=== PATIENT | male | born 1955 | race African-American/Black ===

== ENCOUNTER → 2017-01-28 12:53 | Emergency (ER) | payer OTHER ==
[2017-01-28 13:18] VITALS: BP 0/0
== END | disposition left against medical advice (07) ==
LOC: ED 12:53
DX: R06.02 Shortness of breath (principal); Z53.21 Procedure and treatment not carried out due to patient leaving prior to being seen by health care provider

== ENCOUNTER → 2017-02-09 14:52 | Emergency (ER) | payer SELFPAY ==
[2017-02-09 15:32] VITALS: BP 124/89
--- NOTE | 2017-02-09 20:41 | ED ---
Elisha Thakkar SooYoung, scribed for Evert Prince MD on 02/09/17 at 1530 . Substance Abuse/Use - HPI Summary HPI Summary: A 61 y/o M GREGORY presents to ED with ETOH intoxication. Pt was found laying on the sidewalk, and unable to get up. Last seen in ED on 01/28/17. Police and EMS were called. At bedside, pt says he "drank one beer," says he doesn't feel well , doesn't feel "conscious." Pt states he's unable to walk. PMHx: HTN, take Atenolol. - History Of Current Complaint Chief Complaint: EDSubstanceAbuse Stated Complaint: 2208 Time Seen by Provider: 02/09/17 15:06 Hx Obtained From: Patient Ingestion History: Type/Name Of Drug - ETOH Overdose Characteristics: Oral - Allergies/Home Medications Allergies/Adverse Reactions: Allergies Allergy/AdvReac Type Severity Reaction Status Date / Time No Known Allergies Allergy Verified 09/04/14 00:23 PMH/Surg Hx/FS Hx/Imm Hx Previously Healthy: No - LEVEL 5 CAVEAT - ETOH INTOXICATION Endocrine/Hematology History: Denies: Hx Diabetes Cardiovascular History: Reports: Hx Hypertension - on meds Denies: Hx Pacemaker/ICD Sensory History: Denies: Hx Hearing Aid Psychiatric History: Reports: Hx Depression Denies: Hx Panic Disorder - Surgical History Surgery Procedure, Year, and Place: rt hand cyst removal as a child; laceration repair rt forearm Infectious Disease History: Denies: Traveled Outside the [place] in Last 30 Days - Family History Known Family History: Positive: Hypertension, Diabetes - Social History Occupation: Unemployed Lives: Alone Alcohol Use: Daily Alcohol Amount: "beer" almost daily Hx Substance Use: Yes Substance Use Comment - Amount & Last Used: rare Hx Tobacco Use: Yes Smoking Status (MU): Heavy Every Day Tobacco Smoker Type: Cigarettes Review of Systems Constitutional: Other - pos: ETOH intoxication Negative: Fever All Other Systems Reviewed And Are Negative: Yes Physical Exam - Summary Physical Exam Summary: The patient is well-nourished in no acute distress and in no acute pain. The skin is warm and dry and skin color reflects adequate perfusion. HEENT: The head is normocephalic and atraumatic. The pupils are equal and reactive. The conjunctivae are clear and without drainage. Nares are patent and without drainage. Mouth reveals moist mucous membranes. The external ears are intact. Neck is supple with full range of motion and non-tender. There are no carotid bruits. There is no neck vein distension. Respiratory: Chest is non-tender. Lungs are clear to auscultation and breath sounds are symmetrical and equal. Cardiovascular: Heart is regular rate and rhythm. There is no murmur or rub auscultated. Abdomen: The abdomen is soft and non-tender. Musculoskeletal: There is no back pain noted. Extremities are non-tender with full range of motion. Neurological: Patient is alert and oriented to person, place and time. The patient has symmetrical motor strength in all four extremities. Cranial nerves are grossly intact. Psychiatric: Appears intoxicated. Triage Information Reviewed: Yes Vital Signs On Initial Exam: Initial Vitals Temp Pulse Resp BP Pulse Ox 98 F 95 18 124/89 91 02/09/17 15:14 02/09/17 15:14 02/09/17 15:14 02/09/17 15:14 02/09/17 15:14 Vital Signs Reviewed: Yes Diagnostics - Vital Signs Vital Signs Temp Pulse Resp BP Pulse Ox 02/09/17 15:14 98 F 95 18 124/89 91 - Laboratory Lab Statement: Any lab studies that have been ordered have been reviewed, and results considered in the medical decision making process. Re-Evaluation - Re-Evaluation 1 Re-Evaluation Time: 20:14 Change: Unchanged Comment: Pt is alert after sleeping, requesting D/C. Course/Dx - Diagnoses Differential Diagnosis/HQI/PQRI: Positive: Alcohol Abuse Provider Diagnoses: Acute alcohol intoxication Discharge - Discharge Plan Condition: Stable Disposition: HOME Patient Education Materials: Alcohol Intoxication (ED) Referrals: Andrey Crespo MD [Primary Care Provider] - 3 Days Additional Instructions: Follow up with your primary care provider in 3 days. Please return to the ED if you experience new or worsening symptoms. The documentation as recorded by the Elisha oro SooYoung accurately reflects the service I personally performed and the decisions made by me, Evert Prince MD.
== END | disposition home or self-care (01) ==
LOC: ED 14:52
DX: F10.129 Alcohol abuse with intoxication, unspecified (principal); F17.210 Nicotine dependence, cigarettes, uncomplicated
CPT/HCPCS: 99282

== ENCOUNTER 2017-02-21 18:08 | Emergency (ER) | payer SELFPAY ==
[2017-02-21 18:25] VITALS: BP 114/77
--- NOTE | 2017-02-21 19:44 | RAD ---
Indication: Left lower rib pain. 3 views of the left ribs suggestion of a fracture of the left ninth and possibly 10th rib. The cortex appears to be somewhat discontinuous. IMPRESSION: Fracture of the left ninth and 10th ribs that is nondisplaced.
[2017-02-21] MEDS ORDERED: Ibuprofen TAB* 600 MG PO ONE (21:16)
--- NOTE | 2017-02-21 21:23 | ED ---
Jose Thakkar Thomas, scribed for Rigoberto Gaines MD on 02/21/17 at 1830 . GI/ HPI - HPI Summary HPI Summary: The pt is a 59 y/o M presenting to the ED c/o hunger. He states that he wants something to eatwarm. He denies eating in the last thre days. He additionally notes L-sided rib pain s/p a fall two days ago. He reports that it is painful when he takes deep breaths. He denies SOB. He takes Tylenol BID for an unspecified reason. He also takes blood pressure medication as well as medication for his depression. PMHx: HTN, depression. PSHx: laceration repair right forearm. SHx: smpoking, daily alcohol use, no illicit drug use. FHx: DM, HTN. - History of Current Complaint Chief Complaint: EDWeakness Stated Complaint: WEAKNESS Hx Obtained From: Patient Onset/Duration: Still Present Timing: Constant Associated Signs and Symptoms: Positive: Other: - POS: hunger (last ate three days ago), L-sided rib pain s/p a fall two days ago Aggravating Factor(s): Nothing Alleviating Factor(s): Nothing - Additional Pertinent History Primary Care Physician: [id number] - Allergy/Home Medications Allergies/Adverse Reactions: Allergies Allergy/AdvReac Type Severity Reaction Status Date / Time No Known Allergies Allergy Verified 09/04/14 00:23 PMH/Surg Hx/FS Hx/Imm Hx Previously Healthy: No Endocrine/Hematology History: Denies: Hx Diabetes Cardiovascular History: Reports: Hx Hypertension - on meds Denies: Hx Pacemaker/ICD Sensory History: Denies: Hx Hearing Aid Psychiatric History: Reports: Hx Depression Denies: Hx Panic Disorder - Surgical History Surgery Procedure, Year, and Place: rt hand cyst removal as a child; laceration repair rt forearm Infectious Disease History: No Infectious Disease History: Denies: Traveled Outside the [place] in Last 30 Days - Family History Known Family History: Positive: Hypertension, Diabetes - Social History Alcohol Use: Daily Alcohol Amount: "beer" almost daily Hx Substance Use: Yes Substance Use Type: Reports: None Substance Use Comment - Amount & Last Used: rare Hx Tobacco Use: Yes Smoking Status (MU): Heavy Every Day Tobacco Smoker Type: Cigarettes Review of Systems Negative: Fever Positive: Other - POS: L-sided rib pain, worsened with deep breaths Positive: Other - POS: hunger (last ate three days ago) All Other Systems Reviewed And Are Negative: Yes Physical Exam Triage Information Reviewed: Yes Vital Signs On Initial Exam: Initial Vitals Temp Pulse Resp BP Pulse Ox 98.8 F 96 16 114/77 96 02/21/17 18:18 02/21/17 18:18 02/21/17 18:18 02/21/17 18:18 02/21/17 18:18 Vital Signs Reviewed: Yes Appearance: Positive: Well-Appearing, No Pain Distress, Well-Nourished Skin: Positive: Warm, Skin Color Reflects Adequate Perfusion, Dry Head/Face: Positive: Normal Head/Face Inspection Eyes: Positive: EOMI, CACHORRO ENT: Positive: Normal ENT inspection Neck: Positive: Supple, Nontender Respiratory/Lung Sounds: Positive: Clear to Auscultation, Breath Sounds Present Cardiovascular: Positive: RRR Abdomen Description: Positive: Nontender, Soft Musculoskeletal: Positive: Normal, Strength/ROM Intact Neurological: Positive: Normal, Sensory/Motor Intact, Alert, Oriented to Person Place, Time Psychiatric: Positive: Affect/Mood Appropriate - [place] Coma Scale Coma Scale Total: 15 Diagnostics - Vital Signs Vital Signs Temp Pulse Resp BP Pulse Ox 02/21/17 18:18 98.8 F 96 16 114/77 96 - Laboratory Lab Statement: Any lab studies that have been ordered have been reviewed, and results considered in the medical decision making process. - Radiology CXR with Ribs Xray Interpretation: Positive (See Comments) - Fracture of the left ninth and 10th ribs that is nondisplaced Radiology Interpretation Completed By: Radiologist ARIELLA Course/Dx - Course Assessment/Plan: The pt is a 59 y/o M presenting to the ED c/o hunger. He states that he wants something to eatwarm. He denies eating in the last thre days. He additionally notes L-sided rib pain s/p a fall two days ago. He reports that it is painful when he takes deep breaths. He denies SOB. He takes Tylenol BID for an unspecified reason. He also takes blood pressure medication as well as medication for his depression. PMHx: HTN, depression. PSHx: laceration repair right forearm. SHx: smpoking, daily alcohol use, no illicit drug use. FHx: DM, HTN. In the ED course the patient was given hot food. XR ribs reveals Fracture of the left ninth and 10th ribs that is nondisplaced. ED physician has reviewed this radiology report and agrees. DISCUSSED X-RAY REPORT WITH PATIENT AND DISCUSSED USE OF INCENTIVE SPIROMETER WITH PATIENT. HE WILL F/U WITH PMD. - Diagnoses Provider Diagnoses: Left rib fracture Discharge - Discharge Plan Condition: Stable Disposition: HOME Prescriptions: Ibuprofen TAB* [Motrin TAB* 600 MG] 600 mg PO Q6H PRN #20 tab PRN Reason: Pain Patient Education Materials: Rib Fracture (ED) Referrals: Andrey Crespo MD [Primary Care Provider] - Additional Instructions: FOLLOW UP WITH YOUR DOCTOR. RETURN TO THE EMERGENCY DEPARTMENT FOR ANY WORSENING OF YOUR CONDITION OR QUESTIONS OR CONCERNS. The documentation as recorded by the Jose oro Thomas accurately reflects the service I personally performed and the decisions made by me, Rigoberto Gaines MD.
== END 2017-02-21 22:09 | disposition home or self-care (01) ==
LOC: ED 18:08
DX: S22.32XA Fracture of one rib, left side, initial encounter for closed fracture (principal); I10 Essential (primary) hypertension; F17.210 Nicotine dependence, cigarettes, uncomplicated; W19.XXXA Unspecified fall, initial encounter; Y92.9 Unspecified place or not applicable
CPT/HCPCS: 99282; A9270-GY

== ENCOUNTER 2017-03-05 16:16 | Emergency (ER) | payer SELFPAY ==
[2017-03-05] MEDS ORDERED: Thiamine IV* 100 MG, Folic Acid IV* 1 MG, Multiple Vitamin IV ADULT* 10 ML in NS 0.9% 1... IV ONE (17:01)
[2017-03-05 17:12] LABS: Hematocrit 44 % (42-52); Hemoglobin 15.1 g/dl (14.0-18.0); Mean Corpuscular HGB Conc 34 g/dl (31-36); Mean Corpuscular Hemoglobin 35 pg (27-31); Mean Corpuscular Volume 103 fL (80-94); Mean Platelet Volume 7 um3 (7.4-10.4); Red Blood Count 4.28 10^6/ul (4.0-5.4); Red Cell Distribution Width 14 % (10.5-15); White Blood Count 6.2 10^3/ul (3.5-10.8)
[2017-03-05 17:26] LABS: ALT 45 U/L (7-52); Albumin 5.1 g/dL (3.2-5.2); Alkaline Phosphatase 66 U/L (34-104); BUN/Creatinine Ratio 16.3 (8-20); Blood Urea Nitrogen 15 mg/dL (6-24); CO2 Carbon Dioxide 25 mmol/L (22-32); Calcium 9.7 mg/dL (8.6-10.3); Chloride 98 mmol/L (101-111); Creatine Kinase 260 U/L (10-223); EGFR African American 108.3 (>60); EGFR Non-African American 84.2 (>60); Globulin 3.6 g/dL (2-4); Glucose 81 mg/dL (70-100); Sodium 134 mmol/L (133-145); Total Protein 8.7 g/dL (6.4-8.9)
[2017-03-05] MEDS ORDERED: LORazepam INJ* 2 MG/ML 1 ML VIAL IV PUSH ONE ×2 (17:27→22:37)
[2017-03-05 17:45] LABS: Anion Gap 11 mmol/L (2-11)
--- NOTE | 2017-03-05 17:45 | RAD ---
INDICATION: Questionable head injury in the presence of EtOH COMPARISON: CT brain dated March 31, 2016 TECHNIQUE: Contiguous axial sections of the brain were obtained from the skull base to the vertex without contrast. FINDINGS: The ventricles, cisterns and sulci exhibit symmetrical involutional changes not greatly changed since the previous head CT and advanced for the patient's age. There is mild periventricular and subcortical white matter hypoattenuation which can be seen with chronic microvascular disease. Otherwise the perez-white matter differentiation is adequately maintained and there is no sulcal effacement. No significant focal abnormality or mass effect is present. There is no evidence for intracranial hemorrhage. No significant focal osseous abnormality is present. The visualized portion of the paranasal sinuses and mastoid air cells appear clear. IMPRESSION: Stable chronic findings as described above without CT evidence of acute intracranial injury.
[2017-03-05 17:58] LABS: Acetaminophen < 15 mcg/mL; Salicylate < 2.50 mg/dL (<30)
[2017-03-05 18:06] LABS: Alcohol 467 mg/dL (<10)
[2017-03-05 18:09] LABS: TSH (Thyroid Stimulating Horm) 0.31 mcIU/mL (0.34-5.60)
--- NOTE | 2017-03-05 18:22 | RAD ---
INDICATION: Right shoulder pain after a fall. +EtOH. COMPARISON: Chest x-ray dated March 31, 2016 TECHNIQUE: Single AP portable view of the chest and 3 views of the right shoulder were obtained. FINDINGS: Image quality is compromised due to the relative inferiority of a portable chest x-ray. The heart and mediastinum exhibit normal size and contour. The lungs are grossly clear. There is no evidence of a large pleural effusion. Overlying the superior lateral margin of the right humeral head there is a stable 3 mm long oval shaped focus of calcium which could represent calcific tendinitis of the supraspinatus tendon. The bones are otherwise well corticated and appropriately aligned. IMPRESSION: 1. No radiographic evidence for acute cardiopulmonary abnormality on this portable chest x-ray. 2. No radiographic evidence of acute traumatic injury to the right shoulder.
[2017-03-05 21:57] LABS: Benzodiazepine Urine Screen None Detected (None Detect)
[2017-03-05 22:03] LABS: Urine Bacteria Absent (Absent); Urine Bilirubin Negative (Negative); Urine Glucose Negative (Negative); Urine Nitrite Negative (Negative)
--- NOTE | 2017-03-06 06:42 | ED ---
Leatha Thakkar Rebecca, scribed for Evert Prince MD on 03/06/17 at 0334 . Progress - Progress Note Progress Note: Pt was signed out from Dr. Latham at shift change, pending disposition. - Results/Orders Results/Orders: CT Neck, as read by radiologist: Negative for cervical fracture or acute cervical malalignment. Anterolisthesis of C2 on C3 as well as the reversal of the cervical lordosis are chronic and were present on March 31, 2016. 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 Blebs lung apices. ED physician reviewed radiology report and agrees . Re-Evaluation - Re-Evaluation First Eval Re-Evaluation Time: 06:35 Change: Improved Comment: Discussed CT results and D/C plan. Course/Dx - Course Course Of Treatment: Pt was signed out from Dr. Latham at shift change, pending disposition. Discussed care of pt with Dr. Latham who requested a Neck CT. Neck CT reveals no acute findings. Pt is stable and will be D/C to home with Dx of concussion, R shoulder contusion and acute alcohol intoxication. He understands and agrees. Elevated BP noted and advised to f/u. - Diagnoses Provider Diagnoses: Concussion, Contusion of right shoulder, Alcohol intoxication - Provider Notifications Discussed Care Of Patient With: Sanjuana Latham Time Discussed With Above Provider: 03:32 Instructed by Provider To: Other - Dr. Latham called and felt that the pt needed a C-Spine CT, so it has been ordered The documentation as recorded by the darioibLeatha love Rebecca accurately reflects the service I personally performed and the decisions made by me, Evert Prince MD.
[2017-03-06 06:59] VITALS: BP 143/96
--- NOTE | 2017-03-06 10:49 | RAD ---
INDICATION: Head trauma. Alcohol use. Question fracture. COMPARISON: March 31, 2016 CT. TECHNIQUE: Multidetector CT images foramen magnum to lung apices without contrast. Multiplanar reformation. REPORT: Pulmonary bulla noted at the RIGHT lung apex. 3 mm degenerative C2-C3 anterolisthesis without significant change. Negative for facet subluxation at any level. No cervical vertebral body or posterior element fracture evident. Negative for paravertebral hematoma. Diffuse degenerative spondylosis and facet joint osteoarthritis. At C2-C3 anterolisthesis, uncinate process spurring, and disc height loss and facet joint osteoarthritis results in moderate RIGHT and severe LEFT foraminal stenosis. At C3-C4 there is mild dorsal disc osteophyte complex results in mild acquired central canal stenosis. Uncinate process spurring and facet joint osteoarthritis results in severe RIGHT foraminal stenosis. At C4-C5 uncinate process spurring and facet joint osteoarthritis results in moderate RIGHT foraminal stenosis. At C5-C6 uncinate process spurring results in mild RIGHT acquired foraminal stenosis. At C6-C7 uncinate process spurring and facet joint osteoarthritis results in mild RIGHT and moderate LEFT foraminal stenosis. IMPRESSION: No CT evidence for traumatic cervical spine injury. No significant change in diffuse degenerative spondylosis and posterior element osteoarthritis with associated mild C3-C4 acquired central canal stenosis and multilevel foraminal stenosis.
== END 2017-03-06 06:59 | disposition home or self-care (01) ==
LOC: ED 16:16
DX: S06.0X9A Concussion with loss of consciousness of unspecified duration, initial encounter (principal); S40.011A Contusion of right shoulder, initial encounter; F10.129 Alcohol abuse with intoxication, unspecified; W19.XXXA Unspecified fall, initial encounter; Y92.9 Unspecified place or not applicable
CPT/HCPCS: 36415; 70450; 71010; 72125; 80053; 80307; 80320; 80329; 81003; 81015; 82140; 82550; 83605; 83735; 84443; 85025; 85610; 93005; 96360; 96374; 96376; 99284; G0480; J2060; J3411

== ENCOUNTER 2017-03-15 22:28 | Emergency (ER) | payer OTHER ==
--- NOTE | 2017-03-16 06:48 | ED ---
Stepan Thakkar Nikita, scribed for Rigoberto Gaines MD on 03/16/17 at 0104 . Substance Abuse/Use - HPI Summary HPI Summary: This patient is a 61 year old M BIB police to ED with a chief complaint of ETOH abuse since 1000. Pt was found in parking lot intoxicated. Police fed him, and he is currently sleeping. The patient rates the pain 8/10 in severity. Symptoms aggravated by nothing. Symptoms alleviated by nothing. Patient reports bilateral LE pain. - History Of Current Complaint Chief Complaint: EDSubstanceAbuse Stated Complaint: GENERAL ILLNESS Time Seen by Provider: 03/16/17 00:05 Hx Obtained From: Patient Onset/Duration of Drug/ETOH Abuse: Hours Timing Of Abuse: Daily Severity Initially: Moderate Severity Currently: Moderate Aggravating Factor(s): Nothing Alleviating Factor(s): Nothing Associated Signs And Symptoms: Other: - bilateral LE pain - Allergies/Home Medications Allergies/Adverse Reactions: Allergies Allergy/AdvReac Type Severity Reaction Status Date / Time No Known Allergies Allergy Verified 03/15/17 22:45 PMH/Surg Hx/FS Hx/Imm Hx Endocrine/Hematology History: Denies: Hx Diabetes Cardiovascular History: Reports: Hx Hypertension - on meds Denies: Hx Pacemaker/ICD Sensory History: Denies: Hx Hearing Aid Psychiatric History: Reports: Hx Depression Denies: Hx Panic Disorder - Surgical History Surgery Procedure, Year, and Place: rt hand cyst removal as a child; laceration repair rt forearm Infectious Disease History: No Infectious Disease History: Denies: Traveled Outside the [place] in Last 30 Days - Family History Known Family History: Positive: Hypertension, Diabetes - Social History Alcohol Use: Daily Alcohol Amount: "beer" almost daily Hx Substance Use: Yes Substance Use Type: Reports: None Substance Use Comment - Amount & Last Used: rare Hx Tobacco Use: Yes Smoking Status (MU): Heavy Every Day Tobacco Smoker Type: Cigarettes Review of Systems Positive: Other - bilateral LE pain Neurological: Other - ETOH intoxication All Other Systems Reviewed And Are Negative: Yes Physical Exam Triage Information Reviewed: Yes Vital Signs On Initial Exam: Initial Vitals Temp Pulse Resp BP Pulse Ox 97.2 F 109 18 135/103 93 03/15/17 22:41 03/15/17 22:41 03/15/17 22:41 03/15/17 22:41 03/15/17 22:41 Vital Signs Reviewed: Yes Appearance: Positive: Well-Appearing, No Pain Distress Skin: Positive: Warm, Skin Color Reflects Adequate Perfusion, Dry Head/Face: Positive: Normal Head/Face Inspection Eyes: Positive: EOMI, CACHORRO ENT: Positive: Normal ENT inspection Neck: Positive: Supple, Nontender Respiratory/Lung Sounds: Positive: Clear to Auscultation, Breath Sounds Present Cardiovascular: Positive: RRR Abdomen Description: Positive: Nontender, Soft Bowel Sounds: Positive: Present Musculoskeletal: Positive: Normal, Strength/ROM Intact Neurological: Positive: Normal, Sensory/Motor Intact, Alert, Oriented to Person Place, Time Psychiatric: Positive: Affect/Mood Appropriate - [place] Coma Scale Coma Scale Total: 15 Diagnostics - Vital Signs Vital Signs Temp Pulse Resp BP Pulse Ox 03/15/17 22:41 97.2 F 109 18 135/103 93 - Laboratory Lab Statement: Any lab studies that have been ordered have been reviewed, and results considered in the medical decision making process. Course/Dx - Course Assessment/Plan: This patient is a 61 year old M BIB police to ED with a chief complaint of ETOH abuse since 1000. Pt was found in parking lot intoxicated. Police fed him, and he is currently sleeping. The patient rates the pain 8/10 in severity. Symptoms aggravated by nothing. Symptoms alleviated by nothing. Patient reports bilateral LE pain. In the ED course, pt slept. Medications reviewed. BP noted and advised to follow up with PCP. Pt will be discharged. Pt is agreeable with this plan. - Diagnoses Provider Diagnoses: Alcohol intoxication Discharge - Discharge Plan Condition: Stable Disposition: HOME Patient Education Materials: Alcohol Intoxication (ED) Referrals: Andrey Crespo MD [Primary Care Provider] - [facility]COH[facility] DR[facility] [Outside] [facility] [Outside] Additional Instructions: FOLLOW UP WITH YOUR DOCTOR. RETURN TO THE EMERGENCY DEPARTMENT FOR ANY WORSENING OF YOUR CONDITION OR QUESTIONS OR CONCERNS. The documentation as recorded by the Stepan oro Nikita accurately reflects the service I personally performed and the decisions made by me, Rigoberto Gaines MD.
[2017-03-16 09:38] VITALS: BP 139/74
== END 2017-03-16 09:05 | disposition home or self-care (01) ==
LOC: ED 22:28
DX: F10.129 Alcohol abuse with intoxication, unspecified (principal); Z86.79 Personal history of other diseases of the circulatory system; F17.210 Nicotine dependence, cigarettes, uncomplicated
CPT/HCPCS: 99282

== ENCOUNTER 2017-03-16 14:56 | Emergency (ER) | payer OTHER ==
--- NOTE | 2017-03-16 15:59 | ED ---
Throat Pain/Nasal Congestion - HPI Summary HPI Summary: Pt here w/ URI sx and generalized weakness, fatigue. Rhinorrhea, ST, cough past week. Reports h/o rib fx diagnosed a few weeks ago and concerned he may have pneumonia. He has tried nothing to alleviate sx. He smokes nad drinks ETOH (was d/c'd this morning - pt admits he didn't make it home to take his routine meds as he "couldn't make it".). He was intoxicated last night and reporting hunger. He is reporting hunger again now. Denies fever, chills, N/V/D, ab pain, dysuria, wounds, head injury. Reports he hurt his Rt shoulder weeks ago - explained he's had XR's here already - he did not remember these being done. Has HTN - did not take meds this morning when he left here - takes metoprolol 100mg in AM, 50mg PM and lisinopril. - History of Current Complaint Chief Complaint: EDExtremityLower Time Seen by Provider: 03/16/17 15:19 Hx Obtained From: Patient - Allergies/Home Medications Allergies/Adverse Reactions: Allergies Allergy/AdvReac Type Severity Reaction Status Date / Time No Known Allergies Allergy Verified 03/15/17 22:45 PMH/Surg Hx/FS Hx/Imm Hx Previously Healthy: No - intoxicated earlier today, may still be Endocrine/Hematology History: Denies: Hx Diabetes Cardiovascular History: Reports: Hx Hypertension - on meds - metoprolol 100mg AM , 50mg PM, lisinopril Denies: Hx Pacemaker/ICD Respiratory History: Denies: Hx Asthma, Hx Chronic Obstructive Pulmonary Disease (COPD), Hx Pneumonia Sensory History: Denies: Hx Hearing Aid Psychiatric History: Reports: Hx Depression, Hx Substance Abuse - ETOH Denies: Hx Panic Disorder - Surgical History Surgery Procedure, Year, and Place: rt hand cyst removal as a child; laceration repair rt forearm Infectious Disease History: No Infectious Disease History: Denies: Traveled Outside the [place] in Last 30 Days - Family History Known Family History: Positive: Hypertension, Diabetes - Social History Alcohol Use: Daily Alcohol Amount: "beer" almost daily Hx Substance Use: Yes Substance Use Type: Reports: None Substance Use Comment - Amount & Last Used: rare Hx Tobacco Use: Yes Smoking Status (MU): Current Every Day Smoker Type: Cigarettes Review of Systems Positive: Fatigue. Negative: Fever, Chills Eyes: Negative Negative: Photophobia, Blurred Vision, Diplopia, Drainage, Erythema Positive: Sore Throat, Nasal Discharge Cardiovascular: Negative Negative: Palpitations, Chest Pain Positive: Cough Gastrointestinal: Negative Negative: Abdominal Pain, Vomiting, Diarrhea, Nausea Genitourinary: Negative Musculoskeletal: Negative Skin: Negative Positive: Weakness - feels weak in general Positive: Anxious All Other Systems Reviewed And Are Negative: Yes Physical Exam Triage Information Reviewed: Yes Vital Signs On Initial Exam: Initial Vitals BP 144/101 03/16/17 15:19 Vital Signs Reviewed: Yes Appearance: Positive: No Pain Distress Skin: Positive: Warm, Dry Head/Face: Positive: Normal Head/Face Inspection Eyes: Positive: EOMI ENT: Positive: Hearing grossly normal Respiratory/Lung Sounds: Positive: Clear to Auscultation, Breath Sounds Present. Negative: Rales, Rhonchi, Wheezes Cardiovascular: Positive: Pulses are Symmetrical in both Upper and Lower Extremities, Tachycardia - mild - hasn't taken metoprolol today, S1, S2. Negative: Murmur, Rub, Leg Edema Left, Leg Edema Right Abdomen Description: Positive: Nontender, Soft. Negative: CVA Tenderness (R), CVA Tenderness (L) Bowel Sounds: Positive: Present Musculoskeletal: Positive: Normal, Strength/ROM Intact Neurological: Positive: Normal, Sensory/Motor Intact, Alert, Oriented to Person Place, Time, CN Intact II-III Psychiatric: Positive: Other - pt repeats himself but is aware he's doing so; subtle smell of ETOH; pleasant, cooperative but insistent at times - [place] Coma Scale Coma Scale Total: 15 Diagnostics - Vital Signs Vital Signs Temp Pulse Resp BP Pulse Ox 03/16/17 15:26 98.2 F 101 14 144/101 99 03/16/17 15:21 107 95 03/16/17 15:19 144/101 - Laboratory Result Diagrams: 03/16/17 16:20 03/16/17 16:20 Lab Statement: Any lab studies that have been ordered have been reviewed, and results considered in the medical decision making process. Re-Evaluation - Re-Evaluation First Eval Change: Improved - pt less persistent; pleasant, calm, cooperative after sleeping and receiving IVF and vitamins + sandwichs - okay to be d/c'd home via cab EENT Course/Dx - Course Course Of Treatment: Pt here w/ "not feeling well". Reports URI sx. CXR w/o pneumonia and influenza swabs neg. His labs indicate ETOH intoxication and elevated lactic level as a result as WBC, CRP WNL and no fever. He had mild tachycardiac w/ HTN upon arrival - admits he missed his metorpolol dose this morning - provided and vitals improved. He did not exhibit withdrawal sx throughout his course of stay. Walked to bathroom before d/c w/o assistance w/ good balance - appears coordinated, speech is clear, thoughts are clear. Agrees w/ d/c home via cab and discussed care for self to help him through URI sx. Discussed danger s/sx of when to return to ED. Pt agrees w/ plan. - Diagnoses Provider Diagnoses: URI, acute, Alcohol intoxication Discharge - Discharge Plan Condition: Stable Disposition: HOME Patient Education Materials: Upper Respiratory Infection (ED), Alcohol Intoxication (ED) Referrals: Andrey Crespo MD [Primary Care Provider] - Additional Instructions: Nasal wash (netti pot) & throat gargle 2 x day with 8 ounces of warm water + 1/ 4 teaspoon of salt Drink 60+ ounces of water daily Sleep 8+ hours per night Avoid Dairy and sugar Hot herbal/decaf tea with lemon & honey Chicken broth (preferably organic, free range chicken) Humidifier in house, but especially near bed at night Try a facial steam Vicks vapor rub Cough lozenges Consider taking Vitamin D3 5,000iu and Vitamin C 1,000mg every day during illness
[2017-03-16] MEDS ORDERED: Metoprolol Tartrate TAB* 50 mg PO ONE (16:05)
[2017-03-16 16:35] LABS: Hematocrit 36 % (42-52); Hemoglobin 12.2 g/dl (14.0-18.0); Mean Corpuscular HGB Conc 34 g/dl (31-36); Mean Corpuscular Hemoglobin 35 pg (27-31); Mean Corpuscular Volume 102 fL (80-94); Mean Platelet Volume 6 um3 (7.4-10.4); Red Blood Count 3.52 10^6/ul (4.0-5.4); Red Cell Distribution Width 14 % (10.5-15); White Blood Count 5.2 10^3/ul (3.5-10.8)
[2017-03-16 16:51] LABS: Albumin 4.7 g/dL (3.2-5.2); BUN/Creatinine Ratio 11.8 (8-20); C Reactive Protein 1.21 mg/L (< 5.00); Calcium 9.6 mg/dL (8.6-10.3); EGFR African American 118.7 (>60); EGFR Non-African American 92.3 (>60); Globulin 3.3 g/dL (2-4); Magnesium 1.7 mg/dL (1.9-2.7); Potassium 3.8 mmol/L (3.5-5.0); Total Bilirubin 0.6 mg/dL (0.2-1.0)
[2017-03-16 17:10] LABS: TSH (Thyroid Stimulating Horm) 0.51 mcIU/mL (0.34-5.60)
--- NOTE | 2017-03-16 17:15 | RAD ---
INDICATION: Cough COMPARISON: Chest x-ray dated March 05, 2017 TECHNIQUE: PA and lateral views of the chest were obtained. FINDINGS: The heart and mediastinum are normal in size and contour. The lungs are grossly clear. There is no evidence of large pleural effusion. Visualized bones are normal for the patient's age. There is no radiographic evidence of free air beneath the diaphragm IMPRESSION: No radiographic evidence of acute cardiopulmonary disease.
[2017-03-16] MEDS ORDERED: Magnesium Oxide TAB* 400 MG PO ONE (17:28)
[2017-03-16] MEDS ORDERED: Folic Acid TAB* 1 MG PO ONE (17:29)
[2017-03-16] MEDS ORDERED: Thiamine TAB* 100 MG TAB PO ONE (17:29)
[2017-03-16] MEDS: NS 0.9% 1000 ML* 2,000 ML IV ONE (18:23)
[2017-03-16 20:28] VITALS: BP 127/92
[2017-03-17] MEDS ORDERED: Cyanocobalamin TAB* 500 MCG PO ONE (17:30)
== END 2017-03-16 20:28 | disposition home or self-care (01) ==
LOC: ED 14:56
DX: J06.9 Acute upper respiratory infection, unspecified (principal); F10.129 Alcohol abuse with intoxication, unspecified; J34.89 Other specified disorders of nose and nasal sinuses; R53.1 Weakness; R53.83 Other fatigue; F17.210 Nicotine dependence, cigarettes, uncomplicated
CPT/HCPCS: 36415; 71020; 80053; 80320; 83605; 83735; 84443; 85025; 86140; 87502; 87651; 99282; A9270-GY; G0480

== ENCOUNTER 2017-03-31 20:29 | Emergency (ER) | payer OTHER ==
--- NOTE | 2017-03-31 21:44 | ED ---
Jose Thakkar Thomas, scribed for Andrey Peña MD on 03/31/17 at 2109 . Substance Abuse/Use - HPI Summary HPI Summary: The pt is a 61 y/o M BIBA after he was intoxicated on a [employer] bus and could not recall his home address due to recent alcohol use. He has a Hx of daily ETOH abuse per EMR. The patient admits to drinking alcohol today. He takes ibuprofen and atenolol. He denies any pain or head trauma. He denies any attempts to hurt himself. PMHx: HTN, depression, ETOH abuse. PSHx: R hand cyst removal, laceration repair right forearm. SHx: current smoker, daily alcohol use , no illicit drug use. FHx: DM, HTN. - History Of Current Complaint Chief Complaint: EDSubstanceAbuse Stated Complaint: ETOH Time Seen by Provider: 03/31/17 20:59 Hx Obtained From: Patient, Medical Records - EMR Ingestion History: Type/Name Of Drug - ETOH Overdose Characteristics: Oral Timing Of Abuse: Daily Character: Other - Intoxicated Aggravating Factor(s): Nothing Alleviating Factor(s): Nothing Associated Signs And Symptoms: Negative, Other: - He denies pain, trauma, or attempts to hurt himself. - Allergies/Home Medications Allergies/Adverse Reactions: Allergies Allergy/AdvReac Type Severity Reaction Status Date / Time No Known Allergies Allergy Verified 03/15/17 22:45 PMH/Surg Hx/FS Hx/Imm Hx Previously Healthy: No Endocrine/Hematology History: Denies: Hx Diabetes Cardiovascular History: Reports: Hx Hypertension - on meds - metoprolol 100mg AM , 50mg PM, lisinopril Denies: Hx Pacemaker/ICD Respiratory History: Denies: Hx Asthma, Hx Chronic Obstructive Pulmonary Disease (COPD), Hx Pneumonia Psychiatric History: Reports: Hx Depression, Hx Substance Abuse - ETOH Denies: Hx Panic Disorder - Surgical History Surgery Procedure, Year, and Place: rt hand cyst removal as a child; laceration repair rt forearm Infectious Disease History: No Infectious Disease History: Denies: Traveled Outside the [place] in Last 30 Days - Family History Known Family History: Positive: Hypertension, Diabetes - Social History Alcohol Use: Daily Alcohol Amount: "beer" almost daily Hx Substance Use: Yes Substance Use Type: Reports: None Substance Use Comment - Amount & Last Used: rare Hx Tobacco Use: Yes Smoking Status (MU): Current Every Day Smoker Type: Cigarettes Review of Systems Negative: Fever Negative: Other - NEGATIVE: any pain Neurological: Other - Intoxicated; NEGATIVE: head trauma. All Other Systems Reviewed And Are Negative: Yes Physical Exam Triage Information Reviewed: Yes Vital Signs On Initial Exam: Initial Vitals Temp Pulse Resp BP Pulse Ox 97.1 F 90 16 101/84 95 03/31/17 20:40 03/31/17 20:40 03/31/17 20:40 03/31/17 20:40 03/31/17 20:40 Appearance: Positive: Well-Appearing, No Pain Distress Skin: Positive: Warm, Skin Color Reflects Adequate Perfusion Head/Face: Positive: Normal Head/Face Inspection, Other - he is wearing a baseball cap. The cap was removed, head inspected and palptated and no injuries found. Eyes: Positive: EOMI, CACHORRO ENT: Positive: Normal ENT inspection Neck: Positive: Nontender Respiratory/Lung Sounds: Positive: Clear to Auscultation, Breath Sounds Present Cardiovascular: Positive: RRR. Negative: Murmur Abdomen Description: Positive: Nontender Musculoskeletal: Positive: Strength/ROM Intact Neurological: Positive: Sensory/Motor Intact, Alert, Oriented to Person Place, Time, CN Intact II-III, Other - The patient speaks with slight slurred delayed speach as if he is intoxicated. He follows command, and is cooperative. Diagnostics - Vital Signs Vital Signs Temp Pulse Resp BP Pulse Ox 03/31/17 20:46 93 92 03/31/17 20:40 97.1 F 90 16 101/84 95 - Laboratory Lab Statement: Any lab studies that have been ordered have been reviewed, and results considered in the medical decision making process. Course/Dx - Course Course Of Treatment: 61 yr old male who admits to drinking today, and appears intoxicated without any evidence of head trauma on exam. Will await ETOH and labs. - Diagnoses Provider Diagnoses: ETOH abuse Discharge - Discharge Plan Condition: Fair Disposition: OTHER Discharge Disposition Comment: sign out to Dr Latham at 2200 with labs, dispo, reeval pending. Referrals: Andrey Crespo MD [Primary Care Provider] - The documentation as recorded by the Jose oro Thomas accurately reflects the service I personally performed and the decisions made by Mariana barrientos Walter, MD.
[2017-03-31 21:53] LABS: Hematocrit 37 % (42-52); Hemoglobin 12.5 g/dl (14.0-18.0); Mean Corpuscular HGB Conc 34 g/dl (31-36); Mean Corpuscular Hemoglobin 36 pg (27-31); Mean Corpuscular Volume 105 fL (80-94); Mean Platelet Volume 7 um3 (7.4-10.4); Red Blood Count 3.47 10^6/ul (4.0-5.4); Red Cell Distribution Width 15 % (10.5-15)
[2017-03-31 21:57] LABS: Comments Flag Yes
[2017-03-31 22:09] LABS: ALT 13 U/L (7-52); AST 26 U/L (13-39); Albumin 4.3 g/dL (3.2-5.2); Alkaline Phosphatase 48 U/L (34-104); Anion Gap 8 mmol/L (2-11); BUN/Creatinine Ratio 13.9 (8-20); Blood Urea Nitrogen 20 mg/dL (6-24); CO2 Carbon Dioxide 27 mmol/L (22-32); Calcium 9.3 mg/dL (8.6-10.3); Chloride 103 mmol/L (101-111); EGFR African American 64.6 (>60); EGFR Non-African American 50.2 (>60); Globulin 2.9 g/dL (2-4); Glucose 92 mg/dL (70-100); Potassium 3.7 mmol/L (3.5-5.0); Sodium 138 mmol/L (133-145); Total Protein 7.2 g/dL (6.4-8.9)
[2017-03-31 22:39] LABS: Acetaminophen < 15 mcg/mL; Salicylate < 2.50 mg/dL (<30)
[2017-03-31 22:41] LABS: Urine Bilirubin Negative (Negative); Urine Glucose Negative (Negative); Urine Nitrite Negative (Negative)
[2017-03-31 22:48] LABS: Alcohol 450 mg/dL (<10)
[2017-03-31 22:48] LABS: Benzodiazepine Urine Screen None Detected (None Detect)
[2017-04-01 11:38] VITALS: BP 128/110
== END 2017-04-01 11:42 | disposition home or self-care (01) ==
LOC: ED 20:29
DX: F10.10 Alcohol abuse, uncomplicated (principal); I10 Essential (primary) hypertension; F32.9 Major depressive disorder, single episode, unspecified; F17.200 Nicotine dependence, unspecified, uncomplicated; Y90.8 Blood alcohol level of 240 mg/100 ml or more
CPT/HCPCS: 36415; 80053; 80307; 80320; 80329; 81003; 84443; 85025; 99285; G0480

== ENCOUNTER 2017-04-01 15:57 | Emergency (ER) | payer OTHER ==
[2017-04-01 19:36] LABS: Hematocrit 39 % (42-52); Hemoglobin 13.3 g/dl (14.0-18.0); Mean Corpuscular HGB Conc 34 g/dl (31-36); Mean Corpuscular Hemoglobin 35 pg (27-31); Mean Corpuscular Volume 103 fL (80-94); Mean Platelet Volume 6 um3 (7.4-10.4); Red Blood Count 3.77 10^6/ul (4.0-5.4); Red Cell Distribution Width 14 % (10.5-15); White Blood Count 5.2 10^3/ul (3.5-10.8)
[2017-04-01 20:14] LABS: Albumin 4.3 g/dL (3.2-5.2); BUN/Creatinine Ratio 15.3 (8-20); Calcium 9.2 mg/dL (8.6-10.3); EGFR African American 100.7 (>60); EGFR Non-African American 78.3 (>60); Globulin 2.9 g/dL (2-4); Potassium 3.8 mmol/L (3.5-5.0); Total Bilirubin 0.5 mg/dL (0.2-1.0); Total Protein 7.2 g/dL (6.4-8.9)
[2017-04-01 23:01] VITALS: BP 103/74
--- NOTE | 2017-04-07 10:27 | ED ---
Anita Thakkar Alfonso, scribed for Viky Weber MD on 04/01/17 at 1808 . Syncope/Near Syncope - HPI Summary HPI Summary: This patient is a 61 year old M BIBA to [facility] with a chief complaint of lightheadedness earlier today. He states to EMS "I just can't walk and I need my blood pressure medicine. I just need something to eat and then I'll go home. " Patient reports body the pain 7/10 in severity. Symptoms aggravated by nothing. Symptoms alleviated by spontaneous resolution. Patient reports dizziness, and nausea. Patient denies ETOH use today, injury, vomiting, diarrhea , urinary symptoms, rashes, and loss of appetite. He lives alone. He presented to [facility] yesterday with a diagnosis of ETOH abuse and was discharged several hours ago with a bus pass home.. Tobacco abuse disorder. Patients medication reviewed this visit. - History Of Current Complaint Chief Complaint: EDSyncope Time Seen by Provider: 04/01/17 17:39 Hx Obtained From: Patient, EMS Onset/Duration: Sudden Onset, Lasting Hours, Resolved Timing: Constant Aggravating Factor(s): Nothing Alleviating Factor(s): Spontaneous Resolution Associated Signs And Symptoms: Other - dizziness, and nausea. Patient denies ETOH use today, injury, vomiting, diarrhea, urinary symptoms, rashes, and loss of appetite Frequency: Episodes x___ - 1 - Allergies/Home Medications Allergies/Adverse Reactions: Allergies Allergy/AdvReac Type Severity Reaction Status Date / Time No Known Allergies Allergy Verified 03/15/17 22:45 PMH/Surg Hx/FS Hx/Imm Hx Previously Healthy: No Endocrine/Hematology History: Denies: Hx Diabetes Cardiovascular History: Reports: Hx Hypertension - on meds - metoprolol 100mg AM , 50mg PM, lisinopril Denies: Hx Pacemaker/ICD Respiratory History: Denies: Hx Asthma, Hx Chronic Obstructive Pulmonary Disease (COPD), Hx Pneumonia Psychiatric History: Reports: Hx Depression, Hx Substance Abuse - ETOH Denies: Hx Panic Disorder - Surgical History Surgery Procedure, Year, and Place: rt hand cyst removal as a child; laceration repair rt forearm Infectious Disease History: Unable to Obtain/Confirm Infectious Disease History: Denies: Traveled Outside the [place] in Last 30 Days - Family History Known Family History: Positive: Hypertension, Diabetes - Social History Occupation: Unemployed Lives: Alone Alcohol Use: Daily Alcohol Amount: "beer" almost daily Hx Substance Use: Yes Substance Use Type: Reports: None Substance Use Comment - Amount & Last Used: rare Hx Tobacco Use: Yes Smoking Status (MU): Current Every Day Smoker Type: Cigarettes Review of Systems Constitutional: Negative Eyes: Negative ENT: Negative Positive: Nausea Neurological: Other - Dizziness All Other Systems Reviewed And Are Negative: Yes Physical Exam Triage Information Reviewed: Yes Vital Signs On Initial Exam: Initial Vitals Temp Pulse Resp BP Pulse Ox 97.5 F 87 18 126/92 98 04/01/17 16:05 04/01/17 16:05 04/01/17 16:05 04/01/17 16:05 04/01/17 16:05 Vital Signs Reviewed: Yes Appearance: Positive: Well-Appearing, No Pain Distress, Well-Nourished Skin: Positive: Warm, Skin Color Reflects Adequate Perfusion Head/Face: Positive: Normal Head/Face Inspection Eyes: Positive: Normal, EOMI, CACHORRO ENT: Positive: Normal ENT inspection, Hearing grossly normal, Pharynx normal, TMs normal Neck: Positive: Supple, Nontender, No Lymphadenopathy Respiratory/Lung Sounds: Positive: Clear to Auscultation, Breath Sounds Present , Decreased Breath Sounds Cardiovascular: Positive: Normal, RRR. Negative: Murmur Abdomen Description: Positive: Nontender, No Organomegaly, Soft Bowel Sounds: Positive: Present Musculoskeletal: Positive: Normal Neurological: Positive: Normal, Sensory/Motor Intact, Alert, Oriented to Person Place, Time, Other - ambulatory without difficulty Psychiatric: Positive: Normal, Affect/Mood Appropriate - Tao Coma Scale Coma Scale Total: 15 Diagnostics - Vital Signs Vital Signs Temp Pulse Resp BP Pulse Ox 04/01/17 17:30 85/60 04/01/17 17:00 76 107/74 99 04/01/17 16:30 86 114/85 99 04/01/17 16:28 109/78 04/01/17 16:14 87 100 04/01/17 16:09 89 98 04/01/17 16:08 126/92 04/01/17 16:05 97.5 F 87 18 126/92 98 - Laboratory Lab Results: Lab Results 04/01/17 04/01/17 Range/Units 19:26 19:26 WBC 5.2 (3.5-10.8) 10^3/ul RBC 3.77 L (4.0-5.4) 10^6/ul Hgb 13.3 L (14.0-18.0) g/dl Hct 39 L (42-52) % MCV 103 H (80-94) fL MCH 35 H (27-31) pg MCHC 34 (31-36) g/dl RDW 14 (10.5-15) % Plt Count 274 (150-450) 10^3/ul MPV 6 L (7.4-10.4) um3 Neut % (Auto) 41.6 (38-83) % Lymph % (Auto) 44.6 (25-47) % [place] % (Auto) 9.7 H (1-9) % Eos % (Auto) 2.1 (0-6) % Baso % (Auto) 2.0 (0-2) % Absolute Neuts (auto) 2.2 (1.5-7.7) 10^3/ul Absolute Lymphs (auto) 2.3 (1.0-4.8) 10^3/ul Absolute Monos (auto) 0.5 (0-0.8) 10^3/ul Absolute Eos (auto) 0.1 (0-0.6) 10^3/ul Absolute Basos (auto) 0.1 (0-0.2) 10^3/ul Absolute Nucleated RBC 0.01 10^3/ul Nucleated RBC % 0.2 Sodium 137 (133-145) mmol/L Potassium 3.8 (3.5-5.0) mmol/L Chloride 101 (101-111) mmol/L Carbon Dioxide 27 (22-32) mmol/L Anion Gap 9 (2-11) mmol/L BUN 15 (6-24) mg/dL Creatinine 0.98 (0.67-1.17) mg/dL Est GFR ( Amer) 100.7 (>60) Est GFR (Non-Af Amer) 78.3 (>60) BUN/Creatinine Ratio 15.3 (8-20) Glucose 100 (70-100) mg/dL Calcium 9.2 (8.6-10.3) mg/dL Total Bilirubin 0.50 (0.2-1.0) mg/dL AST 28 (13-39) U/L ALT 14 (7-52) U/L Alkaline Phosphatase 56 (34-104) U/L Troponin I 0.00 (<0.04) ng/mL Total Protein 7.2 (6.4-8.9) g/dL Albumin 4.3 (3.2-5.2) g/dL Globulin 2.9 (2-4) g/dL Albumin/Globulin Ratio 1.5 (1-3) Result Diagrams: 04/01/17 19:26 04/01/17 19:26 Lab Statement: Any lab studies that have been ordered have been reviewed, and results considered in the medical decision making process. - EKG 1856 Cardiac Rate: NL - BPM 81 EKG Rhythm: Sinus Rhythm EKG Interpretation: No acute ST and T wave changes EKG Comparison: No Significant Change - 03/05/17 Re-Evaluation - Re-Evaluation First Eval Change: Improved - Pt reports feeling better + po + ambulatory labs unremarkable requesting d.c home Course/Dx Assessment/Plan: Pt presents reporting lightheadeness, nausea and body wide pain and hunger. will chekc labs, ekg. po reassess - Diagnoses Provider Diagnoses: Lightheadedness, Nausea Discharge - Discharge Plan Condition: Stable Disposition: HOME Patient Education Materials: Lightheadedness (ED) Referrals: Andrey Crespo MD [Primary Care Provider] - Additional Instructions: - stay well hydrated. Drink plenty of non-alcoholic, non-caffinated beverages - eat and drink regular meals - take your medications as previously prescribed - contact your doctor to schedule a follow-up appointment. The documentation as recorded by the Anita oro Alfonso accurately reflects the service I personally performed and the decisions made by me, Viky Weber MD.
== END 2017-04-01 23:00 | disposition home or self-care (01) ==
LOC: ED 15:57
DX: R42 Dizziness and giddiness (principal); R11.0 Nausea; F17.210 Nicotine dependence, cigarettes, uncomplicated
CPT/HCPCS: 36415; 80053; 84484; 85025; 93005; 99283

== ENCOUNTER 2017-04-07 15:31 | Emergency (ER) | payer OTHER ==
--- NOTE | 2017-04-07 16:46 | ED ---
Substance Abuse/Use - HPI Summary HPI Summary: Patient presents to the ED with ETOH intox. He states he "doesn't feel well" but upon questioning he does not want any labs or otherwise. He is well known to the [facility] and continues to come in for ETOH use. VS stable. He states his bupenorphrine may be having an effect on him and he is unable to sleep. When prompted about his ETOH use causing the insmonia, he states he only has 1 beer per day. However he has a ETOH odor and is unable to focus on physical exam. Denies any other symptoms. Denies fevers, sweats or chills. Denies SI/HI. - History Of Current Complaint Chief Complaint: EDSubstanceAbuse Stated Complaint: ETOH Time Seen by Provider: 04/07/17 15:43 Hx Obtained From: Patient Ingestion History: Type/Name Of Drug - etoh Overdose Characteristics: Oral Timing Of Abuse: Daily Severity Initially: Moderate Severity Currently: Moderate Character: Lethargic, Stuporous Aggravating Factor(s): Nothing Alleviating Factor(s): Nothing Associated Signs And Symptoms: Sleep Disturbance - Risk Factor(s) Completed Suicide Risk Factors: Male - Allergies/Home Medications Allergies/Adverse Reactions: Allergies Allergy/AdvReac Type Severity Reaction Status Date / Time No Known Allergies Allergy Verified 03/15/17 22:45 Home Medications: Home Medications Atenolol TAB* [Tenormin TAB* 50 MG] 100 mg PO QAM 04/07/17 [History Confirmed ] traZODone TAB* [Desyrel TAB*] 50 mg PO BEDTIME PRN 04/07/17 [History Confirmed 04/07/17] PMH/Surg Hx/FS Hx/Imm Hx Previously Healthy: Yes Endocrine/Hematology History: Denies: Hx Diabetes Cardiovascular History: Reports: Hx Hypertension - on meds - metoprolol 100mg AM , 50mg PM, lisinopril Denies: Hx Pacemaker/ICD Respiratory History: Denies: Hx Asthma, Hx Chronic Obstructive Pulmonary Disease (COPD), Hx Pneumonia Psychiatric History: Reports: Hx Depression, Hx Substance Abuse - ETOH Denies: Hx Panic Disorder - Surgical History Surgery Procedure, Year, and Place: rt hand cyst removal as a child; laceration repair rt forearm - Immunization History Hx Pertussis Vaccination: No Immunizations Up to Date: Unable to Obtain/Confirm Infectious Disease History: No Infectious Disease History: Denies: Traveled Outside the [place] in Last 30 Days - Family History Known Family History: Positive: Hypertension, Diabetes - Social History Occupation: Unemployed Lives: Alone Alcohol Use: Daily Alcohol Amount: "beer and vodka" almost daily Hx Substance Use: Yes Substance Use Type: Reports: None Substance Use Comment - Amount & Last Used: rare Hx Tobacco Use: Yes Smoking Status (MU): Heavy Every Day Tobacco Smoker Type: Cigarettes Review of Systems Positive: Fatigue. Negative: Fever, Chills, Skin Diaphoresis Positive: Erythema. Negative: Photophobia, Blurred Vision Negative: Epistaxis, Dental Pain Negative: Palpitations, Chest Pain Negative: Shortness Of Breath Gastrointestinal: Negative Negative: Abdominal Pain, Vomiting, Diarrhea Positive: no symptoms reported, see HPI Musculoskeletal: Negative Positive: Weakness Psychological: Normal All Other Systems Reviewed And Are Negative: Yes Physical Exam Triage Information Reviewed: Yes Vital Signs On Initial Exam: Initial Vitals Temp Pulse Resp BP Pulse Ox 98.8 F 81 18 104/70 97 04/07/17 15:50 04/07/17 15:50 04/07/17 15:50 04/07/17 15:50 04/07/17 15:50 Vital Signs Reviewed: Yes Appearance: Positive: Ill-Appearing, Thin, Cachectic Skin: Positive: Warm, Skin Color Reflects Adequate Perfusion Head/Face: Positive: Normal Head/Face Inspection Eyes: Positive: EOMI, CACHORRO, Conjunctiva Inflammed Neck: Positive: Supple, No Lymphadenopathy Respiratory/Lung Sounds: Positive: Clear to Auscultation, Breath Sounds Present Cardiovascular: Positive: Normal, RRR, Pulses are Symmetrical in both Upper and Lower Extremities Musculoskeletal: Positive: Normal, Strength/ROM Intact Neurological: Positive: Sensory/Motor Intact, Speech Normal Psychiatric: Positive: Normal AVPU Assessment: Alert - Tao Coma Scale Coma Scale Total: 15 Diagnostics - Vital Signs Vital Signs Temp Pulse Resp BP Pulse Ox 04/07/17 15:50 98.8 F 81 18 104/70 97 - Laboratory Result Diagrams: 04/07/17 20:10 04/07/17 20:10 Lab Statement: Any lab studies that have been ordered have been reviewed, and results considered in the medical decision making process. Course/Dx - Course Course Of Treatment: Patient evaluated for ETOH abuse. Labs not drawn. Patient is given a sandwhich and wants to go home. Slept for 3 hours. Feels improved. [employer] cab called and is OK for discharge. VS stable and gait normal. He is given 3L fluid bolus with improvement to 100/65. He has eaten 3 sandwhiches and has had PO fluids. He is ambulating well. He is given ferous sulfate in the ED and encouraged to begin taking iron supplements at home d/t low H/H. He is feeling better and is OK with discharge. - Diagnoses Differential Diagnosis/HQI/PQRI: Positive: Alcohol Abuse, Alcohol Withdrawal Provider Diagnoses: ETOH abuse Discharge - Discharge Plan Condition: Stable Disposition: HOME Patient Education Materials: Hypotension (ED) Referrals: Andrey Crespo MD [Primary Care Provider] - Additional Instructions: Follow up with PCP
[2017-04-07] MEDS ORDERED: NS 0.9% 1000 ML* 1,000 ML IV ONE ×2 (18:46→21:49)
[2017-04-07] MEDS ORDERED: NS 0.9% 1000 ML* 2,000 ML IV ONE (18:53)
[2017-04-07 20:35] LABS: Hematocrit 33 % (42-52); Hemoglobin 11.4 g/dl (14.0-18.0); Mean Corpuscular HGB Conc 34 g/dl (31-36); Mean Corpuscular Hemoglobin 35 pg (27-31); Mean Corpuscular Volume 104 fL (80-94); Mean Platelet Volume 7 um3 (7.4-10.4); Red Blood Count 3.22 10^6/ul (4.0-5.4); Red Cell Distribution Width 14 % (10.5-15); White Blood Count 5.3 10^3/ul (3.5-10.8)
[2017-04-07 20:47] LABS: Albumin 3.8 g/dL (3.2-5.2); BUN/Creatinine Ratio 12.6 (8-20); Calcium 8.1 mg/dL (8.6-10.3); EGFR African American 95.1 (>60); EGFR Non-African American 73.9 (>60); Globulin 2.5 g/dL (2-4); Potassium 3.3 mmol/L (3.5-5.0); Total Bilirubin 0.3 mg/dL (0.2-1.0); Total Protein 6.3 g/dL (6.4-8.9)
[2017-04-07 20:51] LABS: Benzodiazepine Urine Screen None Detected (None Detect)
[2017-04-07] MEDS ORDERED: Ferrous Sulfate TAB* 325 MG PO ONE (21:48)
[2017-04-07 23:12] VITALS: BP 119/90
== END 2017-04-07 23:23 | disposition home or self-care (01) ==
LOC: ED 15:31
DX: F10.129 Alcohol abuse with intoxication, unspecified (principal); I10 Essential (primary) hypertension; F32.9 Major depressive disorder, single episode, unspecified; F17.210 Nicotine dependence, cigarettes, uncomplicated
CPT/HCPCS: 36415; 80053; 80307; 83605; 84484; 85025; 96360; 96361; 99285; A9270-GY

== ENCOUNTER 2017-04-10 18:08 | Emergency (ER) | payer OTHER ==
--- NOTE | 2017-04-10 21:45 | ED ---
Malia Thakkar Abhishek, scribed for Te Will MD on 04/10/17 at 2026 . Complex/Multi-Sys Presentation - HPI Summary HPI Summary: This patient is a 61 year old MF presenting to [facility] with a chief complaint of weakness since 1812. Pt was brought in by EMS and stated he needs food and a drink as well as if he walked his legs would not carry him home. The patient rates the pain 0/10 in severity. Symptoms aggravated by nothing. Symptoms alleviated by nothing. Patient reports his legs dont work and is disorientated. PMHx reports depression, Hx of substance abuse (EtOH) denies HTN , Asthma, Panic disorder. FHx HTN and Diabetes. - History Of Current Complaint Chief Complaint: EDGeneral Time Seen by Provider: 04/10/17 18:44 Hx Obtained From: Patient Onset/Duration: Still Present Timing: Constant Severity Currently: None Aggravating Factor(s): nothing Alleviating Factor(s): nothing Associated Signs And Symptoms: Positive: Weakness - pt states his "legs dont work, Other - disorientation - Allergies/Home Medications Allergies/Adverse Reactions: Allergies Allergy/AdvReac Type Severity Reaction Status Date / Time No Known Allergies Allergy Verified 03/15/17 22:45 PMH/Surg Hx/FS Hx/Imm Hx Endocrine/Hematology History: Denies: Hx Diabetes Cardiovascular History: Reports: Hx Hypertension - on meds - metoprolol 100mg AM , 50mg PM, lisinopril Denies: Hx Pacemaker/ICD Respiratory History: Denies: Hx Asthma, Hx Chronic Obstructive Pulmonary Disease (COPD), Hx Pneumonia Psychiatric History: Reports: Hx Depression, Hx Substance Abuse - ETOH Denies: Hx Panic Disorder - Surgical History Surgery Procedure, Year, and Place: rt hand cyst removal as a child; laceration repair rt forearm - Immunization History Immunizations Up to Date: Yes Infectious Disease History: Yes Infectious Disease History: Denies: Traveled Outside the [place] in Last 30 Days - Family History Known Family History: Positive: Hypertension, Diabetes - Social History Alcohol Use: Daily Alcohol Amount: "beer and vodka" almost daily Hx Substance Use: Yes Substance Use Type: Reports: None Substance Use Comment - Amount & Last Used: rare Hx Tobacco Use: Yes Smoking Status (MU): Heavy Every Day Tobacco Smoker Type: Cigarettes Review of Systems Constitutional: Negative Eyes: Negative ENT: Negative Cardiovascular: Negative Respiratory: Negative Gastrointestinal: Negative Genitourinary: Negative Musculoskeletal: Negative Skin: Negative Neurological: Other - disorientation Positive: Weakness - pt states his "legs dont work Psychological: Normal All Other Systems Reviewed And Are Negative: Yes Physical Exam - Summary Physical Exam Summary: Appearance: Well-appearing, no pain distress IF BMI > 30 = obese Skin: Warm, dry, color reflects adequate perfusion Head/face: Nml head/face Eyes: Nml eyes ENT: Nml ENT Neck: Supple, non-tender Respiratory: CTA, breath sound present Cardiovascular: RRR Abdomen: Abd soft, non-tender, Bowel: Bowel sounds + Musculoskeletal: Nml musculoskeletal Neurological: Nml neuro (unless it is a neuro Pt, then click the first 4) Psychiatric: Nml psychiatric, affect/mood appropriate Triage Information Reviewed: Yes Vital Signs On Initial Exam: Initial Vitals Temp Pulse Resp BP Pulse Ox 98.5 F 86 18 106/78 100 04/10/17 18:12 04/10/17 18:12 04/10/17 18:12 04/10/17 18:12 04/10/17 18:12 Vital Signs Reviewed: Yes - [place] Coma Scale Coma Scale Total: 15 Diagnostics - Vital Signs Vital Signs Temp Pulse Resp BP Pulse Ox 04/10/17 18:12 98.5 F 86 18 106/78 100 - Laboratory Lab Statement: Any lab studies that have been ordered have been reviewed, and results considered in the medical decision making process. Complex Multi-Symp Course/Dx Course Of Treatment: Mr. Randall was a little intixicated and tried to get the ambulance to take him home, He had some food and we watched him awhile. He was clinically sober and went home. - Diagnoses Provider Diagnoses: Alcohol intoxication Discharge - Discharge Plan Condition: Stable Disposition: HOME Patient Education Materials: Alcohol Intoxication (ED) Referrals: Andrey Crespo MD [Primary Care Provider] - The documentation as recorded by the Malia oro Abhishek accurately reflects the service I personally performed and the decisions made by me, Te Will MD.
[2017-04-10 21:55] VITALS: BP 93/63
== END 2017-04-10 21:54 | disposition home or self-care (01) ==
LOC: ED 18:08
DX: F10.129 Alcohol abuse with intoxication, unspecified (principal); I10 Essential (primary) hypertension; F32.9 Major depressive disorder, single episode, unspecified; F17.210 Nicotine dependence, cigarettes, uncomplicated
CPT/HCPCS: 99282

== ENCOUNTER → 2017-05-07 17:57 | Emergency (ER) | payer OTHER ==
[2017-05-07 20:46] VITALS: BP 96/67
--- NOTE | 2017-05-17 10:42 | ED ---
Mahnaz Thakkar Emily, scribed for Keron Keating MD on 05/07/17 at 1957 . Complex/Multi-Sys Presentation - HPI Summary HPI Summary: This patient is a 61 year old M BIBA to [facility] with a chief complaint of inability to walk that began earlier today. The patient rates the pain 0/10 in severity. Symptoms aggravated by nothing. Symptoms alleviated by nothing. Patient reports inability to talk and ear problems. Patient denies vomiting, diarrhea, and chest pain. Pt was uncooperative for history, difficult to obtain straight story. Medications reviewed this visit. - History Of Current Complaint Chief Complaint: EDGeneral Time Seen by Provider: 05/07/17 19:06 Hx Obtained From: Patient Onset/Duration: Sudden Onset, Lasting Hours, Still Present Timing: Constant Severity Currently: Mild Severity Initially: Mild Associated Signs And Symptoms: Positive: Other - Positive inability to talk and ear problems. Negative vomiting, diarrhea, and chest pain - Allergies/Home Medications Allergies/Adverse Reactions: Allergies Allergy/AdvReac Type Severity Reaction Status Date / Time No Known Allergies Allergy Verified 03/15/17 22:45 PMH/Surg Hx/FS Hx/Imm Hx Previously Healthy: No Endocrine/Hematology History: Denies: Hx Diabetes Cardiovascular History: Reports: Hx Hypertension - on meds - metoprolol 100mg AM , 50mg PM, lisinopril Denies: Hx Pacemaker/ICD Respiratory History: Denies: Hx Asthma, Hx Chronic Obstructive Pulmonary Disease (COPD), Hx Pneumonia Psychiatric History: Reports: Hx Depression, Hx Substance Abuse - ETOH Denies: Hx Panic Disorder - Surgical History Surgery Procedure, Year, and Place: rt hand cyst removal as a child; laceration repair rt forearm Infectious Disease History: No Infectious Disease History: Denies: Traveled Outside the [place] in Last 30 Days - Family History Known Family History: Positive: Hypertension, Diabetes - Social History Occupation: Unemployed Lives: Alone Alcohol Use: Daily Alcohol Amount: "beer and vodka" almost daily Hx Substance Use: Yes Substance Use Type: Reports: None Substance Use Comment - Amount & Last Used: rare Hx Tobacco Use: Yes Smoking Status (MU): Heavy Every Day Tobacco Smoker Type: Cigarettes Review of Systems ENT: Other - Positive ear problems Negative: Chest Pain Negative: Vomiting, Diarrhea Positive: Other - Positive inability to walk Neurological: Other - Positive inability to talk All Other Systems Reviewed And Are Negative: Yes Physical Exam - Summary Physical Exam Summary: Appearance: Pt appears inebriated. Pt is sluring speech. Pt is behaving in his usual manner Skin: Warm, Dry, No rash Eyes: Normal, PERRL, EOMI, sclera anicteric ENT: Normal Neck: Supple, nontender Respiratory: Clear to auscultation Cardiovascular: S1, S2, no murmur, no rub, no gallop Abdomen: Soft, nontender, no organomegaly Bowel sounds: Present Musculoskeletal: Normal, Strength/ROM Intact, no edema, pulses symmetrical Neurological: Normal, A&Ox3, cranial nerves 2-12 wnl, follows commands, sensation intact to pin and light touch. Pt able to ambulate with a steady gate. Psychiatric: affect normal, behavior appropriate, dressed appropriately, judgment intact Triage Information Reviewed: Yes Vital Signs On Initial Exam: Initial Vitals Temp Pulse Resp BP Pulse Ox 98.4 F 84 16 96/77 97 05/07/17 18:01 05/07/17 18:01 05/07/17 18:01 05/07/17 18:01 05/07/17 18:01 Vital Signs Reviewed: Yes Diagnostics - Vital Signs Vital Signs Temp Pulse Resp BP Pulse Ox 05/07/17 19:00 94 88/66 93 05/07/17 18:46 94/75 05/07/17 18:39 89/71 05/07/17 18:30 74/46 05/07/17 18:13 86 100 05/07/17 18:01 98.4 F 84 16 96/77 97 - Laboratory Lab Statement: Any lab studies that have been ordered have been reviewed, and results considered in the medical decision making process. Complex Multi-Symp Course/Dx Assessment/Plan: This patient is a 61 year old M BIBA to [facility] with a chief complaint of inability to walk that began earlier today. The patient rates the pain 0/10 in severity. Symptoms aggravated by nothing. Symptoms alleviated by nothing. Patient reports inability to talk and ear problems. Patient denies vomiting, diarrhea, and chest pain. Medications reviewed this visit. PMHx includes HTN, and ETOH abuse. Physical Exam Findings. Uncoorperative history, difficult to get straight story, appears inebriated, slurred speech. Pt is able to ambulate normally. Medical Decision Making. Impression: inebriation, improved sufficient to walk and return home. Behavior is in his usual manner. Discharge to home. Patient will be discharged with follow up from PCP. The patient is agreeable with this plan. - Diagnoses Provider Diagnoses: Alcohol intoxication Discharge - Discharge Plan Condition: Fair Disposition: HOME Discharge Disposition Comment: home Patient Education Materials: Alcohol Dependence (ED) Referrals: Andrey Crespo MD [Primary Care Provider] - Additional Instructions: abstinence The documentation as recorded by the Mahnaz oro Emily accurately reflects the service I personally performed and the decisions made by me, Keron Keating MD.
== END | disposition home or self-care (01) ==
LOC: ED 17:57
DX: F10.129 Alcohol abuse with intoxication, unspecified (principal); I10 Essential (primary) hypertension; F17.210 Nicotine dependence, cigarettes, uncomplicated; F32.9 Major depressive disorder, single episode, unspecified
CPT/HCPCS: 99282

== ENCOUNTER 2017-09-16 14:52 | Emergency (ER) | payer OTHER ==
--- NOTE | 2017-09-16 16:07 | ED ---
Kayode Thakkar Julia, scribed for Viky Weber MD on 09/16/17 at 1603 . Substance Abuse/Use - HPI Summary HPI Summary: This patient is a 62 year old M GREGORY, 2208, to [facility] because he was found passed out in a park from etoh intoxication. Patient was asleep upon entering room. When asked if he drank any alcohol today he states I took a sip. Patient requests food and repeats I love you. Pt without any complaints of pain. Pt denies acosta, vision changes. Denies cp, sob, abd pain. No n/v/d. Pt denies other sx Pt denies medications - History Of Current Complaint Chief Complaint: EDGeneral Stated Complaint: 2208 Time Seen by Provider: 09/16/17 15:02 Hx Obtained From: Patient Overdose Characteristics: Oral Aggravating Factor(s): Nothing Alleviating Factor(s): Nothing Associated Signs And Symptoms: Negative - Allergies/Home Medications Allergies/Adverse Reactions: Allergies Allergy/AdvReac Type Severity Reaction Status Date / Time No Known Allergies Allergy Verified 03/15/17 22:45 Home Medications: Home Medications Lisinopril TAB* [Prinivil TAB*] 5 mg PO DAILY 09/16/17 [History Confirmed ] Thiamine TAB* [Vitamin B-1 TAB*] 100 mg PO DAILY 09/16/17 [History Confirmed ] Triamterene/HCTZ 37.5-25 MG* [Dyazide CAP*] 1 cap PO DAILY 09/16/17 [History Confirmed 09/16/17] Zolpidem TAB* [Ambien TAB*] 10 mg PO BEDTIME PRN 09/16/17 [History Confirmed ] PMH/Surg Hx/FS Hx/Imm Hx Previously Healthy: Yes Endocrine/Hematology History: Denies: Hx Diabetes Cardiovascular History: Reports: Hx Hypertension - on meds - metoprolol 100mg AM , 50mg PM, lisinopril Denies: Hx Pacemaker/ICD Respiratory History: Denies: Hx Asthma, Hx Chronic Obstructive Pulmonary Disease (COPD), Hx Pneumonia Psychiatric History: Reports: Hx Depression, Hx Substance Abuse - ETOH Denies: Hx Panic Disorder - Surgical History Surgery Procedure, Year, and Place: rt hand cyst removal as a child; laceration repair rt forearm Infectious Disease History: No Infectious Disease History: Denies: Traveled Outside the [place] in Last 30 Days - Family History Known Family History: Positive: Hypertension, Diabetes - Social History Occupation: Unemployed Lives: Alone Alcohol Use: Daily Alcohol Amount: "beer and vodka" almost daily Hx Substance Use: Yes Substance Use Type: Reports: None Substance Use Comment - Amount & Last Used: rare Hx Tobacco Use: Yes Smoking Status (MU): Heavy Every Day Tobacco Smoker Type: Cigarettes Review of Systems Constitutional: Negative Positive: Other - etoh intoxication All Other Systems Reviewed And Are Negative: Yes Physical Exam Triage Information Reviewed: Yes Vital Signs On Initial Exam: Initial Vitals Temp Pulse Resp BP Pulse Ox 98.5 F 78 20 96/71 96 09/16/17 14:58 09/16/17 14:58 09/16/17 14:58 09/16/17 14:58 09/16/17 14:58 Vital Signs Reviewed: Yes Appearance: Positive: Well-Appearing - sleeping, easily aroused to voice, No Pain Distress, Well-Nourished Skin: Positive: Warm, Skin Color Reflects Adequate Perfusion, Dry Head/Face: Positive: Normal Head/Face Inspection Eyes: Positive: Normal, EOMI, CACHORRO, Conjunctiva Inflammed ENT: Positive: Normal ENT inspection, Hearing grossly normal, Pharynx normal Neck: Positive: Supple, Nontender, No Lymphadenopathy Respiratory/Lung Sounds: Positive: Clear to Auscultation, Breath Sounds Present , Decreased Breath Sounds Cardiovascular: Positive: Normal, RRR, Pulses are Symmetrical in both Upper and Lower Extremities. Negative: Murmur Abdomen Description: Positive: Nontender, No Organomegaly, Soft Bowel Sounds: Positive: Present Musculoskeletal: Positive: Other - + tone, movement of upper ext Pt noted to inner layer scrubber tender room without difficulty or discomfort Neurological: Positive: Normal, Sensory/Motor Intact, Alert, Oriented to Person Place, Time Psychiatric: Positive: Normal AVPU Assessment: Alert - [place] Coma Scale Best Eye Response: 4 - Spontaneous Best Motor Response: 6 - Obeys Commands Best Verbal Response: 4 - Confused Coma Scale Total: 14 Diagnostics - Vital Signs Vital Signs Temp Pulse Resp BP Pulse Ox 09/16/17 15:30 93/72 09/16/17 15:27 98 100 09/16/17 15:02 99/88 09/16/17 15:01 79 96 09/16/17 15:00 09/16/17 14:58 98.5 F 78 20 96 - Laboratory Lab Statement: Any lab studies that have been ordered have been reviewed, and results considered in the medical decision making process. Re-Evaluation - Re-Evaluation Second Eval Re-Evaluation Time: 18:45 Comment: Pt alert and oriented to name and place. Pt + po, ambulatory without difficulty. will /c home by cab Course/Dx - Course Assessment/Plan: Pt presents by EMS after found sleeping outside. + ETOH intox. Pt without any complaints. pt with mild hypotension - pt with water. Pt taking po. will continue to monitor - Diagnoses Provider Diagnoses: Intoxication Discharge - Sign-Out/Discharge Documenting (check all that apply): Sign-Out Patient Signing out patient TO: Robin Judge - pending etoh metabolism - Discharge Plan Condition: Stable Disposition: HOME Patient Education Materials: Alcohol Intoxication (ED), Alcohol Use Disorder ( ED) Referrals: Andrey Crespo MD [Primary Care Provider] - - Billing Disposition and Condition Condition: STABLE Disposition: HOME The documentation as recorded by the Kayode oro Julia accurately reflects the service I personally performed and the decisions made by Gus barrientos Laura, MD.
[2017-09-16 19:42] VITALS: BP 94/69
== END 2017-09-16 19:42 | disposition home or self-care (01) ==
LOC: ED 14:52
DX: F10.129 Alcohol abuse with intoxication, unspecified (principal); F17.210 Nicotine dependence, cigarettes, uncomplicated
CPT/HCPCS: 99283

== ENCOUNTER 2018-05-05 21:23 | Emergency (ER) | payer OTHER ==
--- NOTE | 2018-05-06 01:54 | ED ---
Substance Abuse/Use - HPI Summary HPI Summary: Patient is a 62-year-old male brought in by ambulance with alcohol intoxication. He is a 9, he was found passed out. He has been seen in the ED several times for same. Patient is alert and cooperative. When asked if he drank any alcohol today, he states "I had some." He is unable to quantify this. He denies any chest pain, shortness of breath, abdominal pain. Denies any nausea, vomiting, diarrhea, constipation. Denies any other symptoms at this time. He is requesting food on arrival. - History Of Current Complaint Chief Complaint: EDSubstanceAbuse Stated Complaint: 2208 Time Seen by Provider: 05/05/18 21:30 Hx Obtained From: Patient Ingestion History: Type/Name Of Drug Overdose Characteristics: Oral Timing Of Abuse: Daily Severity Initially: Moderate Severity Currently: Moderate Aggravating Factor(s): Nothing Alleviating Factor(s): Nothing Associated Signs And Symptoms: Negative - Risk Factor(s) Completed Suicide Risk Factors: Negative - Allergies/Home Medications Allergies/Adverse Reactions: Allergies Allergy/AdvReac Type Severity Reaction Status Date / Time No Known Allergies Allergy Verified 03/15/17 22:45 PMH/Surg Hx/FS Hx/Imm Hx Previously Healthy: Yes Endocrine/Hematology History: Denies: Hx Diabetes Cardiovascular History: Reports: Hx Hypertension - on meds - metoprolol 100mg AM , 50mg PM, lisinopril Denies: Hx Pacemaker/ICD Respiratory History: Denies: Hx Asthma, Hx Chronic Obstructive Pulmonary Disease (COPD), Hx Pneumonia Psychiatric History: Reports: Hx Depression, Hx Substance Abuse - ETOH Denies: Hx Panic Disorder - Surgical History Surgery Procedure, Year, and Place: rt hand cyst removal as a child; laceration repair rt forearm - Immunization History Hx Pertussis Vaccination: No Immunizations Up to Date: Yes Infectious Disease History: No Infectious Disease History: Denies: Traveled Outside the [place] in Last 30 Days - Family History Known Family History: Positive: Hypertension, Diabetes - Social History Occupation: Unemployed Lives: With Family Alcohol Use: Daily Alcohol Amount: "beer and vodka" almost daily Hx Substance Use: Yes Substance Use Type: Reports: None Substance Use Comment - Amount & Last Used: rare Hx Tobacco Use: Yes Smoking Status (MU): Heavy Every Day Tobacco Smoker Type: Cigarettes Review of Systems Constitutional: Negative Negative: Fever, Chills, Fatigue, Skin Diaphoresis Negative: Palpitations, Chest Pain Negative: Shortness Of Breath, Cough Genitourinary: Negative Positive: no symptoms reported, see HPI Negative: Arthralgia, Myalgia Skin: Negative Neurological: Negative All Other Systems Reviewed And Are Negative: Yes Physical Exam Triage Information Reviewed: Yes Vital Signs On Initial Exam: Initial Vitals Temp Pulse Resp BP Pulse Ox 98.0 F 90 15 128/94 96 05/05/18 21:40 05/05/18 21:40 05/05/18 21:40 05/05/18 21:40 05/05/18 21:40 Vital Signs Reviewed: Yes Completion Of Physical Exam Limited Due To: Altered Mental Status Appearance: Positive: Well-Nourished Skin: Positive: Skin Color Reflects Adequate Perfusion Head/Face: Positive: Normal Head/Face Inspection Eyes: Positive: CACHORRO, Conjunctiva Clear Neck: Positive: Supple, No Lymphadenopathy Respiratory/Lung Sounds: Positive: Clear to Auscultation, Breath Sounds Present Cardiovascular: Positive: Normal, Pulses are Symmetrical in both Upper and Lower Extremities Neurological: Positive: Sensory/Motor Intact, Alert, Oriented to Person Place, Time, Speech Normal Diagnostics - Vital Signs Vital Signs Temp Pulse Resp BP Pulse Ox 05/05/18 23:42 98.3 F 90 15 109/86 96 05/05/18 21:40 98.0 F 90 15 128/94 96 - Laboratory Lab Statement: Any lab studies that have been ordered have been reviewed, and results considered in the medical decision making process. Course/Dx - Course Course Of Treatment: During the course of treatment, the patient is evaluated for alcohol intoxication. There is alcohol smell coming from the patient. He states he drinks some today. He denies any drug use. He is requesting further arrival. He denies any pain, falls or LOC. - Diagnoses Differential Diagnosis/HQI/PQRI: Positive: Alcohol Abuse Provider Diagnoses: Alcohol intoxication Discharge - Sign-Out/Discharge Documenting (check all that apply): Sign-Out Patient Signing out patient TO: Constance Nevarez - Signed out to Dr. Nevarez pending sobriety - Discharge Plan Condition: Stable Referrals: Andrey Crespo MD [Primary Care Provider] - - Billing Disposition and Condition Condition: STABLE
[2018-05-06 06:28] VITALS: BP 115/86
--- NOTE | 2018-05-06 06:30 | ED ---
Progress - Progress Note Progress Note: Patient was signed out from TREE Chacon upon shift change pending disposition. Re-Evaluation - Re-Evaluation First Eval Re-Evaluation Time: 06:28 Change: Improved Comment: Patient ambulated about the ED with no difficulties Course/Dx - Course Course Of Treatment: During the course of treatment, the patient is evaluated for alcohol intoxication. There is alcohol smell coming from the patient. He states he drinks some today. He denies any drug use. He is requesting further arrival. He denies any pain, falls or LOC. Patient will be discharged home with follow up from PCP. Patient is agreeable with this plan. - Diagnoses Provider Diagnoses: Alcohol intoxication Discharge - Sign-Out/Discharge Documenting (check all that apply): Patient Departure - Discharge home, Receiving Sign-Out Receiving patient FROM: Rebekah Chacon - Upon shift change pending disposition - Discharge Plan Condition: Stable Disposition: HOME Patient Education Materials: Alcohol Intoxication (ED) Referrals: Andrey Crespo MD [Primary Care Provider] - 3 Days Additional Instructions: RETURN TO THE EMERGENCY DEPARTMENT FOR NEW OR WORSENING SYMPTOMS - Attestation Statements Document Initiated by Scribe: Yes Documenting Scribe: Brianda Joya Provider For Whom Scribe is Documenting (Include Credential): Dr. Constance Nevarez MD Scribe Attestation: I, Brianda Joya, scribed for Dr. Constance Nevarez MD on 05/06/18 at 0630.
== END 2018-05-06 06:45 | disposition home or self-care (01) ==
LOC: ED 21:23
DX: F10.129 Alcohol abuse with intoxication, unspecified (principal); F17.210 Nicotine dependence, cigarettes, uncomplicated; I10 Essential (primary) hypertension
CPT/HCPCS: 99282

== ENCOUNTER → 2018-07-16 18:20 | Emergency (ER) | payer OTHER ==
[~2018-07-16 18:20] MED LIST: Aspirin 81 mg CHEW TAB* 81 MG TAB.CHEW PO ONE; NS 0.9% 1000 ML* 1,000 ML IV ONE
--- NOTE | 2018-07-16 18:56 | ED ---
HPI Chest Pain - HPI Summary HPI Summary: A 62 y/o male brought in by ambulance presents to the ED c/o intermittent sharp chest pain. In the ED room, the patient has a pulse of 87 BPM, O2 saturation of 97%, respiratory rate of 16, and blood pressure of 129/98. Currently, the patient is in no pain distress. As per triage, "chest pain, no radiation". According to the patient, she has been experiencing chest for for the past hour. He stated that the chest pain is intermittent and each episodes lasts no longer than a couple seconds, but it intermittent comes back for a few seconds with sharp pains diffusely across his chest. Patient does not have CP with exertion. Patient has no PMHx of heart disease, PR, heart issues, DM, but does have HBP. SHx of no ETOH, no smoking, no drugs. No FHx of cardiac problems. - History of Current Complaint Chief Complaint: EDChestPainROMI Time Seen by Provider: 07/16/18 18:41 Hx Obtained From: Patient Onset/Duration: Started Hours Ago, Resolved Timing: Intermittent Current Severity: None Pain Intensity: 0 Pain Scale Used: 0-10 Numeric Chest Pain Location: Diffuse Chest Pain Radiates: No Character: Sharp/Stabbing Aggravating Factor(s): Nothing Alleviating Factor(s): Nothing Associated Signs and Symptoms: Positive: Negative - Additional Pertinent History Primary Care Physician: FREEMAN - Allergy/Home Medications Allergies/Adverse Reactions: Allergies Allergy/AdvReac Type Severity Reaction Status Date / Time No Known Allergies Allergy Verified 07/16/18 18:33 PMH/Surg Hx/FS Hx/Imm Hx Endocrine/Hematology History: Denies: Hx Diabetes Cardiovascular History: Reports: Hx Hypertension - on meds - metoprolol 100mg AM , 50mg PM, lisinopril Denies: Hx Pacemaker/ICD Respiratory History: Denies: Hx Asthma, Hx Chronic Obstructive Pulmonary Disease (COPD), Hx Pneumonia Psychiatric History: Reports: Hx Depression, Hx Substance Abuse - ETOH Denies: Hx Panic Disorder - Surgical History Surgery Procedure, Year, and Place: rt hand cyst removal as a child; laceration repair rt forearm Infectious Disease History: No Infectious Disease History: Denies: Traveled Outside the [place] in Last 30 Days - Family History Known Family History: Positive: Hypertension, Diabetes - Social History Alcohol Use: Daily Alcohol Amount: "beer and vodka" almost daily Hx Substance Use: Yes Substance Use Type: Reports: None Substance Use Comment - Amount & Last Used: rare Hx Tobacco Use: Yes Smoking Status (MU): Heavy Every Day Tobacco Smoker Type: Cigarettes Review of Systems Negative: Fever Positive: Chest Pain All Other Systems Reviewed And Are Negative: Yes Physical Exam - Summary Physical Exam Summary: Appearance: Well appearing, no pain distress Skin: warm, dry, reflects adequate perfusion Head/face: normal Eyes: EOMI, CACHORRO ENT: normal Neck: supple, non-tender Respiratory: CTA, breath sounds present Cardiovascular: RRR, pulses symmetrical Abdomen: non-tender, soft Musculoskeletal: normal, strength/ROM intact Neuro: normal, sensory motor intact, A&Ox3 Triage Information Reviewed: Yes Vital Signs On Initial Exam: Initial Vitals Temp Pulse Resp BP Pulse Ox 98.5 F 84 16 129/98 98 07/16/18 18:28 07/16/18 18:28 07/16/18 18:28 07/16/18 18:28 07/16/18 18:28 Vital Signs Reviewed: Yes Diagnostics - Vital Signs Vital Signs Temp Pulse Resp BP Pulse Ox 07/16/18 18:28 98.5 F 84 16 129/98 98 - Laboratory Result Diagrams: 07/16/18 18:23 07/16/18 18:23 Lab Statement: Any lab studies that have been ordered have been reviewed, and results considered in the medical decision making process. - Radiology CXR Radiology Interpretation Completed By: ED Physician Summary of Radiographic Findings: NEGATIVE. PENDING OFFICIAL REPORT. - EKG 1839 Cardiac Rate: NL - 80 BPM EKG Rhythm: Sinus Rhythm - 80 BPM Summary of EKG Findings: NO ACUTE CHANGES. Chest Pain Course/Dx - Course Course Of Treatment: A 62 y/o male brought in by ambulance presents to the ED c/ o intermittent sharp chest pain. According to the patient, she has been experiencing chest for for the past hour. He stated that the chest pain is intermittent and each episodes lasts no longer than a couple seconds, but it intermittent comes back for a few seconds with sharp pains diffusely across his chest. Physical examination was unremarkable. A CXR revealed to be negative. An EKG revealed NSR of 80 BPM, no acute changes. Hematology, coagulation, and Chemistry screens were done. No significant laboratory abnormalities were found except hyperglycemia of a value of 149 mg/dL. In the ED course, the patient received Aspirin and IV fluids. Patient will be discharged with a diagnosis of atypical chest pain, hyponatremia, and dehydration. Patient is to follow up with primary care provider for a stress test in 2-3 days. Patient is to return to ED for any new or worsening symptoms. Patient is agreeable with this plan. - Chest Pain Differential Diagnosis/HQI/PQRI: Angina, Chest Wall, Lower Respiratory Infection - Diagnoses Provider Diagnoses: Atypical chest pain, Hyponatremia, Dehydration Discharge - Sign-Out/Discharge Documenting (check all that apply): Patient Departure - DISCHARGE - Discharge Plan Condition: Stable Disposition: HOME Patient Education Materials: Chest Pain (ED), Dehydration (ED), Hyponatremia ( ED) Referrals: Andrey Crespo MD [Primary Care Provider] - 3 Days Additional Instructions: FOLLOW UP WITH PRIMARY CARE PROVIDER IN 2-3 DAYS FOR STRESS TEST. RETURN TO ED FOR ANY NEW OR WORSENING SYMPTOMS. - Billing Disposition and Condition Condition: STABLE Disposition: Home - Attestation Statements Document Initiated by Bhavya: Yes Documenting Scribe: Charles Márquez Provider For Whom Bhavya is Documenting (Include Credential): Rah Bill MD Scribe Attestation: Charles Thakkar scribed for Rah Bill MD on 07/16/18 at 2146. Scribe Documentation Reviewed: Yes Provider Attestation: The documentation as recorded by the Charles oro accurately reflects the service I personally performed and the decisions made by Rah barrientos MD Status of Scribe Document: Viewed
[2018-07-16 19:22] LABS: ABS Basophils 0 10^3/ul (0-0.2); ABS Eosinophils 0.1 10^3/ul (0-0.6); ABS Lymphocytes 1.4 10^3/ul (1.0-4.8); ABS Monocytes 0.7 10^3/ul (0-0.8); ABS Neutrophils 2.7 10^3/ul (1.5-7.7); ABS Nucleated RBC 0 10^3/ul; Eosinophil % 2.6 %; Hematocrit 37 % (42-52); Hemoglobin 12.9 g/dl (14.0-18.0); Lymphocyte % 28.2 %; Mean Corpuscular HGB Conc 35 g/dl (31-36); Mean Corpuscular Hemoglobin 34 pg (27-31); Mean Corpuscular Volume 100 fL (80-94); Nucleated Red Blood Cells % 0; Platelet Count 207 10^3/ul (150-450); Red Blood Count 3.75 10^6/ul (4.00-5.40); Red Cell Distribution Width 13 % (10.5-15); White Blood Count 5.1 10^3/ul (3.5-10.8)
[2018-07-16 19:35] LABS: Activated Partial Thrombo Time 24.8 seconds (26.0-36.3); INR 0.85 (0.77-1.02)
[2018-07-16 19:40] LABS: Albumin 4.7 g/dL (3.2-5.2); Albumin/Globulin Ratio 1.6 (1-3); BUN/Creatinine Ratio 30.3 (8-20); Calcium 9.3 mg/dL (8.6-10.3); EGFR Non-African American 60.6 (>60); Globulin 2.9 g/dL (2-4); Potassium 4.2 mmol/L (3.5-5.0); Total Protein 7.6 g/dL (6.4-8.9)
[2018-07-16 21:44] VITALS: BP 133/95
== END | disposition home or self-care (01) ==
LOC: ED 18:20
DX: R07.89 Other chest pain (principal); E87.1 Hypo-osmolality and hyponatremia; E86.0 Dehydration; F17.210 Nicotine dependence, cigarettes, uncomplicated
CPT/HCPCS: 36415; 71045; 80053; 84484; 85025; 85610; 85730; 93005; 99284

== ENCOUNTER 2019-03-18 21:40 | Emergency (ER) | payer OTHER ==
--- OUTSIDE RECORDS SUMMARY | 2019-03-18 22:24 | XMS REPORT | Continuity of Care Document ---
:1955 External Reference #:[id number] Author Name Tressa Liang M.D. (transmitted by agent of provider Ghassan Barron) Address [address] [place] [address] Care Team Providers Name Role Phone Andrey Crespo III, MD - Internal Care Team Information [place] [phone] Medicine Rosalie Rodrigues MD - Gastroenterology Care Team Information [place] Marco Antonio Arizmendi MD - Gastroenterology Care Team Information [place] Problems Active Problems Provider Date Essential hypertension Andrey Crespo M.D. Onset: 01/25/2018 Tobacco user Andrey Crespo M.D. Onset: 01/25/2018 Chronic depression Andrey Crespo M.D. Onset: 01/25/2018 Social History Type Date Description Comments Sex Unknown ETOH Use Currently consumes beer on weekends alcohol only per pt. Denies daily intake Tobacco Use Start: Unknown Patient is a current 1/2 ppd max; began smoker, smokes every age 27. around 1/4 day ppd as of 12/25/18 Recreational Drug Use Denies Drug Use Smoking Status Reviewed: 02/12/19 Patient is a current 1/2 ppd max; began smoker, smokes every age 27. around 1/4 day ppd as of 12/25/18 Exercise Type/Frequency Exercises sporadically Allergies, Adverse Reactions, Alerts Description No Known Drug Allergies Medications Active Medications SIG Qnty Indications Ordering Date Provider Atenolol 1 by mouth every 90tabs Andrey Ivey 01/13/2018 100mg Tablets eun Cerspo M.D. Atenolol 1 by mouth every 90tabs Andrey Ivey 01/13/2018 50mg Tablets evening Lionel Crespo Blood Pressure Kit (+) hypertension- I10 Andrey Ivey 09/05/2013 Digital for home bp Lionel Crespo Kit monitoring Bupropion HCL ER (XL) 1 by mouth every 90tabs Unknown day 300mg Tablets ER 24HR Vitamin B-1 take 1 tablet by 90tabs Andrey Ivey 100mg Tablets mouth every day Lionel Crespo Lisinopril take 1 tablet every 90tabs Andrey E. 5mg Tablets day Lionel Crespo Triamterene/Hydrochlor take one capsule 90caps Andrey E. othiazide every day Lionel Crespo 37.5-25mg Capsules Zolpidem at bedtime as Unknown needed Cholecalciferol 1000 unit Unknown Lovenox 1 injection Unknown 40mg/0.4ML subcutaneous every Solution 24 hours Multi Mineral/Vitamins Unknown Tablet Percocet 1 - 2 tabs by mouth Unknown 5-325mg Tablets every 4 - 6 hours as needed for pain. Senna Unknown Vitamin B12 Unknown Medications Administered in Office Medication SIG Qnty Indications Ordering Provider Date Records Fee Karla Cartwright M.D. 12/15/2018 Injection Immunizations CPT Code Status Date Vaccine Lot # [id number] Given 04/06/2016 Influ Virus Vaccine, Quadrivalent, Split Virus, [place] [id number] [id number] Given 05/15/2014 Flu Vaccine Split Virus Preservative Free For [id number] Indiv 3Yr Older 07758 Given 09/05/2013 Pneumonia Vaccine [id number] Given 09/05/2013 Tdap - Tetanus/Diptheria/Acellular Pertussis [id number] Vital Signs Date Vital Result Comment 02/12/2019 10:51am Height 72 inches 6'0" Weight 160.00 lb BP Systolic 140 mmHg BP Diastolic 80 mmHg Body Temperature 97.4 F Pain Level 5 BMI (Body Mass Index) 21.7 kg/m2 12/25/2018 12:59pm Height 71 inches 5'11" Weight 150.00 lb Heart Rate 78 /min BP Systolic Sitting 109 mmHg BP Diastolic Sitting 75 mmHg O2 % BldC Oximetry 99 % BMI (Body Mass Index) 20.9 kg/m2 Results Test Date Facility Test Result H/L Range Note CBC Auto Diff 01/27/2019 [facility] White Blood 11.3 10^3/uL High 3.5-10.8 [place] [address] [phone] Red Blood Count 4.19 10^6/uL Normal 4.18-5.48 Hemoglobin 13.9 g/dL Low 14.0-18.0 Hematocrit 40 % Low 42-52 Mean Corpuscular Volume 97 fL High 80-94 Mean Corpuscular Hemoglobin 33 pg High 27-31 Mean Corpuscular HGB Conc 34 g/dL Normal 31-36 Red Cell Distribution Width 13 % Normal 10-15 Platelet Count 219 10^3/uL Normal 150-450 Mean Platelet Volume 7.5 fL Normal 7.4-10.4 Abs Neutrophils 8.3 10^3/uL High 1.5-7.7 Abs Lymphocytes 2.0 10^3/uL Normal 1.0-4.8 Abs Monocytes 0.9 10^3/uL High 0-0.8 Abs Eosinophils 0.0 10^3/uL Normal 0-0.6 Abs Basophils 0.0 10^3/uL Normal 0-0.2 Abs Nucleated RBC 0.0 10^3/uL Granulocyte % 73.4 % Lymphocyte % 17.8 % Monocyte % 8.4 % Eosinophil % 0.2 % Basophil % 0.2 % Nucleated Red Blood Cells % 0.1 Type & Screen 01/27/2019 [facility] Patient [place] [address] [phone] Antibody Screen NEGATIVE Inr/Protime 01/27/2019 [facility] Inr 1.02 Normal 0.82-1.09 1 [place] [address] [phone] Comp Metabolic 01/27/2019 [facility] Sodium 132 mmol/L Low 135 -145 [place] [address] [phone] Potassium 3.7 mmol/L Normal 3.5-5.0 Chloride 96 mmol/L Low 101-111 Co2 Carbon Dioxide 22 mmol/L Normal 22-32 Anion Gap 14 mmol/L High 2-11 Glucose 98 mg/dL Normal 70-100 Blood Urea Nitrogen 15 mg/dL Normal 6-24 Creatinine 1.08 mg/dL Normal 0.67-1.17 BUN/Creatinine Ratio 13.9 Normal 8-20 Calcium 9.7 mg/dL Normal 8.6-10.3 Total Protein 8.0 g/dL Normal 6.4-8.9 Albumin 4.8 g/dL Normal 3.2-5.2 Globulin 3.2 g/dL Normal 2-4 Albumin/Globulin Ratio 1.5 Normal 1-3 Total Bilirubin 0.80 mg/dL Normal 0.2-1.0 Alkaline Phosphatase 74 U/L Normal 34-104 Alt 11 U/L Normal 7-52 Ast 16 U/L Normal 13-39 Egfr Non- 69.5 >60 Egfr 84.1 >60 2 Laboratory test 01/27/2019 [facility] Creatine 161 U/L Normal 10-[address] Kinase(CK) [place] [address] [phone] Comp Metabolic 12/25/2018 [facility] Sodium 137 Normal 135- [address] mmol/[place] [address] [phone] Potassium 3.8 mmol/L Normal 3.5-5.0 Chloride 99 mmol/L Low 101-111 Co2 Carbon Dioxide 28 mmol/L Normal 22-32 Anion Gap 10 mmol/L Normal 2-11 Glucose 79 mg/dL Normal 70-100 Blood Urea Nitrogen 27 mg/dL High 6-24 Creatinine 1.30 mg/dL High 0.67-1.17 BUN/Creatinine Ratio 20.8 High 8-20 Calcium 10.2 mg/dL Normal 8.6-10.3 Total Protein 7.5 g/dL Normal 6.4-8.9 Albumin 4.6 g/dL Normal 3.2-5.2 Globulin 2.9 g/dL Normal 2-4 Albumin/Globulin Ratio 1.6 Normal 1-3 Total Bilirubin 1.30 mg/dL High 0.2-1.0 Alkaline Phosphatase 72 U/L Normal 34-104 Alt 11 U/L Normal 7-52 Ast 17 U/L Normal 13-39 Egfr Non- 56.1 >60 Egfr 67.9 >60 3 Laboratory test 12/25/2018 [facility] PSA Screening 7.945 High 0-4.000 [address] ng/[place] [address] [phone] CBC Auto Diff 12/25/2018 [facility] White Blood 9.3 Normal 3.5 -10.[address] Count 10^3/[place] [address] [phone] Red Blood Count 4.51 10^6/uL Normal 4.18-5.48 Hemoglobin 15.3 g/dL Normal 14.0-18.0 Hematocrit 44 % Normal 42-52 Mean Corpuscular Volume 98 fL High 80-94 Mean Corpuscular Hemoglobin 34 pg High 27-31 Mean Corpuscular HGB Conc 35 g/dL Normal 31-36 Red Cell Distribution Width 13 % Normal 10-15 Platelet Count 218 10^3/uL Normal 150-450 Mean Platelet Volume 8.9 fL Normal 7.4-10.4 Abs Neutrophils 6.1 10^3/uL Normal 1.5-7.7 Abs Lymphocytes 1.8 10^3/uL Normal 1.0-4.8 Abs Monocytes 1.2 10^3/uL High 0-0.8 Abs Eosinophils 0.1 10^3/uL Normal 0-0.6 Abs Basophils 0.0 10^3/uL Normal 0-0.2 Abs Nucleated RBC 0.0 10^3/uL Granulocyte % 65.7 % Lymphocyte % 19.4 % Monocyte % 13.2 % Eosinophil % 1.3 % Basophil % 0.4 % Nucleated Red Blood Cells % 0.1 Laboratory 12/25/2018 [facility] TSH (Thyroid 0.70 Normal 0.34 -5.60 test finding [address] Stim Horm) mcIU/mL [place], [place] [id number] [phone] 1 Standard intensity warfarin therapeutic range: 2.0-3.0 High intensity warfarin therapeutic range: 2.5-3.5 2 Because ethnic data is not always readily available, this report includes an eGFR for both -Americans and non- Americans. The National Kidney Disease Education Program (NKDEP) does not endorse the use of the MDRD equation for patients that are not between the ages of 18 and 70, are , have extremes of body size, muscle mass, or nutritional status, or are non- or non-. According to the National Kidney Foundation, irrespective of diagnosis, the stage of the disease is based on the level of kidney function: Stage Description GFR(mL/min/1.73 m(2)) 1 Kidney damage with normal or decreased GFR 90 2 Kidney damage with mild decrease in GFR 60-89 3 Moderate decrease in GFR 30-59 4 Severe decrease in GFR 15-29 5 Kidney failure <15 (or dialysis) 3 Because ethnic data is not always readily available, this report includes an eGFR for both -Americans and non- Americans. The National Kidney Disease Education Program (NKDEP) does not endorse the use of the MDRD equation for patients that are not between the ages of 18 and 70, are , have extremes of body size, muscle mass, or nutritional status, or are non- or non-. According to the National Kidney Foundation, irrespective of diagnosis, the stage of the disease is based on the level of kidney function: Stage Description GFR(mL/min/1.73 m(2)) 1 Kidney damage with normal or decreased GFR 90 2 Kidney damage with mild decrease in GFR 60-89 3 Moderate decrease in GFR 30-59 4 Severe decrease in GFR 15-29 5 Kidney failure <15 (or dialysis) 4 Serum levels of PSA measured using the [employer] D[employer] immunoassay should not be interpreted as absolute evidence of the presence or absence of disease. The PSA value should be used in conjunction with other pertinent clinical diagnostic procedures. The values obtained with different assay methods or kits cannot be used interchangeably. Procedures Date Code Description Status 01/28/2019 97878 ORIF Plate/Screw ([place] Interochanteric/Angy Or Sub Femoral Completed FX W.Gianni 01/28/2019 53062 ORIF Plate/Screw (TX Interochanteric/Angy Or Sub Femoral Completed FX W.Gianni [employer] Description No Information Available Encounters Type Date Location Provider Dx Diagnosis Office Visit 02/06/2019 [facility] S72.141A Displaced 10:35a Assfranklin britt D.O. intertrochanteric Hospitalists fracture of right femur, init D64.9 Anemia, unspecified I10 Essential (primary) hypertension E87.1 Hypo-osmolality and hyponatremia Z72.0 Tobacco use Z47.1 Aftercare following joint replacement surgery Z96.651 Presence of right artificial knee joint Office 02/05/2019 [facility] S72.141A Displaced Visit 10:34a franklin Rees M.D. intertrochanteric Hospitalists fracture of right femur, init I10 Essential (primary) hypertension E87.1 Hypo-osmolality and hyponatremia Z72.0 Tobacco use D64.9 Anemia, unspecified Z47.1 Aftercare following joint replacement surgery Z96.651 Presence of right artificial knee joint Office 02/04/2019 [facility] S72.141A Displaced Visit 10:34a franklin Rees M.D. intertrochanteric Hospitalists fracture of right femur, init I10 Essential (primary) hypertension E87.1 Hypo-osmolality and hyponatremia Z72.0 Tobacco use D64.9 Anemia, unspecified Z47.1 Aftercare following joint replacement surgery Z96.651 Presence of right artificial knee joint Office 02/03/2019 [facility] S72.141A Displaced Visit 10:34a franklin Rees M.D. intertrochanteric Hospitalists fracture of right femur, init I10 Essential (primary) hypertension E87.1 Hypo-osmolality and hyponatremia Z72.0 Tobacco use Z96.651 Presence of right artificial knee joint Office 02/02/2019 [facility] S72.141A Displaced Visit 10:33a franklin Rees M.D. intertrochanteric Hospitalists fracture of right femur, init I10 Essential (primary) hypertension E87.1 Hypo-osmolality and hyponatremia Z72.0 Tobacco use Z96.651 Presence of right artificial knee joint Office 02/01/2019 [facility] S72.141A Displaced Visit 10:33a [facility] of right femur, init I10 Essential (primary) hypertension E87.1 Hypo-osmolality and hyponatremia Z72.0 Tobacco use D51.9 Vitamin B12 deficiency anemia, unspecified Z96.651 Presence of right artificial knee joint Office 01/31/2019 [facility] S72.141A Displaced Visit 10:33a franklin Rees MD intertrochanteric Hospitalists fracture of right femur, init I10 Essential (primary) hypertension E87.1 Hypo-osmolality and hyponatremia Z72.0 Tobacco use Z96.651 Presence of right artificial knee joint Office 01/30/2019 [facility] S72.141A Displaced Visit 10:32a franklin Rees MD intertrochanteric Hospitalists fracture of right femur, init I10 Essential (primary) hypertension E87.1 Hypo-osmolality and hyponatremia Z72.0 Tobacco use Z96.651 Presence of right artificial knee joint Office 01/29/2019 [facility] S72.141A Displaced Visit 10:32a franklin Rees MD intertrochanteric Hospitalists fracture of right femur, init I10 Essential (primary) hypertension E87.1 Hypo-osmolality and hyponatremia Z72.0 Tobacco use Z96.651 Presence of right artificial knee joint Office Visit 01/28/2019 10:32a [facility] S72.91xA Unsp fracture franklin Rees M.D. of right Hospitalists femur, init for clos fx I10 Essential (primary) hypertension E87.1 Hypo-osmolality and hyponatremia Z72.0 Tobacco use Office Visit 01/27/2019 [facility] Lashawn Tatiana, S72.91xA Unsp fracture 10:24a franklin Rees M.D. 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 I10 Essential ( primary) Medicine - Darlyn Crespo M.D. hypertension R97.20 Elevated prostate specific antigen [PSA] F34.1 Dysthymic disorder Z12.11 Encounter for screening for malignant neoplasm of colon Assessments Date Code Description Provider 02/12/2019 S72.141D Displaced intertrochanteric fracture of Tressa Liang M.D. right femur, subsequent encounter for closed fracture with routine healing 02/11/2019 S72.141A Displaced intertrochanteric fracture of Sharita Delaney D.O. right femur, initial encounter for closed fracture 02/11/2019 D64.9 Anemia, unspecified Sharita Rhett, D.O. 02/11/2019 I10 Essential (primary) hypertension Sharita Rhett, D.O. 02/11/2019 E87.1 Hypo-osmolality and hyponatremia Sharita Rhett, D.O. 02/11/2019 Z72.0 Tobacco use Sharita Rhett, D.O. 02/06/2019 S72.141A Displaced intertrochanteric fracture of Sharita Hammondr, D.O. right femur, initial encounter for closed fracture 02/06/2019 D64.9 Anemia, unspecified Sharita Rhett, D.O. 02/06/2019 I10 Essential (primary) hypertension Sharita Rhett, D.O. 02/06/2019 E87.1 Hypo-osmolality and hyponatremia Sharita Rhett, D.O. 02/06/2019 Z72.0 Tobacco use Sharita Rhett, D.O. 02/06/2019 Z47.1 Aftercare following joint replacement Sharita Delaney D.O. surgery 02/06/2019 Z96.651 Presence of right artificial knee joint Sharita Delaney, D.O. 02/05/2019 S72.141A Displaced intertrochanteric fracture of Vance Harrington M.D. right femur, initial encounter for closed fracture 02/05/2019 I10 Essential (primary) hypertension Vance Harrington M.D. 02/05/2019 E87.1 Hypo-osmolality and hyponatremia Vance Harrington M.D. 02/05/2019 Z72.0 Tobacco use Vance Harrington M.D. 02/05/2019 D64.9 Anemia, unspecified Vance Harrington M.D. 02/05/2019 Z47.1 Aftercare following joint replacement Vance Harrington M.D. surgery 02/05/2019 Z96.651 Presence of right artificial knee joint Vance Harrington M.D. 02/04/2019 S72.141A Displaced intertrochanteric fracture of Vance Harrington M.D. right femur, initial encounter for closed fracture 02/04/2019 I10 Essential (primary) hypertension Vance Harrington M.D. 02/04/2019 Z98.890 Other specified postprocedural states Cedric Myers PA-C 02/04/2019 E87.1 Hypo-osmolality and hyponatremia Vance Harrington M.D. 02/04/2019 Z72.0 Tobacco use Vance Harrington M.D. 02/04/2019 D64.9 Anemia, unspecified Vance Harrington M.D. 02/04/2019 Z47.1 Aftercare following joint replacement Vance Harrington M.D. surgery 02/04/2019 Z96.651 Presence of right artificial knee joint Vance Harrington M.D. 02/03/2019 S72.141A Displaced intertrochanteric fracture of Vance Harrington M.D. right femur, initial encounter for closed fracture 02/03/2019 I10 Essential (primary) hypertension Vance Harrington M.D. 02/03/2019 E87.1 Hypo-osmolality and hyponatremia Vance Harrington M.D. 02/03/2019 Z72.0 Tobacco use Vance Harrington M.D. 02/03/2019 Z96.651 Presence of right artificial knee joint Vance Harrington M.D. 02/02/2019 S72.141A Displaced intertrochanteric fracture of Vance Harrington M.D. right femur, initial encounter for closed fracture 02/02/2019 Z98.890 Other specified postprocedural states PUMA Orozco 02/02/2019 I10 Essential (primary) hypertension Vance Harrintgon M.D. 02/02/2019 E87.1 Hypo-osmolality and hyponatremia Vance Harrington M.D. 02/02/2019 Z72.0 Tobacco use Vance Harrington M.D. 02/02/2019 Z96.651 Presence of right artificial knee joint Vance Harrington M.D. 02/01/2019 S72.141A Displaced intertrochanteric fracture of Sia Elliott MD right femur, initial encounter for closed fracture 02/01/2019 Z98.890 Other specified postprocedural states Sylvie Sparks PA-C 02/01/2019 I10 Essential (primary) hypertension Sia Elliott MD 02/01/2019 E87.1 Hypo-osmolality and hyponatremia Sia Elliott MD 02/01/2019 Z72.0 Tobacco use Sia Elliott MD 02/01/2019 D51.9 Vitamin B12 deficiency anemia, Sia Elliott MD unspecified 02/01/2019 Z96.651 Presence of right artificial knee joint Sia Elliott MD 01/31/2019 S72.141A Displaced intertrochanteric fracture of Sia Elliott MD right femur, initial encounter for closed fracture 01/31/2019 Z98.890 Other specified postprocedural states TREE Moscoso 01/31/2019 I10 Essential (primary) hypertension Sia Elliott MD 01/31/2019 E87.1 Hypo-osmolality and hyponatremia Sia Elliott MD 01/31/2019 Z72.0 Tobacco use Sia Elliott MD 01/31/2019 Z96.651 Presence of right artificial knee joint Sia Elliott MD 01/30/2019 S72.141A Displaced intertrochanteric fracture of Sia Elliott MD right femur, initial encounter for closed fracture 01/30/2019 Z98.890 Other specified postprocedural states TREE Moscoso 01/30/2019 I10 Essential (primary) hypertension Sia Elliott MD 01/30/2019 E87.1 Hypo-osmolality and hyponatremia Sia Elliott MD 01/30/2019 Z72.0 Tobacco use Sia Elliott MD 01/30/2019 Z96.651 Presence of right artificial knee joint Sia Elliott MD 01/29/2019 S72.141A Displaced intertrochanteric fracture of Sia Elliott MD right femur, initial encounter for closed fracture 01/29/2019 I10 Essential (primary) hypertension Sia Elliott MD 01/29/2019 Z98.890 Other specified postprocedural states TREE Moscoso 01/29/2019 E87.1 Hypo-osmolality and hyponatremia Sia Elliott MD 01/29/2019 Z72.0 Tobacco use Sia Elliott MD 01/29/2019 Z96.651 Presence of right artificial knee joint Sia Elliott MD 01/28/2019 S72.141A Displaced intertrochanteric fracture of TREE Vela right femur, initial encounter for closed fracture 01/28/2019 S72.141A Displaced intertrochanteric fracture of Tressa Liang M.D. right femur, initial encounter for closed fracture 01/28/2019 S72.91xA Unspecified fracture of right femur, Vance Harrington M.D. initial encounter for closed fracture 01/28/2019 I10 Essential (primary) hypertension Vance Harrington M.D. 01/28/2019 E87.1 Hypo-osmolality and hyponatremia Vance Harrington M.D. 01/28/2019 Z72.0 Tobacco use Vance Harrington M.D. 01/27/2019 S72.141A Displaced intertrochanteric fracture of Tressa Liang M.D. right femur, initial encounter for closed fracture 01/27/2019 S72.91xA Unspecified fracture of right femur, Lashawn Simpson M.D. initial encounter for closed fracture 01/27/2019 I10 Essential (primary) hypertension Lashawn Simpson M.D. 01/27/2019 F10.99 Alcohol use, unspecified with unspecified Lashawn Simpson M.D. alcohol-induced disorder 12/25/2018 I10 Essential (primary) hypertension Andrey Crespo M.D. 12/25/2018 R97.20 Elevated prostate specific antigen [PSA] Andrey Crespo M.D. 12/25/2018 F34.1 Dysthymic disorder Andrey Crespo M.D. 12/25/2018 Z12.11 Encounter for screening for malignant Andrey Crespo M.D. neoplasm of colon 12/15/2018 I63.9 Cerebral infarction, unspecified Karla Cartwright M.D. Plan of Treatment Future Appointment(s):03/12/2019 10:15 am - [facility] 1:20 pm - Andrey Crespo M.D. at [facility] Internal Medicine-Ierjqnhvb81/19/2019 - Tressa Liang M.D.S72.141D Displaced intertrochanteric fracture of right femur, subsequent encounter for closed fracture with routine healingNew Xrays:Hip Right 2 Views And Pelvis [id number], Ordered: 02/12/19Follow up:Follow up: 4 weeks Functional Status Description No Information Available Mental Status Description No Information Available Referrals Refer to Reason for Referral Status Appt Date Leonid Cheatham MD increasing PSA Created [address] [place] [address] [place] [address] [phone] Marco Antonio Arizmendi MD due for his initial colon exam Sent [address] [place] [address] [phone]
[2019-03-18] MEDS ORDERED: NS 0.9% 1000 ML** 2,000 ML IV ONE (22:35)
--- NOTE | 2019-03-18 22:37 | ED ---
Dizziness - HPI Summary HPI Summary: The patient is a 63 y/o M arriving by ambulance to [facility] with a chief complaint of dizziness tonight. He reports that he had been at rest and felt okay, but went to change the channel on the TV, and he had a sudden onset dizziness described as a near syncope. His symptoms are aggravated by movement and exertion and alleviated by rest. Currently, his symptoms are rated 6/10 in severity. He additionally c/o nausea and pain in the right hip, which is secondary to having surgery in January 2019, for which is receiving rehab treatment. PMHx: HTN, depression. Current every day smoker, daily EtOH, rare substance use. Medications reviewed. Allergies noted. - History Of Current Complaint Chief Complaint: EDDizziness Stated Complaint: DIZZY PER EMS Time Seen by Provider: 03/18/19 22:27 Hx Obtained From: Patient Onset/Duration: Still Present, Suddenly Timing: Hours Severity Initially: Moderate Severity Currently: Mild Character: Dizzy Aggravating Factor(s): Exertion Alleviating Factor(s): Rest Associated Signs And Symptoms: Positive: Nausea, Other: - right hip pain - Allergies/Home Medications Allergies/Adverse Reactions: Allergies Allergy/AdvReac Type Severity Reaction Status Date / Time No Known Allergies Allergy Verified 03/18/19 21:49 PMH/Surg Hx/FS Hx/Imm Hx Endocrine/Hematology History: Denies: Hx Diabetes Cardiovascular History: Reports: Hx Hypertension Denies: Hx Pacemaker/ICD Respiratory History: Denies: Hx Asthma, Hx Chronic Obstructive Pulmonary Disease (COPD), Hx Pneumonia Sensory History: Reports: Hx Contacts or Glasses Denies: Hx Hearing Aid Opthamlomology History: Reports: Hx Contacts or Glasses Psychiatric History: Reports: Hx Depression, Hx Substance Abuse - ETOH Denies: Hx Panic Disorder - Surgical History Surgery Procedure, Year, and Place: rt hand cyst removal as a child; laceration repair rt forearm Hx Anesthesia Reactions: No Infectious Disease History: No Infectious Disease History: Denies: Traveled Outside the [place] in Last 30 Days - Family History Known Family History: Positive: Hypertension, Diabetes - Social History Alcohol Use: Daily Alcohol Amount: "beer and vodka" almost daily Hx Substance Use: Yes Substance Use Type: Reports: Other - "rare" Substance Use Comment - Amount & Last Used: rare Hx Tobacco Use: Yes Smoking Status (MU): Heavy Every Day Tobacco Smoker Type: Cigarettes Review of Systems Positive: Other - right hip pain Neurological: Other - dizziness All Other Systems Reviewed And Are Negative: Yes Physical Exam - Summary Physical Exam Summary: Appearance: Well-appearing, Well-nourished, lying in bed comfortably Skin: Warm, dry, no obvious rash Eyes: sclera anicteric, no conjunctival pallor ENT: mucous membranes moist, pharynx appears normal Neck: Supple, nontender Respiratory: Clear to auscultation, no signs of respiratory distress Cardiovascular: Normal S1, S2. No murmurs. Normal distal pulses in tibial and radial bilaterally. Abdomen: Soft, nontender, normal active bowel sounds present Musculoskeletal: Normal, Strength/ROM Intact Neurological: A&Ox3, awake and alert, mentation is normal, speech is fluent and appropriate, GCS: 15 Psychiatric: affect is normal, does not appear anxious or depressed Triage Information Reviewed: Yes Vital Signs On Initial Exam: Initial Vitals Temp Pulse Resp BP Pulse Ox 99 F 106 20 122/95 96 03/18/19 21:43 03/18/19 21:43 03/18/19 21:43 03/18/19 21:43 03/18/19 21:43 Vital Signs Reviewed: Yes - Tao Coma Scale Best Eye Response: 4 - Spontaneous Best Motor Response: 6 - Obeys Commands Best Verbal Response: 5 - Oriented Coma Scale Total: 15 Diagnostics - Vital Signs Vital Signs Temp Pulse Resp BP Pulse Ox 03/18/19 21:43 99 F 106 20 122/95 96 - Laboratory Result Diagrams: 03/18/19 22:48 03/18/19 22:48 Lab Statement: Any lab studies that have been ordered have been reviewed, and results considered in the medical decision making process. - CT Brain CT CT Interpretation Completed By: Radiologist Summary of CT Findings: Impression: No acute intracranial process. No intracranial hemorrhage. ED physician has reviewed this imaging report. - EKG 2248 Cardiac Rate: NL - 99 bpm EKG Rhythm: Sinus Rhythm Summary of EKG Findings: NSR at 99 BPM, P waves, QRS complex, and T waves are within normal limits, T waves and intervals are normal, no ischemic changes. This is a normal EKG. ED physician has reviewed and interpreted this EKG. Dizzy Course/Dx - Course Course Of Treatment: Pt is a 63 y/o M with cc of sudden onset dizziness and near syncopal event with exertion tonight. Additionally c/o right hip pain following a surgery in early January 2019. Upon physical exam, the pt exhibits no acute abnormalities. Blood work reveals WBCs of 11.1, hgb of 12.9, hct of 38 , MPV of 7.0, chloride of 100, anion gap of 12, lactic acid of 2.2, magnesium of 1.7, and alkaline phosphatase of 113. In the ED course, the pt was administered fluids. Toxicology reveals serum alcohol of 265 at 2248. EKG at 2248 reveals NSR at 99 BPM without any ischemic changes. Brain CT is negative for acute intracranial process or hemorrhage. Pt aware of all results. He understands and agrees with plan for discharge. Dx of dizziness and alcohol intoxication. - Diagnoses Provider Diagnoses: Dizziness, Alcohol intoxication Discharge ED - Sign-Out/Discharge Documenting (check all that apply): Patient Departure - Patient will be discharged home. Patient Received Moderate/Deep Sedation with Procedure: No - Discharge Plan Condition: Good Disposition: HOME Patient Education Materials: Alcohol Intoxication (ED), Dizziness (ED) Referrals: Andrey Crespo MD [Primary Care Provider] - If Needed Additional Instructions: Your tests tonight were normal except for your blood alcohol level, which was quite high. I suspect that is why you got dizzy. - Billing Disposition and Condition Condition: GOOD Disposition: Home - Attestation Statements Document Initiated by Bhavya: Yes Documenting Scribe: Deloris Lamar Provider For Whom Bhavya is Documenting (Include Credential): Dr. Te Parish MD Scribe Attestation: I, Deloris Lamar scribed for Dr. Te Parish MD on 03/19/19 at 1833. Scribe Documentation Reviewed: Yes Provider Attestation: The documentation as recorded by the Deloris oro accurately reflects the service I personally performed and the decisions made by me, Dr. Te Parish MD Status of Scrmerritt Document: Viewed
[2019-03-18 22:56] LABS: ABS Basophils 0.1 10^3/ul (0-0.2); ABS Eosinophils 0.2 10^3/ul (0-0.6); ABS Lymphocytes 2.9 10^3/ul (1.0-4.8); ABS Monocytes 0.8 10^3/ul (0-0.8); Eosinophil % 2.1 %; Hematocrit 38 % (42-52); Hemoglobin 12.9 g/dL (14.0-18.0); Lymphocyte % 26.7 %; Mean Corpuscular HGB Conc 34 g/dL (31-36); Mean Corpuscular Hemoglobin 31 pg (27-31); Mean Corpuscular Volume 91 fL (80-94); Nucleated Red Blood Cells % 0.1; Platelet Count 225 10^3/uL (150-450); Red Cell Distribution Width 14 % (10-15)
[2019-03-18 23:12] LABS: Albumin 4.1 g/dL (3.2-5.2); Albumin/Globulin Ratio 1.4 (1-3); Calcium 8.8 mg/dL (8.6-10.3); EGFR African American 103.8 (>60); EGFR Non-African American 85.8 (>60); Magnesium 1.7 mg/dL (1.9-2.7); Potassium 3.5 mmol/L (3.5-5.0); Total Bilirubin 0.5 mg/dL (0.2-1.0); Total Protein 7.1 g/dL (6.4-8.9)
[2019-03-19 00:04] LABS: TSH (Thyroid Stimulating Horm) 0.6 mcIU/mL (0.34-5.60)
[2019-03-19 08:14] VITALS: BP 132/95
== END 2019-03-19 08:13 | disposition home or self-care (01) ==
LOC: ED 21:40
DX: F10.129 Alcohol abuse with intoxication, unspecified (principal); R11.0 Nausea; R42 Dizziness and giddiness; I10 Essential (primary) hypertension; F32.9 Major depressive disorder, single episode, unspecified; F17.210 Nicotine dependence, cigarettes, uncomplicated; Z79.899 Other long term (current) drug therapy
CPT/HCPCS: 36415; 70450; 80053; 80320; 83605; 83735; 84443; 84484; 85025; 93005; 96360; 96361; 99282; G0480

== ENCOUNTER 2019-08-03 16:23 | Inpatient (IN) | payer OTHER ==
--- NOTE | 2019-08-03 16:35 | ED ---
Neurological HPI - HPI Summary HPI Summary: Rodrigo Dan overhead called from scene at 1613, ETA 7 minutes. Patient arrives to the ED at 1623. This pt is a 63 y/o male presenting to [facility] via EMS for paralyzed left arm. EMS reports last well known was at 2330 last night, 08/02/19. Per EMS patient's friend visited the patient yesterday at 2330 and saw him well. EMS states patient's friend visited the pt again today at 1530 and pt was in the same chair as last night. Per EMS, at 1530 according to friend pt was not making any sense and was incontinent. Upon EMS arrival to scene they found patient to have khan on his left arm from it rubbing on side of chair pt was sitting on. Per EMS pt does not have strength in his legs and cannot stand, however patient can move his legs. Patient denies headache. PMHx significant for HTN, depression, alcohol abuse, right hip fracture. HPI IS LIMITED DUE TO LEVEL 5 CAVEAT - pt with confusion - History of Current Complaint Stated Complaint: RODRIGO DAN Time Seen by Provider: 08/03/19 16:24 Hx Obtained From: EMS Hx From Patient Unobtainable Due To: Other - LEVEL 5 CAVEAT - confusion Onset/Duration: Started hours ago, Still Present Timing: Constant Current Severity: Moderate Neurological Deficit Location: LUE Character: Paralysis - right arm Aggravating: Unknown Alleviating: Unknown Associated Signs and Symptoms: Negative: Headache, Fever - Additional Pertinent History Primary Care Physician: FREEMAN - Allergy/Home Medications Allergies/Adverse Reactions: Allergies Allergy/AdvReac Type Severity Reaction Status Date / Time No Known Allergies Allergy Verified 03/18/19 21:49 Home Medications: Home Medications Atenolol TAB* [Tenormin TAB* 50 MG] 50 mg PO BEDTIME 08/03/19 [History Confirmed 08/03/19] Zolpidem Tartrate 10 mg PO BEDTIME PRN 08/03/19 [History Confirmed 08/03/19] atenoloL [Atenolol] 100 mg PO QAM 08/03/19 [History Confirmed 08/03/19] PMH/Surg Hx/FS Hx/Imm Hx Endocrine/Hematology History: Denies: Hx Diabetes Cardiovascular History: Reports: Hx Hypertension Denies: Hx Pacemaker/ICD Respiratory History: Denies: Hx Asthma, Hx Chronic Obstructive Pulmonary Disease (COPD), Hx Pneumonia Musculoskeletal History: Reports: Hx of Fracture(s) - Right hip fracture Sensory History: Reports: Hx Contacts or Glasses Denies: Hx Hearing Aid Opthamlomology History: Reports: Hx Contacts or Glasses Psychiatric History: Reports: Hx Depression, Hx Substance Abuse - ETOH Denies: Hx Panic Disorder - Surgical History Surgical History: Yes Surgery Procedure, Year, and Place: rt hand cyst removal as a child; laceration repair rt forearm Hx Anesthesia Reactions: No - Family History Known Family History: Positive: Hypertension, Diabetes - Social History Alcohol Use: Daily Alcohol Amount: "beer and vodka" almost daily Hx Substance Use: Yes Substance Use Type: Reports: Other - "rare" Substance Use Comment - Amount & Last Used: rare Hx Tobacco Use: Yes Smoking Status (MU): Heavy Every Day Tobacco Smoker Type: Cigarettes Review of Systems - ROS Summary Review of Systems Summary: ROS IS LIMITED DUE TO LEVEL 5 CAVEAT - confusion Negative: Fever Neurological: Other - POSITIVE: left arm paralyzed, confusion Negative: Headache All Other Systems Reviewed And Are Negative: No Physical Exam - Summary Physical Exam Summary: Constitutional: Well-developed, Well-nourished, Alert. (-) Distressed Skin: Warm, Dry HENT: Normocephalic; Atraumatic Eyes: Conjunctiva normal Neck: Musculoskeletal ROM normal neck. (-) JVD, (-) Stridor, (-) Tracheal deviation Cardio: Rhythm regular, rate normal, Heart sounds normal; Intact distal pulses; The pedal pulses are 2+ and symmetric. Radial pulses are 2+ and symmetric. (-) Murmur Pulmonary/Chest wall: Effort normal. (-) Respiratory distress, (-) Wheezes, (-) Rales Abd: Soft. (-) Tenderness, (-) Distension, (-) Guarding, (-) Rebound Musculoskeletal: (-) Edema Lymph: (-) Cervical adenopathy Neuro: Alert, Oriented x3, Strength normal, Patient is unable to see out of left eye, left arm is paralytic Psych: Mood and affect Normal Triage Information Reviewed: Yes Vital Signs On Initial Exam: Initial Vitals Temp Pulse Resp BP Pulse Ox 99.1 F 135 20 215/129 93 08/03/19 16:44 08/03/19 16:44 08/03/19 16:44 02/07/20 16:44 08/03/19 16:44 Vital Signs Reviewed: Yes Completion Of Physical Exam Limited Due To: Level 5 - confusion Procedures - Sedation Patient Received Moderate/Deep Sedation with Procedure: No Diagnostics - Laboratory Result Diagrams: 08/03/19 17:00 08/03/19 17:00 Lab Statement: Any lab studies that have been ordered have been reviewed, and results considered in the medical decision making process. - CT Brain CT CT Interpretation Completed By: Radiologist Summary of CT Findings: IMPRESSION: No acute intracranial pathology. Preliminary findings were discussed with Dr. Daniel in the emergency department at approximately 4:45 PM on August 03, 2019. Head/Neck CTA CT Interpretation Completed By: Radiologist Summary of CT Findings: IMPRESSION: 1. Evaluation is limited by motion artifact which markedly limits evaluation of the distal cervical portions of the internal carotid arteries and vertebral arteries bilaterally as well as of the petrous portions of the internal carotid arteries. 2. Within the limitations of the study, there is no internal carotid artery stenosis by nascet criteria. 3. Within the limitations of the study, there is no aneurysm, vascular malformation , occlusion, or stenosis of the intracranial circulation. 4. Atheromatous disease. 5. Emphysema. Dr. Daniel has reviewed this report. - EKG 16:55 Cardiac Rate: Tachycardia - at 125 bpm. EKG Rhythm: Sinus Tachycardia Summary of EKG Findings: EKG at 1655 shows sinus tachycardia at a rate of 125 bpm. No STEMI. This EKG was interpreted and reviewed by ED physician. 1922 Cardiac Rate: Tachycardia - at 118 bpm EKG Rhythm: Sinus Tachycardia Summary of EKG Findings: EKG at 1922 shows sinus tachycardia at a rate of 118 bpm. No STEMI. This EKG was interpreted and reviewed by ED physician. NIH Scale - NIH Scale Level of Consciousness: Alert/Keenly Responsive Ask Patient the Month and His/Her Age: Both Correct Ask Pt to Open/Close Eyes and Life Scientists/Release Non-Paretic Hand: Both Correctly Best Gaze (Only Horizontal Eye Movement): Normal Visual Field Testing: Complete Hemianopia Facial Paresis-Pt to Smile & Close Eyes or Grimace Symmetry: Normal/Symmetrical Motor Function - Right Arm: No Drift-Holds 10 Seconds Motor Function - Left Arm: No Effort Against [place] Motor Function - Right Leg: No Drift-Holds 10 Seconds Motor Function - Left Leg: Drifts LT 10 seconds Limb Ataxia-Must be out of Proportion to Weakness Present: Absent Sensory (Use Pinprick to Test Arms/Legs/Trunk/Face): Normal Best Language (Describe Picture, Name Items): Some Loss Dysarthria (Read Several Words): Slurs Some Words Extinction and Inattention: Profound Dick-Inattention Total Score: 10 Re-Evaluation - Re-Evaluation First Eval Re-Evaluation Time: 17:00 Comment: Dr. Rivera, neurologist, recommends admission to the hospitalist. Course/Dx - Course Course Of Treatment: Code Dan overhead called from scene at 1613, ETA 7 minutes. Patient arrives via EMS at 1623. Dr. Daniel and Dr. Rivera, neurologist , immediately at bedside. Pt to CT at 1624. Pt back from CT at 1642. At about 1700 Dr. Rivera recommends admission to hospitalist. Assessment/Plan: Pt is a 63 y/o male presenting to [facility] via EMS for paralyzed left arm. EMS reports last well known was at 2330 last night, 08/02/19. Per EMS , at 1530 today according to friend pt was not making any sense and was incontinent. Per EMS pt does not have strength in his legs and cannot stand, however patient can move his legs. Patient denies headache. Blood work obtained. Brain CT reveals no acute intracranial pathology. Head/Neck CTA shows 1. Evaluation is limited by motion artifact which markedly limits evaluation of the distal cervical portions of the internal carotid arteries and vertebral arteries bilaterally as well as of the petrous portions of the internal carotid arteries. 2. Within the limitations of the study, there is no internal carotid artery stenosis by nascet criteria. 3. Within the limitations of the study, there is no aneurysm, vascular malformation, occlusion, or stenosis of the intracranial circulation. 4. Atheromatous disease. 5. Emphysema. In the ED course the pt received Ativan, Metoprolol, Thiamine, Keppra. Dr. Rivera, neurologist, recommends admission to the hospitalist. Discussed case with Dr. Simpson, hospitalist, who accepted the pt for admission. - Diagnoses Provider Diagnoses: Encephalopathy, Hypertensive crisis, Left-sided weakness During the Visit The Following Alert/Code Occurred: Code Dan - overhead called from scene at 1613, ETA 7 minutes. - Physician Notifications Discussed Care Of Patient With: Lashawn Simpson - hospitalist Time Discussed With Above Provider: 18:40 Instructed by Provider To: Admit As Inpatient Discharge ED - Sign-Out/Discharge Documenting (check all that apply): Patient Departure - Admit to [facility] [place] All imaging exams completed and their final reports reviewed: No - Discharge Plan Condition: Stable Disposition: ADMITTED TO [facility] - Attestation Statements Document Initiated by Scribe: Yes Documenting Scribe: Sia Tripathi Provider For Whom Scribe is Documenting (Include Credential): Davon Daniel MD Scribe Attestation: Sia Thakkar, scribed for Davon Daniel MD on 08/03/19 at 2152. Status of Scribe Document: Ready
[2019-08-03] MEDS ORDERED: Iodixanol* (CONTRAST) 320 MG/ML 100 ML SDV IV ONE (16:40)
[2019-08-03] MEDS ORDERED: levETIRAcetam 1000MG IVPREMIX* 1,000 MG/100 ML BAG IVPB ONE (17:01)
[2019-08-03] MEDS ORDERED: Lorazepam PYXIS KEY PRN (17:01)
[2019-08-03] MEDS ORDERED: LORazepam INJ* 2 MG/ML 1 ML VIAL IV PUSH ONE (17:01)
[2019-08-03] MEDS ORDERED: NS 0.9% 1000 ML** 1,000 ML IV ONE ×2 (17:06→22:02)
[2019-08-03] MEDS ORDERED: Thiamine INJ* 100 MG/ML 2 ML VIAL IV ONE (17:07)
[2019-08-03] MEDS ORDERED: Cyanocobalamin INJ * 1,000 MCG/ML VIAL 1 ML VIAL IM ONE (17:08)
[2019-08-03] MEDS ORDERED: Metoprolol Tartrate IV* 1 MG/ML 5 ML VIAL IV ONE (17:13)
[2019-08-03 17:35] LABS: ABS Lymphocytes 0.8 10^3/ul (1.0-4.8); ABS Monocytes 0.5 10^3/ul (0-0.8); ABS Neutrophils 5.6 10^3/ul (1.5-7.7); Eosinophil % 0.1 %; Hematocrit 43 % (42-52); Hemoglobin 14.7 g/dL (14.0-18.0); Lymphocyte % 11.4 %; Mean Corpuscular HGB Conc 34 g/dL (31-36); Mean Corpuscular Hemoglobin 33 pg (27-31); Mean Corpuscular Volume 95 fL (80-94); Mean Platelet Volume 8.1 fL (7.4-10.4); Nucleated Red Blood Cells % 0.1; Platelet Count 237 10^3/uL (150-450); Red Blood Count 4.53 10^6 /uL (4.18-5.48); Red Cell Distribution Width 13 % (10-15); White Blood Count 6.9 10^3/uL (3.5-10.8)
[2019-08-03 17:46] LABS: Albumin 4.8 g/dL (3.2-5.2); Calcium 9.6 mg/dL (8.6-10.3); Total Bilirubin 0.9 mg/dL (0.2-1.0)
[2019-08-03 17:52] LABS: Albumin/Globulin Ratio 1.6 (1-3); BUN/Creatinine Ratio 11.7 (8-20); EGFR African American 88.8 (>60); EGFR Non-African American 73.4 (>60); Total Protein 7.8 g/dL (6.4-8.9)
[2019-08-03 18:01] LABS: Troponin I 0.02 ng/mL (<0.03)
[2019-08-03 18:02] LABS: TSH (Thyroid Stimulating Horm) 0.44 mcIU/mL (0.34-5.60)
[2019-08-03 18:04] LABS: Free T4 1.13 ng/dL (0.61-1.12)
[2019-08-03] MEDS ORDERED: Ondansetron INJ* 2 MG/ML VIAL IV PRN (18:41)
[2019-08-03] MEDS ORDERED: LORazepam INJ* 2 MG/ML 1 ML VIAL IV PUSH SCH (19:00)
--- NOTE | 2019-08-03 19:36 | CONS ---
NEUROLOGY CONSULTATION NOTE: DATE OF CONSULT: 08/03/19 CONSULTING PHYSICIAN: Dr. Davon Daniel. REASON FOR CONSULT: Code perez due to inability to communicate as well as lethargy. CHIEF COMPLAINT: Confusion. HISTORY OF PRESENT ILLNESS: Mr. Byron Randall is a 63-year-old man with history of alcohol abuse, who presented to [facility] on 08/03/19 via EMS. A code perez was activated today to evaluate the patient for sudden onset confusion. According to the patient's friend who was not available today, this was information gathered by EMS, the patient was last known well at 2330 on 08/02/19. The patient was having a few beers with his friend. The friend came back to visit him at approximately 3-3:30 today, when he found the patient sitting in the same position in the same chair since yesterday. The patient was not making sense. The patient was unable to communicate. The patient was unable to stand. EMS was contacted. The patient was brought in by EMS for further evaluation. Code perez was activated. The patient was in the hospital at 1630. A CT of the head was obtained and showed no acute intracranial abnormality except for he has moderate-to- severe cerebellar atrophy. CTA head and neck was also obtained, but due to movement the patient was unable to stay still, but there was no evidence of large vessel occlusion. The patient complains of pain in the shoulders. He does not participate with the examiner. He responds to simple commands by nodding yes or no. He was able to close and open his eyes and stick out his tongue. Otherwise, he cannot move his extremities. NIH stroke scale was 16 for inability to move the upper extremities, limb ataxia bilaterally, aphasia and dysarthria. The patient does also have visual extinction that was also accounted for the NIH stroke scale. The patient was not a candidate for IV alteplase therapy due to last known well time outside the window. The patient was also not a candidate for mechanical thrombectomy as he does not have an LVO on the CTA. The patient's Accu-Chek was 80 by EMS. The Accu-Chek was done at the CT scanner and it was low in the 40s; however, repeated within 3 minutes and it was within normal range at 92. The patient's fingers were extremely cold and it had to be rewarmed before an Accu-Chek was obtained the second time around. PAST MEDICAL HISTORY: Hypertension, right wrist cyst removal, fracture of the leg, alcohol abuse, vitamin B12 deficiency, recurrent syncope. MEDICATIONS: Medications that were obtained from prior hospitalization: 1. Atenolol 50 mg b.i.d. 2. Vitamin B 100 daily. 3. Ambien 10 mg at night. 4. Lisinopril 5 mg daily. 5. Dyazide 37.5/25 daily. ALLERGIES: No known drug allergies. FAMILY HISTORY: Unable to be obtained due to the patient's confusion. SOCIAL HISTORY: Unknown, but according from prior records, the patient smokes half a pack per day since he was 14 years old. He drinks alcohol, 2 bottles of miesha a day. He has no history of drug use. He lives alone. REVIEW OF SYSTEMS: The patient cannot provide a review of systems due to encephalopathy. PHYSICAL EXAMINATION: Vitals: Temperature of 99.1, pulse rate of 135, respiratory rate of 20, oxygen saturation of 93, blood pressure is 215/129. General: An ill- appearing frail male, who has an odor of urine as well as alcohol. Head: Atraumatic, normocephalic. Neck: Supple and symmetrical with no carotid bruit. Eyes: Conjunctivae/corneas are clear. Cardiovascular: Tachycardia with no murmurs. Chest: Clear to auscultation bilaterally. Skin: No skin lesions or laceration. Extremities: Stiff extremities, but no hammer toes or high arches. Psych: Affect is flat. Unable to cooperate or obtain rapport with the examiner. Neurological Examination: Mental status, the patient is awake, alert to self and place, but not time. He recognizes that he is in the hospital. He seems to have [id number] aphasia. This could be related to an encephalopathy though and not due to a focal stroke. Cranial nerves, pupils are equal, round, and reactive to light. The patient has a left homonymous hemianopsia. He is unable to track examiner. 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 No facial asymmetry. Tongue is symmetric and midline with no atrophy or fasciculation. Motor examination increased tone in both upper and lower extremity, but he is able to slightly move antigravity especially in the lower extremities. Coordination and gait were not assessed. Reflexes reduced throughout 1+ and 0 at the ankles bilaterally. DIAGNOSTIC STUDIES/LAB DATA: Labs, imaging, no other diagnostic testing. Please see the HPI. Labs are not available at this time. ASSESSMENT: Mr. Byron Randall is a 63-year-old man with hypertension and alcohol abuse who has prior history of syncope and loss of consciousness who presented with acute encephalopathy. 1. Acute encephalopathy of unclear etiology. I suspect that the patient has possible toxic -metabolic encephalopathy related to possible thiamine or vitamin B12 deficiency. Another differential diagnosis would be hypertensive encephalopathy causing posterior reversible encephalopathy given his visual deficits and possibly postictal state. I do not suspect he has a nonconvulsive status epilepticus since he is responding to one step commands. RECOMMENDATION: I have started the patient on IV fluids. Gave a 1000 bolus of normal saline x1 as well as started him on high dose thiamine replacement, 500 mg every 8 hours for a total of 9 doses, then 250 mg every 12 hours for a total of 3 doses and then continue 100 mg p.o. daily. I also started him on vitamin B12, cyanocobalamin 1000 mcg x1 given that his last B12 level was low in the 140s. Furthermore, Dr. Daniel has given the patient one dose of levetiracetam x1 to make sure he is not having any possible seizures with postictal confusion. I have ordered a MRI of the brain, which hopefully can be done today to look for PRES or occipital lobe infarctions. The patient should be admitted to the hospitalist service. If his blood pressure is under control with systolic blood pressure ranging between 160 and 180 within the next 24 hours, he could be admitted to [address] [place] [address] rather than the ICU. However, if we have trouble in controlling his blood pressure he shoud be admitted to the ICU for nicardipine drip, but again please do not lower his blood pressure for more than 25% of the systolic blood pressure within the next 24 hours. Please practise seizure precaution. Neuro checks every 2 hours for the next 24 hours. I will follow up with the patient tomorrow. [id number]/[facility] #: [id number] [facility]
--- NOTE | 2019-08-03 23:18 | HP ---
CC: Dr. Andrey Crespo * MEDICINE HISTORY AND PHYSICAL: DATE OF ADMISSION: 08/03/19 PROVIDER: Pallavi Goodwin NP ATTENDING PHYSICIAN: Dr. Lashawn Simpson * (dictated by Pallavi Goodwin NP). PRIMARY CARE PROVIDER: Dr. Andrey Crespo. CONSULTING NEUROLOGIST: Dr. Rivera. CHIEF COMPLAINT: Code Jt called out in the field. HISTORY OF PRESENT ILLNESS: Mr. Randall is a 63-year-old male, who was evaluated by EMS out in the community and was brought in with concern for neurological deficit as a Code Waters. HPI was provided by the ER physician and information found in the chart as the patient is somnolent and does not verbally respond or cooperate with exam. Prior to my entering the room, the patient received lorazepam due to concern for ETOH withdrawal. Per the notes, Mr. Randall was seen by a friend yesterday around 11:30 in the evening and appeared to be well at that time. He may have been drinking per EMS. He was left by his friend and then that same friend visited the patient again today around 3:30 and found that the patient was still in the same chair as the previous night. According to the friend, he was not making any sense and was incontinent. Mr. Randall was unable to push himself up from the chair , and he was assisted by EMS and was brought in as a Code Waters. Here in the ER, he was evaluated on the site by the ER physician and neurologist. His initial CT showed no acute intracranial pathology. He had a head and neck CTA, which showed no internal carotid artery stenosis by NASCET criteria and no evidence of aneurysm, vascular malformation, occlusion or stenosis in the anterior canal circulation. Evaluation was limited by motion artifact, which markedly limited the evaluation of distal cervical portion of the internal carotid arteries and vertebral arteries bilaterally as well as the petrous portions of the internal carotid arteries. There is atheromatous disease and emphysema also noted. Consultation from the Neurology is pending, but per discussions it was unclear what is causing the patient's altered mental status, it is not clearly a stroke, although his initial NIHSS Stroke Score is 10 (per the ED notes) due to slurring, juan alberto inattention, loss of dysarthria, and loss of some language. Mr. Randall is noted to also have an alcohol level of 87 at this time. He is also treated with Keppra, metoprolol, thiamine, and Ativan, was concerned for potential alcohol withdrawal. He had an initial glucose level in the 40s but a recheck was in the 90s; this was thought to be secondary to insufficient sample. Given all these findings, Hospital Medicine was consulted for admission. PAST MEDICAL HISTORY: On review of previous records include: 1. Hypertension. 2. History of alcohol use. 3. History of right wrist cyst removed as a child. 4. History of fracture of the right leg. 5. Hyponatremia. 6. History of acute blood loss anemia. 7. Tobacco abuse. HOME MEDICATIONS: Not yet confirmed; pharmacy is closed. Rough estimate of the list from January 2019 includes: 1. Bupropion XL 300 mg daily. 2. Ambien 10 mg q.h.s. 3. Thiamine 100 mg daily. 4. Lisinopril 5 mg daily. 5. Percocet 5/325 one tab q.6 hours p.r.n. pain. 6. Senna 1 tab q.h.s. p.r.n. constipation. 7. Multivitamin 1 tab daily. 8. Vitamin B12 1000 mcg daily. 9. Vitamin D 2000 units daily. 10. Atenolol 100 mg nightly. ALLERGIES: No known allergies on record. FAMILY HISTORY: Unobtainable secondary to altered mental status. SOCIAL HISTORY: He has previously reported to be a smoker and previously endorsed alcohol use that was daily. This was unable to be confirmed at this time. His report is he lives alone. Previous surrogate decision maker on file , none listed. REVIEW OF SYSTEMS: Attempted, unobtainable secondary to altered mental status. PHYSICAL EXAMINATION GENERAL: This is a well-developed male, seen lying in bed. He is somnolent, but appears in no acute distress. VITAL SIGNS: Temp 99.1, heart rate 108, respiratory rate 15, blood pressure 134 /99, O2 sat 96% on room air. HEENT: Head is atraumatic, normocephalic. Cannot assess pupils as the patient squeezes his eyes shut and does allow me to open his eyes. Oral mucosa is somewhat dry. NECK: Without lymphadenopathy. No JVD noted. No stridor noted. LUNGS: Clear to auscultation. CARDIAC: Regular rate and rhythm. Normal S1, S2 heart sounds. Radial, posterior tibialis, and dorsalis pedis pulses are 2+ symmetric and equal bilaterally. ABDOMEN: Soft, nontender, nondistended. Bowel sounds normoactive. MUSCULOSKELETAL: There is no clubbing or cyanosis. No edema noted. NEUROLOGIC: Somnolent. Does withdraw from noxious stimuli to the chest and extremities. He has recently received Ativan and does not verbally reply to any of my questions. SKIN: Limited assessment, but appears grossly intact. DIAGNOSTIC STUDIES/LAB DATA: CBC: WBC 6.9, hemoglobin 14.7, hematocrit 43, platelets 237. CMP: Sodium 138, potassium 4.0, chloride 95, carbon dioxide 27 , BUN 12, creatinine 1.03, glucose 81, lactic acid 3.1, calcium 9.6. Total bilirubin is 0.9, AST 66, ALT 41, alk phos 82, ammonia 44, troponin 0.02, total protein 7.8. Vitamin B12 701. TSH 0.44. Imaging: As per above. EKG shows sinus tachycardia. Old medical records were reviewed. ASSESSMENT AND PLAN: This is a 63-year-old male, who presented to the ER today with concerns for altered mental status with unclear etiology. He will be admitted to the telemetry for plans as follows: 1. Altered mental status. He is to be admitted for observation to rule out CVA. He has been seen by Neurology, and he has ordered an MRI. CVA remains in the differential, as well as PRES. Neurology has also recommended that he continue with thiamine 500 mg IV q.8 hours (already ordered), as this also may represent Wernicke's encephalopathy given his history of alcohol use disorder. He has received Keppra. He has no known seizure history that I could find in his records. He received a dose of Ativan with concern for alcohol withdrawal while here in the ER. We will continue him on WAM protocol, but I will hold any standing lorazepam orders at this time, given his current mental status. He will hopefully be able to have the MRI this evening, which is the plan per Radiology. We will continue him on q.2 neuro checks. We will allow for permissive hypertension with goals of systolic blood pressures in 180s. He has received metoprolol tartrate 5 mg IV x1 dose, which apparently has been effective in controlling his heart rate and blood pressure as this is now closer to goal. He did present with a 215/129 blood pressure on arrival. We are still pending urine studies. He will be n.p.o. until he is able to become more awake and pass his dysphagia screening. Other labs are still pending, which includes cortisol level. 2. Lactic acidosis seems secondary to hypoxia and his mental state. He did receive some fluids here in the ER. We will repeat this and monitor for resolution. 3. Hypertension. As per above, we will allow for permissive hypertension with a goal of systolic 180. 4. History of alcohol use. Again as per above, we will have him on the WA protocol with p.r.n. lorazepam doses as needed and indicated. Also, he is receiving thiamine and folate per protocol. 5. DVT prophylaxis: Subcu heparin. 6. Code status: Full code. TIME SPENT: Approximately 60 minutes was spent on this admission, which includes greater than half that time spent [id number] with the patient and reviewing records, obtaining history and physical, and reviewing the plan of care with my attending, Dr. Simpson, who is in agreement. PALLAVI GOODWIN, JAMARCUS [id number]/[facility] #: [id number] AP[facility]
[2019-08-03] MEDS: Heparin VIAL(*) 5000 UNITS/ML VIAL (FIVE THOUSAND) SUBCUT SCH (23:22)
[2019-08-03] MEDS: Thiamine INJ* 500 MG in NS 0.9% 250 ML* 250 ML IV SCH (23:22)
[2019-08-04] MEDS: Heparin VIAL(*) 5000 UNITS/ML VIAL (FIVE THOUSAND) SUBCUT SCH (06:00)
[2019-08-04 06:36] LABS: ABS Eosinophils 0.1 10^3/ul (0-0.6); ABS Lymphocytes 1.4 10^3/ul (1.0-4.8); ABS Monocytes 0.8 10^3/ul (0-0.8); ABS Neutrophils 4.7 10^3/ul (1.5-7.7); Eosinophil % 0.8 %; Hematocrit 36 % (42-52); Hemoglobin 12.8 g/dL (14.0-18.0); Lymphocyte % 19.6 %; Mean Corpuscular HGB Conc 35 g/dL (31-36); Mean Corpuscular Hemoglobin 33 pg (27-31); Mean Corpuscular Volume 94 fL (80-94); Mean Platelet Volume 7.8 fL (7.4-10.4); Platelet Count 182 10^3/uL (150-450); Red Blood Count 3.87 10^6 /uL (4.18-5.48); Red Cell Distribution Width 13 % (10-15); White Blood Count 6.9 10^3/uL (3.5-10.8)
[2019-08-04 06:50] LABS: BUN/Creatinine Ratio 16.5 (8-20); Calcium 8.8 mg/dL (8.6-10.3); EGFR African American 95.2 (>60); EGFR Non-African American 78.7 (>60); Potassium 3.7 mmol/L (3.5-5.0)
[2019-08-04] MEDS: Thiamine INJ* 500 MG in NS 0.9% 250 ML* 250 ML IV SCH ×2 (06:59→16:02)
[2019-08-04] MEDS: Multivitamins/Minerals TAB PO SCH (09:03)
[2019-08-04] MEDS: Folic Acid TAB* 1 MG PO SCH (09:03)
--- NOTE | 2019-08-04 09:52 | PN ---
Subjective Date of Service: 08/04/19 Interval History: Patient incontinent upon arrive to hospital yesterday, per nursing urinary incontinence persists today and patient states he is unaware of when he has the urge to urinate. No reported fecal incontinence. Patient tells me he does not have abd pain, chest pain, or difficulty breathing. Tells me the year is "19." Objective Active Medications: Acetaminophen (Tylenol Tab*) 650 mg PO Q4H PRN PRN Reason: MILD PAIN or TEMP > 100.4 Folic Acid (Folvite Tab*) 1 mg PO DAILY [facility] Last Admin: 08/04/19 09:03 Dose: Not Given Heparin Sodium (Porcine) (Heparin Vial(*)) 5,000 units SUBCUT Q8HR [facility] Last Admin: 08/04/19 06:00 Dose: 5,000 units Thiamine HCl 500 mg/ Sodium (Chloride) 255 mls @ 255 mls/hr IV Q8HR [facility] Stop: 08/05/19 23:59 Last Admin: 08/04/19 06:59 Dose: 255 mls/hr Lorazepam (Ativan Inj*) 0 - 3 mg IV PUSH .PER [facility] PROTOCOL PEPE; Protocol Miscellaneous (Ativan Pyxis Bates) 1 ea N/A .ATIVAN IV BATES PRN PRN Reason: PYXIS BATES Multivitamins/Minerals (Theragran/Minerals Tab*) 1 tab PO DAILY [facility] Last Admin: 08/04/19 09:03 Dose: Not Given Ondansetron HCl (Zofran Inj*) 4 mg IV Q4H PRN PRN Reason: NAUSEA/VOMITING Vital Signs - 8 hr 08/04/19 08/04/19 08/04/19 03:15 05:30 07:00 Temperature 98.6 F 99 F Pulse Rate 103 111 Respiratory 16 18 18 Rate Blood Pressure 137/110 153/105 (mmHg) O2 Sat by Pulse 98 97 Oximetry 08/04/19 08/04/19 07:15 09:00 Temperature 97.5 F Pulse Rate 110 Respiratory 18 18 Rate Blood Pressure 155/113 (mmHg) O2 Sat by Pulse 94 Oximetry Oxygen Devices in Use Now: None Appearance: Thin, black male, laying in hospital bed, appearing comfortable and in NAD Eyes: No Scleral Icterus, - - PERRL Ears/Nose/Mouth/Throat: Mucous Membranes Moist Neck: Trachea Midline Respiratory: Symmetrical Chest Expansion and Respiratory Effort, Clear to Auscultation Cardiovascular: NL Sounds; No Murmurs; No JVD, RRR Abdominal: - - abd soft, nontender, nondistended; rectal tone intact Extremities: No Edema Skin: No Rash or Ulcers Neurological: NL Sensation, - - follows simple commands such as raising legs and open eyes, but doesnt squeeze my hands or move his upper extremities; alert , oriented to location and self but not time; face symmetrical and speech clear Result Diagrams: 08/04/19 06:16 08/04/19 06:16 Diagnostic Imaging: MRI BRAIN IMPRESSION: LARGE BILATERAL SYMMETRIC AREAS OF RESTRICTED DIFFUSION PRESENT WITHIN THE OCCIPITAL PARIETAL AND POSTERIOR FRONTAL LOBES MOST CONSISTENT WITH POSTERIOR REVERSIBLE ENCEPHALOPATHY SYNDROME LESS LIKELY INFARCTS. Assess/Plan/Problems-Billing Assessment: 63 yo black male with PMHx alcohol use, HTN, tobacco use presents with altered mental status. - Patient Problems (1) Altered mental status Current Visit: Yes Status: Acute Code(s): R41.82 - ALTERED MENTAL STATUS, UNSPECIFIED SNOMED Code(s): 205262922 Comment: -presents with altered mental status per friend who called EMS -appears to be following more commands today than yesterday, but is still not able to follow some simple commands -CT brain and CTA head/neck without acute findings; ammonia wnl -MRI demonstrates findings consistent with PRES, though less likely bilateral infarcts; controlling HTN as below, continue keppra, starting ASA and statin per Dr. Rivera -appreciate Neurology consult -EEG pending -UDS pending -alcohol use possibly a contributing factor; not scoring for withdrawal symptoms on WAM to receive ativan; initially treating empirically for wernicke' s with IV thiamine, though considering PRES most likely will change to po (2) Bilateral arm weakness Current Visit: Yes Status: Acute Code(s): R29.898 - OTH SYMPTOMS AND SIGNS INVOLVING THE MUSCULOSKELETAL SYSTEM SNOMED Code(s): 28957759252953347 Comment: -MRI brain most likely PRES and less likely bilateral CVA -urinary incontinence, but rectal tone intact -possibly PRES could cause these findings -sensation intact per patient -CT c-spine with severe stenosis at multiple levels -MRI c-spine pending -patient has hx of frequent falls at home while intoxicated; unclear history leading up to this hospitalization. Will order cervical collar until MRI can be completed (3) Alcohol use Current Visit: Yes Status: Acute Code(s): Z72.89 - OTHER PROBLEMS RELATED TO LIFESTYLE SNOMED Code(s): 576050 Comment: -known hx of alcohol use -alcohol in 80s at arrival -WAM score 6 today, has not scored to need ativan yet for withdrawal sxs -continue WAM protocol (4) Tachycardia Current Visit: Yes Status: Acute Code(s): R00.0 - TACHYCARDIA, UNSPECIFIED SNOMED Code(s): 3494135 Comment: -persistent sinus tachycardia -d-dimer positive, will order CTA chest to r/o PE -could be rebound tachycardia related to atenolol on hold, restarting as below -could be alcohol withdrawal -in combination with altered mental status and lactic acid >3 at admission, does raise suspicion for sepsis. UA still pending and will order blood culture. Sepsis appears least likely at this point (5) Hypertension Current Visit: No Status: Acute Code(s): I10 - ESSENTIAL (PRIMARY) HYPERTENSION SNOMED Code(s): 80958017 Comment: -hypertensive today, with diastolic blood pressure in range of hypertensive urgency -prn hydralazine -since patient has passed dysphagia screening, restarting home lisinopril and atenolol (6) Depression Current Visit: Yes Status: Acute Code(s): F32.9 - MAJOR DEPRESSIVE DISORDER , SINGLE EPISODE, UNSPECIFIED SNOMED Code(s): 83451356 Comment: -continue home wellbutrin, OK with Dr. Rivera (7) Lactic acidosis Current Visit: Yes Status: Acute Code(s): E87.2 - ACIDOSIS SNOMED Code(s) : 54883712 Comment: -resolved (8) DVT prophylaxis Current Visit: No Status: Acute Code(s): Z29.9 - ENCOUNTER FOR PROPHYLACTIC MEASURES, UNSPECIFIED SNOMED Code(s): 693437227 Comment: -lovenox (9) Full code status Current Visit: No Status: Acute Code(s): Z78.9 - OTHER SPECIFIED HEALTH STATUS SNOMED Code(s): 043863532 Status and Disposition: inpatient pending further improvement
[2019-08-04] MEDS ORDERED: hydrALAZINE IV* 20 MG/ML VIAL IV SLOW PU PRN ×4 (13:36→18:53)
[2019-08-04] MEDS ORDERED: Diazepam INJ CARPUJECT* 5 MG/ML IV ONE ×2 (13:49→15:00)
[2019-08-04] MEDS ORDERED: Enoxaparin(*) 40 MG/0.4 ML SYR SUBCUT SCH (14:00)
[2019-08-04] MEDS: levETIRAcetam 500 MG IVPREMIX* 500 MG/100 ML BAG IV SCH (17:23)
[2019-08-04] MEDS ORDERED: Lisinopril TAB* 10 MG PO ONE (17:50)
--- NOTE | 2019-08-04 18:15 | PN ---
Subjective Date of Service: 08/04/19 Length of Stay: 1 Days Neurology is following for confusion and visual disturbance. Interval History: He appears to be more awake and conversing, but still has significant cognitive deficits. He answers "I don't know" to a lot of the questions. He denied any headaches. He denied visual disturbance but clearly has severe visual deficits. He has bilateral upper more than lower extremity weakness and stiffness. MRI brain without contrast completed on 08/04/2019: diffuse area of restricted diffusion and T2 mostly involving the occipital, parietal, and frontal regions. There are areas of hypointensity on ADC correlating with the DWI changes. This can be atypically seen with PRES. Other differential diagnosis is stroke. CTA head and neck: No LVO. The right INSURANCE PREMIUM AUDITOR appears to be supplied by the anterior circulation. Review of Systems: Denied CP, SOB, palpitations, or headaches. Objective Active Medications: Acetaminophen (Tylenol Tab*) 650 mg PO Q4H PRN PRN Reason: MILD PAIN or TEMP > 100.4 Aspirin (Aspirin Tab*) 325 mg PO ONCE ONE Stop: 08/05/19 17:47 Aspirin (Aspirin Ec Tab*) 81 mg PO DAILY [facility] Atenolol (Tenormin Tab*) 100 mg PO QAM PEPE Atenolol (Tenormin Tab*) 50 mg PO BEDTIME PEPE Atorvastatin Calcium (Lipitor*) 40 mg PO 2100 [facility] Bupropion HCl (Bupropion Xl*) 300 mg PO DAILY [facility] Cyanocobalamin (Vitamin B12 Tab*) 1,000 mcg PO DAILY [facility] Enoxaparin Sodium (Lovenox(*)) 40 mg SUBCUT Q24H [facility] Last Admin: 08/04/19 16:02 Dose: 40 mg Folic Acid (Folvite Tab*) 1 mg PO DAILY [facility] Last Admin: 08/04/19 09:03 Dose: Not Given Hydralazine HCl (Apresoline Iv*) 5 mg IV SLOW PU Q4H PRN PRN Reason: BLOOD PRESSURE Last Admin: 08/04/19 16:02 Dose: 5 mg Levetiracetam (Keppra Iv Premix*) 500 mg in 100 mls @ 400 mls/hr IV Q12H [facility] Last Admin: 08/04/19 17:23 Dose: 400 mls/hr Lisinopril (Prinivil Tab*) 10 mg PO DAILY [facility] Lisinopril (Prinivil Tab*) 10 mg PO ONCE ONE Stop: 08/04/19 17:51 Lorazepam (Ativan Inj*) 0 - 3 mg IV PUSH .PER [facility] PROTOCOL PEPE; Protocol Miscellaneous (Ativan Pyxis Gill) 1 ea N/A .ATIVAN IV GILL PRN PRN Reason: PYXIS GILL Multivitamins/Minerals (Theragran/Minerals Tab*) 1 tab PO DAILY [facility] Last Admin: 08/04/19 09:03 Dose: Not Given Ondansetron HCl (Zofran Inj*) 4 mg IV Q4H PRN PRN Reason: NAUSEA/VOMITING Thiamine HCl (Vitamin B-1 Tab*) 100 mg PO DAILY [facility] Vital Signs 08/03/19 08/03/19 08/03/19 18:19 18:34 18:49 Temperature Pulse Rate 109 101 103 Respiratory 14 15 13 Rate Blood Pressure 130/102 164/121 168/137 (mmHg) O2 Sat by Pulse 95 94 97 Oximetry 08/03/19 08/03/19 08/03/19 19:00 19:04 19:19 Temperature Pulse Rate 105 106 106 Respiratory 13 17 16 Rate Blood Pressure 157/118 160/133 (mmHg) O2 Sat by Pulse 94 94 96 Oximetry 08/03/19 08/03/19 08/03/19 19:34 19:49 20:00 Temperature Pulse Rate 125 106 121 Respiratory 18 13 18 Rate Blood Pressure 157/122 160/126 (mmHg) O2 Sat by Pulse 100 97 99 Oximetry 08/03/19 08/03/19 08/03/19 20:04 20:13 20:19 Temperature Pulse Rate 112 122 116 Respiratory 13 19 15 Rate Blood Pressure 183/132 168/123 174/127 (mmHg) O2 Sat by Pulse 97 85 97 Oximetry 08/03/19 08/03/19 08/03/19 20:34 20:49 21:01 Temperature Pulse Rate 121 108 118 Respiratory 19 12 19 Rate Blood Pressure 170/127 171/108 (mmHg) O2 Sat by Pulse 99 98 97 Oximetry 08/03/19 08/03/19 08/03/19 21:04 21:25 21:30 Temperature 98.6 F 98.4 F Pulse Rate 111 89 112 Respiratory 20 16 14 Rate Blood Pressure 175/128 169/103 152/100 (mmHg) O2 Sat by Pulse 96 95 94 Oximetry 08/03/19 08/04/19 08/04/19 23:15 01:30 03:15 Temperature 98.2 F 97.7 F 98.6 F Pulse Rate 110 99 103 Respiratory 18 18 16 Rate Blood Pressure 168/109 173/116 137/110 (mmHg) O2 Sat by Pulse 96 99 98 Oximetry 08/04/19 08/04/19 08/04/19 05:30 07:00 07:15 Temperature 99 F 97.5 F Pulse Rate 111 110 Respiratory 18 18 18 Rate Blood Pressure 153/105 155/113 (mmHg) O2 Sat by Pulse 97 94 Oximetry 08/04/19 08/04/19 08/04/19 09:00 11:00 11:15 Temperature 98.0 F Pulse Rate 116 Respiratory 18 16 16 Rate Blood Pressure 157/106 (mmHg) O2 Sat by Pulse 97 Oximetry 08/04/19 08/04/19 08/04/19 13:00 14:32 16:23 Temperature 98.4 F Pulse Rate 104 Respiratory 18 20 12 Rate Blood Pressure 175/115 (mmHg) O2 Sat by Pulse 96 Oximetry 08/04/19 17:02 Temperature Pulse Rate Respiratory 18 Rate Blood Pressure (mmHg) O2 Sat by Pulse Oximetry Intake and Output Last 24 Hours 08/02/19 08/03/19 08/04/19 08/05/19 06:59 06:59 06:59 06:59 Intake Total 1000 255 Output Total 0 Balance 1000 255 Weight 141 lb 14.4 oz 141 lb 14.4 oz Intake: IV Fluids 1000 255 Oral 0 0 Output: Urine 0 Other: Estimated Void Medium # Voids 2 Oxygen Devices in Use Now: None Neurology Exam: General: Ill appearing man in no distress. HEENT: Normocephelic/atraumatic, sclera anicteric, mucous membranes moist Neck: Supple Chest: Clear to auscultation bilaterally Cardiovascular: Regular rate and rhythm without murmurs, rubs, gallops Extremities: No clubbing, cyanosis, or edema Neurological Findings: Awake, alert, and oriented to person, place, and time. He knew the president. When asked a complex question, he responds by " I don't know" Speech: Mild dysarthria. Cranial Nerve: PERRL, EOM intact, with slight dysconjugate gaze. He doesn't blink to eye threat. Visual anosognosia He can differentiate colors but not numbers. Tongue is symmetric bilaterally. Motor: bilateral upper extremity weakness in an upper motor neuronal pyramidal distribution (triceps and deltoids weaker than biceps). He is able to elevate both legs antigravity. Sensation: intact to LT/PP bilaterally upper and lower extremities Deep Tendon Reflex: 1+ in the uppers, 2+ knees, 0 at the ankles. Extensor plantar response bilaterally. Gait: deferred Result Diagrams: 08/04/19 06:16 08/04/19 06:16 Assessment/Plan Mr. Byron Randall is a 63-year-old man with history of multiple falls and alcohol abuse who presented [place] [facility] [place] 08/03/2019 with sudden onset confusion. The patient was found by a friend at home. Last known well was on 11:30 on 2019. He was found at 1530 on 08/03/2019. The patient had no complaints but appears irritable and confused. The patient's BP was significantly elevated on admission with SBP in the 230's and DBP in the 130's. I reviewed his previous progress reports since 2016 and noted that his BP has always been within low to normal range. The patient's examination was notable for disorientation, cortical blindness, and bilateral upper extremity weakness. CT and CTA head and neck did not show any acute infarction or LVO. MRI brain without contrast showed symmetrical, increase area of T2- hyperintensity, restricted diffusion with ADC correlation in the occipital, parietal and posterior frontal lobes. These changes are consistent with PRES. The area of restricted diffusion can also be seen in stroke, but the symmetry makes it less likely. CT cervical spine: moderate-to severe multilevel degenerative disc disease and foraminal stenosis. 1. Acute hypertensive encephalopathy, also known as reversible posterior encephalopathy (used to be called PRES). 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 The areas of restricted diffusion can also be seen in stroke, therefore, he was started on aspirin and atorvastatin therapy. Please note that we need to lower his BP close to normotensive range ( SBP 120-<160, DBP 80<100). He has no seizure activity on EEG. Continue levetiracetam 500 mg twice daily for 14 days (discontinue on 08/19/2019). He does not have any headaches or hemorrhage on CT to suspect cerebral venous thrombosis. He will need a repeat MRI in 14-30 days. Consult PT/OT/QUARTZ ORIENTATOR evaluation and treatment. If we cannot control his BP with IV or oral meds, then transfer to the ICU for nicardipine gtt. Agree with obtaining a TTE with bubble study. 2. Cervical spondylosis with radiculopathy. no evidence of myelopathy. He needs an MRI of the C spine. Agree with a soft cervical collar. I suspect his cervical spine disease is old and is related to the frequent falls his has had in the past. 3. History of alcohol abuse. Continue WAM protocol and thiamine 100 mg PO/IV daily. I will continue to follow. Discussed the case in detail with Dr. Zarco (radiology) and Ms. Neely.
[2019-08-04] MEDS ORDERED: Labetalol IV* 5 MG/ML 20 ML VIAL IV PUSH PRN ×2 (18:16→18:53)
[2019-08-04] MEDS ORDERED: Labetalol IV* 5 MG/ML 20 ML VIAL IV PUSH ONE (18:52)
[2019-08-04] MEDS ORDERED: LORazepam INJ* 2 MG/ML 1 ML VIAL IV PUSH ONE (18:57)
[2019-08-04] MEDS ORDERED: Lisinopril TAB* 10 MG ONE (19:03)
[2019-08-04] MEDS ORDERED: LORazepam INJ* 2 MG/ML 1 ML VIAL ONE (19:04)
[2019-08-04] MEDS ORDERED: Labetalol IV* 5 MG/ML 20 ML VIAL ONE (19:04)
[2019-08-04] MEDS: Atenolol TAB* 50 MG PO SCH (19:12)
[2019-08-04] MEDS ORDERED: NS 0.9% 1000 ML** 2,000 ML IV ONE (19:31)
[2019-08-04] MEDS ORDERED: NS 0.9% 1000 ML** 1,000 ML IV ONE (20:22)
[2019-08-04] MEDS ORDERED: Iohexol 350* (CONTRAST) 500 ML MDV IV ONE (20:44)
[2019-08-04] MEDS: Atorvastatin* 40 MG TAB PO SCH (20:57)
--- NOTE | 2019-08-04 21:00 | EEG ---
ELECTROENCEPHALOGRAPHY: DATE OF STUDY: 08/04/19 DATE READ: 08/04/19 MEDICATIONS: 1. Lovenox. 2. Vitamin B1. 3. Multivitamin. 4. Tylenol. 5. Ativan. 6. Zofran. DURATION OF THE [id number]. CLINICAL PROBLEM: Mr. Radnall is a 63-year-old man who appears to be confused and disoriented. This EEG was requested to evaluate for epileptiform abnormalities. CLINICAL STATE: Awake. REPORT: The background consisted of a mixed frequency slowing in the delta and theta range with appropriate organization and clearly defined anterior- posterior voltage. There was a poorly sustained normal waking background rhythm of 8 to 8/1- 2 Hz, which was symmetrical and showed normal reactivity. Anteriorly, there was an expected pattern of lower voltage, irregular, mixed faster frequencies. Hyperventilation and photic stimulation were not performed. Single electrode EKG showed sinus tachycardia with a rate of 110 beats per minute. Throughout the recording, there were no epileptiform discharges or electrographic seizures. CLINICAL IMPRESSION: This is a mildly abnormal awake EEG due to poorly sustained posterior dominant rhythm and diffuse polymorphic slowing. Otherwise , there was normal organization reactivity. These findings are suggestive of a very mild nonspecific diffuse encephalopathy. There were no focal or epileptiform abnormalities. [id number]/[facility] #: [id number] [facility]
[2019-08-04 21:42] LABS: Urine Appearance Clear; Urine Bilirubin Negative (Negative); Urine Blood Negative (Negative); Urine Color Yellow; Urine Glucose Negative (Negative); Urine Ketones 1+ (Negative); Urine Nitrite Negative (Negative); Urine Protein 1+(30 mg/dL) (Negative); Urine Specific Gravity 1.021 (1.010-1.030); Urine Urobilinogen Positive (Negative)
[2019-08-04 21:54] LABS: Urine Bacteria Absent (Absent); Urine Red Blood Cell Absent (Absent); Urine White Blood Cell Absent (Absent)
[2019-08-05] MEDS ORDERED: Enoxaparin(*) 60 MG/0.6 ML SYR SUBCUT SCH (01:00)
[2019-08-05] MEDS: levETIRAcetam 500 MG IVPREMIX* 500 MG/100 ML BAG IV SCH ×2 (03:17→16:58)
[2019-08-05 05:47] LABS: HDL Cholesterol 67.2 mg/dL
[2019-08-05] MEDS: Cyanocobalamin TAB* 500 MCG PO SCH (08:37)
[2019-08-05] MEDS: BuPROPion XL* 300 MG TAB.XL PO SCH (08:37)
[2019-08-05] MEDS: Folic Acid TAB* 1 MG PO SCH (08:37)
[2019-08-05] MEDS: Acetaminophen TAB* 325 MG PO PRN (08:37)
[2019-08-05] MEDS: Thiamine TAB* 100 MG TAB PO SCH (08:37)
[2019-08-05] MEDS: Atenolol TAB* 50 MG PO SCH ×2 (08:38→20:08)
[2019-08-05] MEDS: Multivitamins/Minerals TAB PO SCH (08:38)
[2019-08-05] MEDS ORDERED: Aspirin EC TAB* 81 MG TAB.EC PO SCH (09:00)
[2019-08-05] MEDS ORDERED: Lisinopril TAB* 10 MG PO SCH (09:00)
[2019-08-05] MEDS ORDERED: Lisinopril TAB* 10 MG PO ONE (09:09)
--- NOTE | 2019-08-05 09:13 | PN ---
Subjective Date of Service: 08/05/19 Interval History: Patient expresses discomfort with cervical collar but is unable to express where the collar is causing discomfort. His friend's phone number, Rhett, is written at bedside and he tells me he does not want me to call him at this time. However, later, Rhett came to the hospital and told nursing that the day prior to presentation, patient fell and hit his head on a coffee table. Nursing tells me he overall is answering questions more appropriately and at times seems minimally restless. Patient denies difficulty breathing, chest pain , abd pain. No c/o headache. Objective Active Medications: Acetaminophen (Tylenol Tab*) 650 mg PO Q4H PRN PRN Reason: MILD PAIN or TEMP > 100.4 Last Admin: 08/05/19 08:37 Dose: 650 mg Aspirin (Aspirin Tab*) 325 mg PO ONCE ONE Stop: 08/05/19 17:47 Aspirin (Aspirin Ec Tab*) 81 mg PO DAILY [facility] Last Admin: 08/05/19 08:37 Dose: 81 mg Atenolol (Tenormin Tab*) 100 mg PO QAM [facility] Last Admin: 08/05/19 08:38 Dose: 100 mg Atenolol (Tenormin Tab*) 50 mg PO BEDTIME [facility] Last Admin: 08/04/19 19:12 Dose: 50 mg Atorvastatin Calcium (Lipitor*) 40 mg PO 2100 [facility] Last Admin: 08/04/19 20:57 Dose: 40 mg Bupropion HCl (Bupropion Xl*) 300 mg PO DAILY [facility] Last Admin: 08/05/19 08:37 Dose: 300 mg Cyanocobalamin (Vitamin B12 Tab*) 1,000 mcg PO DAILY [facility] Last Admin: 08/05/19 08:37 Dose: 1,000 mcg Enoxaparin Sodium (Lovenox(*)) 60 mg SUBCUT Q12HR@0000,1200 [facility] Last Admin: 08/05/19 03:17 Dose: 60 mg Folic Acid (Folvite Tab*) 1 mg PO DAILY [facility] Last Admin: 08/05/19 08:37 Dose: 1 mg Hydralazine HCl (Apresoline Iv*) 10 mg IV SLOW PU Q4H PRN PRN Reason: Blood Pressure breakthrough Levetiracetam (Keppra Iv Premix*) 500 mg in 100 mls @ 400 mls/hr IV Q12H [facility] Last Admin: 08/05/19 03:17 Dose: 400 mls/hr Labetalol HCl (Trandate Iv*) 20 mg IV PUSH Q4H PRN PRN Reason: BLOOD PRESSURE Lisinopril (Prinivil Tab*) 20 mg PO DAILY [facility] Lisinopril (Prinivil Tab*) 10 mg PO ONCE ONE Stop: 08/05/19 09:10 Lorazepam (Ativan Inj*) 0 - 3 mg IV PUSH .PER [facility] PROTOCOL [facility]; Protocol Miscellaneous (Ativan Pyxis Bates) 1 ea N/A .ATIVAN IV BATES PRN PRN Reason: PYXIS BATES Multivitamins/Minerals (Theragran/Minerals Tab*) 1 tab PO DAILY [facility] Last Admin: 08/05/19 08:38 Dose: 1 tab Ondansetron HCl (Zofran Inj*) 4 mg IV Q4H PRN PRN Reason: NAUSEA/VOMITING Thiamine HCl (Vitamin B-1 Tab*) 100 mg PO DAILY [facility] Last Admin: 08/05/19 08:37 Dose: 100 mg Vital Signs - 8 hr 08/05/19 08/05/19 08/05/19 01:18 03:13 05:16 Temperature 97.3 F 98.7 F 97.6 F Pulse Rate 80 95 91 Respiratory 18 18 16 Rate Blood Pressure 156/100 160/110 146/96 (mmHg) O2 Sat by Pulse 99 97 100 Oximetry 08/05/19 07:29 Temperature 97.8 F Pulse Rate 91 Respiratory 16 Rate Blood Pressure 138/98 (mmHg) O2 Sat by Pulse 97 Oximetry Oxygen Devices in Use Now: None Appearance: Thin, black male laying in bed, appearing comfortable and in minimal distress at times; cervical collar in place Eyes: No Scleral Icterus, - - PERRL, visual jim to confrontation full however it is unclear if this is confabulation Ears/Nose/Mouth/Throat: Mucous Membranes Moist Neck: Trachea Midline Respiratory: Symmetrical Chest Expansion and Respiratory Effort, Clear to Auscultation Cardiovascular: RRR Abdominal: - - abd soft, nontender, nondistended Extremities: No Edema, No Clubbing, Cyanosis Skin: No Rash or Ulcers Neurological: - - patient unable to express if sensation symmetrical; fact checker strength 2/5 on left, 0/5 on right; alert and oriented to self and location; strength 5/5 in bilateral legs Result Diagrams: 08/04/19 06:16 08/04/19 06:16 Diagnostic Imaging: MRI BRAIN IMPRESSION: LARGE BILATERAL SYMMETRIC AREAS OF RESTRICTED DIFFUSION PRESENT WITHIN THE OCCIPITAL PARIETAL AND POSTERIOR FRONTAL LOBES MOST CONSISTENT WITH POSTERIOR REVERSIBLE ENCEPHALOPATHY SYNDROME LESS LIKELY INFARCTS. Assess/Plan/Problems-Billing Assessment: 63 yo black male with PMHx alcohol use, HTN, tobacco use presents with altered mental status. - Patient Problems (1) Altered mental status Current Visit: Yes Status: Acute Code(s): R41.82 - ALTERED MENTAL STATUS, UNSPECIFIED SNOMED Code(s): 437764690 Comment: -presents with altered mental status per friend who called EMS -appears to be following more commands today than yesterday, but is still not able to follow some simple commands -CT brain and CTA head/neck without acute findings; ammonia wnl -MRI demonstrates findings consistent with PRES, though less likely bilateral infarcts; controlling HTN as below, continue keppra, continue statin per Dr. Rivera -seizure precautions -appreciate Neurology consult -EEG demonstrating diffuse, nonspecific, mild encephalopathy -UDS pending -alcohol use possibly a contributing factor; not scoring for withdrawal symptoms on WAM to receive ativan; initially treating empirically for wernicke' s with IV thiamine, though considering PRES most likely will change to po (2) Bilateral arm weakness Current Visit: Yes Status: Acute Code(s): R29.898 - OTH SYMPTOMS AND SIGNS INVOLVING THE MUSCULOSKELETAL SYSTEM SNOMED Code(s): 34137919718521564 Comment: -MRI brain most likely PRES and less likely bilateral CVA -urinary incontinence, but rectal tone intact -possibly PRES could cause these findings -sensation intact per patient -CT c-spine with severe stenosis at multiple levels -MRI c-spine pending -patient has hx of frequent falls at home while intoxicated; unclear history leading up to this hospitalization. Will order cervical collar until MRI can be completed -minimally improved today as patient is able to fact checker on left hand (3) Pulmonary emboli Current Visit: Yes Status: Acute Code(s): I26.99 - OTHER PULMONARY EMBOLISM WITHOUT ACUTE COR PULMONALE SNOMED Code(s): 89157543 Comment: -pulmonary emboli in right lower lobe -starting eliquis -I do have concern for starting this patient on anticoagulation due to his history of frequent falls and alcohol use, though he will likely be going to subacute rehab where he will hopefully have closer monitoring and a lower likelihood of falling. -patient has HAS-BLED score of 2, indicating 4.1% risk of major bleeding. At this time, the risk for untreated PEs outweights the risk of major bleeding. -considering the small likelihood that he had bilateral CVA, TTE with bubble study is pending (4) Hypertension Current Visit: No Status: Acute Code(s): I10 - ESSENTIAL (PRIMARY) HYPERTENSION SNOMED Code(s): 10226746 Comment: -frequently hypertensive but overall within goal range overnight -continue prn labetalol and prn hydralazine -increasing home lisinopril, continue home atenolol -it is imperative we treat his HTN considering his most likely diagnosis at this time is PRES (5) Alcohol use Current Visit: Yes Status: Acute Code(s): Z72.89 - OTHER PROBLEMS RELATED TO LIFESTYLE SNOMED Code(s): 630104 Comment: -known hx of alcohol use -serum alcohol 87 at admission -WA protocol has not scored to need ativan yet for withdrawal sxs -continue WA protocol (6) Tachycardia Current Visit: Yes Status: Acute Code(s): R00.0 - TACHYCARDIA, UNSPECIFIED SNOMED Code(s): 4112422 Comment: -resolved today -likely related to PE which was demonstrated on CTA chest yesterday evening, as well as combination of dehydration and alcohol withdrawal (7) Depression Current Visit: Yes Status: Acute Code(s): F32.9 - MAJOR DEPRESSIVE DISORDER , SINGLE EPISODE, UNSPECIFIED SNOMED Code(s): 39395481 Comment: -continue home wellbutrin, OK with Dr. Rivera (8) DVT prophylaxis Current Visit: No Status: Acute Code(s): Z29.9 - ENCOUNTER FOR PROPHYLACTIC MEASURES, UNSPECIFIED SNOMED Code(s): 115580013 Comment: -d/c lovenox, starting eliquis (9) Full code status Current Visit: No Status: Acute Code(s): Z78.9 - OTHER SPECIFIED HEALTH STATUS SNOMED Code(s): 634207591 Status and Disposition: inpatient pending further improvement
[2019-08-05] MEDS: Apixaban* 5 MG TAB PO SCH ×2 (10:33→20:08)
[2019-08-05] MEDS: Labetalol IV* 5 MG/ML 20 ML VIAL IV PUSH PRN ×2 (13:47→22:17)
--- NOTE | 2019-08-05 15:41 | PN ---
Subjective Date of Service: 08/05/19 Length of Stay: 2 Days Neurology is following to evaluate the patient's weakness and confusion. Interval History: He seems to be more awake and alert today. He doesn't like the cervical collar. He has trouble expressing himself and just responds "I don't know" and "I guess." He still appears to have visual deficits, but isn't complaining of any. Overnight, his friend did come to visit and reported that the patient had a fall the night prior to admission. Imaging studies: CTA Chest completed on 08/04: Acute PE in the subsegmental pulmonary arteries supplying the posterior basal segment of the right lower lobe. MRI brain without contrast completed on 08/04/2019: diffuse area of restricted diffusion and T2 mostly involving the occipital, parietal, and frontal regions. There are areas of hypointensity on ADC correlating with the DWI changes. This can be atypically seen with PRES. Other differential diagnosis is stroke. CTA head and neck: No LVO. 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 Review of Systems: Denied CP, SOB, or palpitations. Denied headaches or visual disturbance. Objective Active Medications: Acetaminophen (Tylenol Tab*) 650 mg PO Q4H PRN PRN Reason: MILD PAIN or TEMP > 100.4 Last Admin: 08/05/19 08:37 Dose: 650 mg Apixaban (Eliquis*) 10 mg PO BID [facility] Stop: 08/12/19 09:59 Last Admin: 08/05/19 10:33 Dose: 10 mg Atenolol (Tenormin Tab*) 100 mg PO QAM [facility] Last Admin: 08/05/19 08:38 Dose: 100 mg Atenolol (Tenormin Tab*) 50 mg PO BEDTIME [facility] Last Admin: 08/04/19 19:12 Dose: 50 mg Atorvastatin Calcium (Lipitor*) 40 mg PO 2100 [facility] Last Admin: 08/04/19 20:57 Dose: 40 mg Bupropion HCl (Bupropion Xl*) 300 mg PO DAILY [facility] Last Admin: 08/05/19 08:37 Dose: 300 mg Cyanocobalamin (Vitamin B12 Tab*) 1,000 mcg PO DAILY [facility] Last Admin: 08/05/19 08:37 Dose: 1,000 mcg Folic Acid (Folvite Tab*) 1 mg PO DAILY [facility] Last Admin: 08/05/19 08:37 Dose: 1 mg Hydralazine HCl (Apresoline Iv*) 10 mg IV SLOW PU Q4H PRN PRN Reason: Blood Pressure breakthrough Levetiracetam (Keppra Iv Premix*) 500 mg in 100 mls @ 400 mls/hr IV Q12H [facility] Last Admin: 08/05/19 03:17 Dose: 400 mls/hr Labetalol HCl (Trandate Iv*) 20 mg IV PUSH Q4H PRN PRN Reason: BLOOD PRESSURE Last Admin: 08/05/19 13:47 Dose: 20 mg Lisinopril (Prinivil Tab*) 20 mg PO DAILY [facility] Lorazepam (Ativan Inj*) 0 - 3 mg IV PUSH .PER [facility] PROTOCOL [facility]; Protocol Miscellaneous (Ativan Pyxis Gill) 1 ea N/A .ATIVAN IV GILL PRN PRN Reason: PYXIS GILL Multivitamins/Minerals (Theragran/Minerals Tab*) 1 tab PO DAILY [facility] Last Admin: 08/05/19 08:38 Dose: 1 tab Ondansetron HCl (Zofran Inj*) 4 mg IV Q4H PRN PRN Reason: NAUSEA/VOMITING Thiamine HCl (Vitamin B-1 Tab*) 100 mg PO DAILY [facility] Last Admin: 08/05/19 08:37 Dose: 100 mg Vital Signs 08/05/19 08/05/19 08/05/19 10:02 13:00 13:55 Temperature 97.4 F 97.4 F Pulse Rate 94 78 83 Respiratory 16 16 Rate Blood Pressure 126/88 134/92 136/90 (mmHg) O2 Sat by Pulse 96 99 Oximetry Intake and Output Last 24 Hours 08/03/19 08/04/19 08/05/19 08/06/19 06:59 06:59 06:59 06:59 Intake Total 1000 275 480 Output Total 0 1050 Balance 1000 -775 480 Weight 141 lb 14.4 oz 141 lb 14.4 oz Intake: IV Fluids 1000 255 Oral 0 20 480 Output: Urine 0 0 Deluna 1050 Other: Estimated Void Large Medium # Voids 2 Oxygen Devices in Use Now: None Neurology Exam: General: Ill appearing man in no distress. HEENT: Normocephelic/atraumatic, sclera anicteric, mucous membranes moist Neck: Supple. [place] J Collar on. Chest: Clear to auscultation bilaterally Cardiovascular: Regular rate and rhythm without murmurs, rubs, gallops Extremities: No clubbing, cyanosis, or edema Neurological Findings: Awake, alert, and oriented to person, place, and time. He knew the president. When asked a complex question, he responds by " I don't know" Speech: Mild dysarthria. Cranial Nerve: PERRL, EOM intact, with slight dysconjugate gaze. He doesn't blink to eye threat. Visual anosognosia. He can differentiate colors but not numbers. He guesses the number, and at times, the guess is correct. Tongue is symmetric bilaterally. Motor: He is spontaneously moving his left arm. He cannot move the right arm ( complete paralysis). He has normal movement of the left leg and 4/5 weakness on the right leg. Sensation: intact to LT/PP bilaterally upper and lower extremities Deep Tendon Reflex: 1+ in the uppers, 2+ knees, 0 at the ankles. Extensor plantar response on the right Gait: deferred Result Diagrams: 08/04/19 06:16 08/04/19 06:16 Microbiology and Other Data: Microbiology 08/04/19 10:47 Aerobic Blood Culture - Preliminary Blood Venous No Growth Day 1 Anaerobic Blood Culture - Preliminary No Growth Day 1 08/04/19 10:47 Aerobic Blood Culture - Preliminary Blood Venous No Growth Day 1 Anaerobic Blood Culture - Preliminary No Growth Day 1 Diagnostic Imaging: MRI BRAIN IMPRESSION: LARGE BILATERAL SYMMETRIC AREAS OF RESTRICTED DIFFUSION PRESENT WITHIN THE OCCIPITAL PARIETAL AND POSTERIOR FRONTAL LOBES MOST CONSISTENT WITH POSTERIOR REVERSIBLE ENCEPHALOPATHY SYNDROME LESS LIKELY INFARCTS. Assessment/Plan Mr. Byron Randall is a 63-year-old man with history of multiple falls and alcohol abuse who presented to [facility] [place] [facility] on 08/03/2019 with sudden onset confusion. The patient was found by a friend at home. Last known well was on 11:30 on 2019. He was found at 1530 on 08/03/2019. The patient had no complaints, but appeared irritable and confused. The patient's BP was significantly elevated on admission with SBP in the 230's and DBP in the 130's. I reviewed his previous progress reports since 2016 and noted that his BP has always been within low to normal range. The patient's examination was notable for disorientation, cortical blindness, and bilateral upper extremity weakness. Today, the patient looks slightly better but still with significant cognitive deficit and right arm paralysis. CT and CTA head and neck did not show any acute infarction or LVO. MRI brain without contrast showed symmetrical, increase area of T2- hyperintensity, restricted diffusion with ADC correlation in the occipital, parietal and posterior frontal lobes. These changes are consistent with PRES. The area of restricted diffusion can also be seen in stroke, but the symmetry makes it less likely. CT cervical spine: moderate-to severe multilevel degenerative disc disease and foraminal stenosis. CTA of the chest showed a PE. 1. 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 Although the patient's weakness on the left improved, I am concerned about the right arm paralysis. I spoke with Dr. Dasilva and an MRI of the cervical spine to rule out spinal cord compression will be done tomorrow. I also discussed the MRI brain with Dr. Dasilva who agreed that this is most likely PRES rather than multifocal embolic strokes. 2. Cervical spondylosis with radiculopathy and spinal stenosis- evaluate for spinal cord compression Recommendations: - Continue SBP 120-<160, DBP 80<100. He has no seizure activity on EEG. - Continue levetiracetam 500 mg twice daily for 14 days (discontinue on 2019). - He does not have any headaches or hemorrhage on CT to suspect cerebral venous thrombosis. - - He will need a repeat MRI in 14-30 days. - Consult PT/[employer] evaluation and treatment. - If we cannot control his BP with IV or oral meds, then transfer to the ICU for nicardipine gtt. - Agree with obtaining a TTE with bubble study. 2. Cervical spondylosis with radiculopathy. no evidence of myelopathy. He needs an MRI of the C spine. Agree with a cervical collar. I reviewed the case with 3. History of alcohol abuse. Continue WAM protocol and thiamine 100 mg PO/IV daily. Dr. Lebron is covering the neurology service tomorrow. Please contact us for any questions.
[2019-08-05] MEDS ORDERED: Aspirin TAB* 325 MG PO ONE (17:46)
[2019-08-05 19:13] LABS: Urine Benzodiazepine Screen None Detected (None Detect); Urine Opiates Screen None Detected (None Detect)
[2019-08-05] MEDS: Atorvastatin* 40 MG TAB PO SCH (20:09)
[2019-08-05] MEDS: LORazepam INJ* 2 MG/ML 1 ML VIAL IV PUSH SCH (22:53)
[2019-08-05] MEDS: hydrALAZINE IV* 20 MG/ML VIAL IV SLOW PU PRN (22:58)
[2019-08-06] MEDS: LORazepam INJ* 2 MG/ML 1 ML VIAL IV PUSH SCH ×4 (01:09→23:43)
[2019-08-06] MEDS: Labetalol IV* 5 MG/ML 20 ML VIAL IV PUSH PRN ×2 (01:18→21:33)
[2019-08-06] MEDS: levETIRAcetam 500 MG IVPREMIX* 500 MG/100 ML BAG IV SCH ×2 (03:23→16:37)
[2019-08-06] MEDS: hydrALAZINE IV* 20 MG/ML VIAL IV SLOW PU PRN (03:38)
[2019-08-06] MEDS: Acetaminophen TAB* 325 MG PO PRN (06:01)
[2019-08-06 06:47] LABS: ABS Basophils 0.1 10^3/ul (0-0.2); ABS Eosinophils 0.1 10^3/ul (0-0.6); ABS Lymphocytes 1.3 10^3/ul (1.0-4.8); ABS Monocytes 0.9 10^3/ul (0-0.8); ABS Neutrophils 8.4 10^3/ul (1.5-7.7); Eosinophil % 1.2 %; Hematocrit 38 % (42-52); Hemoglobin 13.1 g/dL (14.0-18.0); Lymphocyte % 11.8 %; Mean Corpuscular HGB Conc 35 g/dL (31-36); Mean Corpuscular Hemoglobin 33 pg (27-31); Mean Corpuscular Volume 93 fL (80-94); Platelet Count 174 10^3/uL (150-450); Red Blood Count 4.04 10^6 /uL (4.18-5.48); Red Cell Distribution Width 13 % (10-15); White Blood Count 10.7 10^3/uL (3.5-10.8)
[2019-08-06 07:09] LABS: BUN/Creatinine Ratio 16.7 (8-20); Calcium 8.9 mg/dL (8.6-10.3); EGFR African American 134.3 (>60); Potassium 3.5 mmol/L (3.5-5.0)
[2019-08-06] MEDS ORDERED: Diazepam INJ CARPUJECT* 5 MG/ML IV PRN (09:14)
[2019-08-06] MEDS ORDERED: Labetalol IV* 5 MG/ML 20 ML VIAL IV PUSH PRN (09:15)
[2019-08-06] MEDS ORDERED: hydrALAZINE IV* 20 MG/ML VIAL IV SLOW PU PRN (09:15)
[2019-08-06] MEDS: Folic Acid TAB* 1 MG PO SCH (09:46)
[2019-08-06] MEDS: Multivitamins/Minerals TAB PO SCH (09:46)
[2019-08-06] MEDS: Lisinopril TAB* 10 MG PO SCH (09:47)
[2019-08-06] MEDS: Thiamine TAB* 100 MG TAB PO SCH (09:47)
[2019-08-06] MEDS: Atenolol TAB* 50 MG PO SCH ×2 (09:47→20:06)
[2019-08-06] MEDS: Apixaban* 5 MG TAB PO SCH ×2 (09:47→20:06)
[2019-08-06] MEDS: BuPROPion XL* 300 MG TAB.XL PO SCH (09:47)
[2019-08-06] MEDS: amLODIPine TAB* 5 MG PO SCH (09:52)
--- NOTE | 2019-08-06 10:06 | PN ---
Subjective Date of Service: 08/06/19 Interval History: Patient is resting comfortably at time of admission. He has no complaints. Denies difficulty breathing, chest pain, headache. Nursing reports overnight patient was significantly agitated and scoring on WAM , requiring ativan. He now has a safety monitor due to attempting to get out of bed. Objective Active Medications: Acetaminophen (Tylenol Tab*) 650 mg PO Q4H PRN PRN Reason: MILD PAIN or TEMP > 100.4 Last Admin: 08/06/19 06:01 Dose: 650 mg Amlodipine Besylate (Norvasc Tab*) 5 mg PO DAILY [facility] Last Admin: 08/06/19 09:52 Dose: 5 mg Apixaban (Eliquis*) 10 mg PO BID [facility] Stop: 08/12/19 09:59 Last Admin: 08/06/19 09:47 Dose: 10 mg Atenolol (Tenormin Tab*) 100 mg PO QAM [facility] Last Admin: 08/06/19 09:47 Dose: 100 mg Atenolol (Tenormin Tab*) 50 mg PO BEDTIME [facility] Last Admin: 08/05/19 20:08 Dose: 50 mg Atorvastatin Calcium (Lipitor*) 40 mg PO 2100 [facility] Last Admin: 08/05/19 20:09 Dose: 40 mg Bupropion HCl (Bupropion Xl*) 300 mg PO DAILY [facility] Last Admin: 08/06/19 09:47 Dose: 300 mg Cyanocobalamin (Vitamin B12 Tab*) 1,000 mcg PO DAILY [facility] Last Admin: 08/05/19 08:37 Dose: 1,000 mcg Diazepam (Valium Carpuject*) 2 mg IV ONCE PRN PRN Reason: agitation for MRI Last Admin: 08/06/19 09:44 Dose: 2 mg Folic Acid (Folvite Tab*) 1 mg PO DAILY [facility] Last Admin: 08/06/19 09:46 Dose: 1 mg Hydralazine HCl (Apresoline Iv*) 10 mg IV SLOW PU Q4H PRN PRN Reason: BLOOD PRESSURE Levetiracetam (Keppra Iv Premix*) 500 mg in 100 mls @ 400 mls/hr IV Q12H [facility] Last Admin: 08/06/19 03:23 Dose: 400 mls/hr Labetalol HCl (Trandate Iv*) 20 mg IV PUSH Q4H PRN PRN Reason: blood pressure breakthrough Lisinopril (Prinivil Tab*) 20 mg PO DAILY [facility] Last Admin: 08/06/19 09:47 Dose: 20 mg Lorazepam (Ativan Inj*) 0 - 3 mg IV PUSH .PER [facility] PROTOCOL [facility]; Protocol Last Admin: 08/06/19 03:22 Dose: 1.5 mg Miscellaneous (Ativan Pyxis Bates) 1 ea N/A .ATIVAN IV BATES PRN PRN Reason: PYXIS BATES Multivitamins/Minerals (Theragran/Minerals Tab*) 1 tab PO DAILY [facility] Last Admin: 08/06/19 09:46 Dose: 1 tab Ondansetron HCl (Zofran Inj*) 4 mg IV Q4H PRN PRN Reason: NAUSEA/VOMITING Thiamine HCl (Vitamin B-1 Tab*) 100 mg PO DAILY [facility] Last Admin: 08/06/19 09:47 Dose: 100 mg Vital Signs - 8 hr 08/06/19 08/06/19 08/06/19 02:00 02:10 03:00 Temperature 97.6 F Pulse Rate 98 Respiratory 17 18 17 Rate Blood Pressure 143/90 (mmHg) O2 Sat by Pulse 97 Oximetry 08/06/19 08/06/19 08/06/19 03:10 03:13 03:17 Temperature 97 F Pulse Rate 104 Respiratory 19 18 Rate Blood Pressure 152/108 150/100 (mmHg) O2 Sat by Pulse 95 Oximetry 08/06/19 08/06/19 08/06/19 03:22 03:35 04:10 Temperature Pulse Rate Respiratory 18 18 15 Rate Blood Pressure (mmHg) O2 Sat by Pulse Oximetry 08/06/19 08/06/19 08/06/19 04:25 04:38 04:55 Temperature Pulse Rate Respiratory 15 16 16 Rate Blood Pressure (mmHg) O2 Sat by Pulse Oximetry 08/06/19 08/06/19 08/06/19 05:03 05:10 05:25 Temperature 97.2 F Pulse Rate 92 Respiratory 18 16 18 Rate Blood Pressure 136/97 (mmHg) O2 Sat by Pulse 97 Oximetry 08/06/19 08/06/19 08/06/19 05:54 06:10 06:25 Temperature Pulse Rate Respiratory 18 16 16 Rate Blood Pressure (mmHg) O2 Sat by Pulse Oximetry 08/06/19 08/06/1908/06/20 07:00 07:12 07:36 Temperature 96.9 F Pulse Rate 87 Respiratory 16 16 20 Rate Blood Pressure 114/78 (mmHg) O2 Sat by Pulse 99 Oximetry 08/06/19 08/06/19 09:18 09:44 Temperature Pulse Rate Respiratory 22 14 Rate Blood Pressure (mmHg) O2 Sat by Pulse Oximetry Oxygen Devices in Use Now: None Appearance: Thin, black male, laying in bed, appearing comfortable and in NAD Eyes: No Scleral Icterus, - - PERRL Ears/Nose/Mouth/Throat: Mucous Membranes Moist Neck: Trachea Midline, - - kwethl[place] j collar in place Respiratory: Symmetrical Chest Expansion and Respiratory Effort, Clear to Auscultation Cardiovascular: NL Sounds; No Murmurs; No JVD, RRR Abdominal: - - abd soft, nontender, nondistended Neurological: - - able to independently flex/extend left elbow but strength is 1 /5; L radio commentator strength remains 2/5; remains unable to move RUE; tells me sensation bilaterally intact and symmetrical; alert and oriented to self and location; strength 5/5 bilateral in dorsiflexion and plantar flexion Result Diagrams: 08/06/19 06:29 08/06/19 06:29 Microbiology and Other Data: Microbiology 08/04/19 10:47 Aerobic Blood Culture - Preliminary Blood Venous No Growth Day 1 Anaerobic Blood Culture - Preliminary No Growth Day 1 08/04/19 10:47 Aerobic Blood Culture - Preliminary Blood Venous No Growth Day 1 Anaerobic Blood Culture - Preliminary No Growth Day 1 Diagnostic Imaging: MRI BRAIN IMPRESSION: LARGE BILATERAL SYMMETRIC AREAS OF RESTRICTED DIFFUSION PRESENT WITHIN THE OCCIPITAL PARIETAL AND POSTERIOR FRONTAL LOBES MOST CONSISTENT WITH POSTERIOR REVERSIBLE ENCEPHALOPATHY SYNDROME LESS LIKELY INFARCTS. Assess/Plan/Problems-Billing Assessment: 63 yo black male with PMHx alcohol use, HTN, tobacco use presents with altered mental status. - Patient Problems (1) Altered mental status Current Visit: Yes Status: Acute Code(s): R41.82 - ALTERED MENTAL STATUS, UNSPECIFIED SNOMED Code(s): 904181161 Comment: -presents with altered mental status per friend who called EMS -CT brain and CTA head/neck without acute findings; ammonia wnl -MRI brain demonstrates findings most consistent with PRES, though less likely bilateral infarcts; controlling HTN as below, continue keppra, continue statin per Dr. Rivera -seizure precautions -appreciate Neurology consult -EEG demonstrating diffuse, nonspecific, mild encephalopathy -UDS positive only for coaine, though unfortunately delayed urine collection until 08/05/19 -alcohol use possibly a contributing factor; not scoring for withdrawal symptoms on WAM to receive ativan; initially treating empirically for wernicke' s with IV thiamine, though considering PRES most likely will change to po -appears near baseline mental status, though does now have sxs of withdrawal and is more agitated intermittently (2) Bilateral arm weakness Current Visit: Yes Status: Acute Code(s): R29.898 - OTH SYMPTOMS AND SIGNS INVOLVING THE MUSCULOSKELETAL SYSTEM SNOMED Code(s): 51980975299850333 Comment: -MRI brain most likely PRES and less likely bilateral CVA -urinary incontinence, but rectal tone intact -sensation intact per patient, though he is poor historian; LUE with improved strength in radio commentator today and more ability to move LUE -CT c-spine with severe stenosis at multiple levels -MRI c-spine with spinal cord flattening and thecal sac flattening; consulting Dr. Covington -patient has hx of frequent falls at home while intoxicated; unclear history leading up to this hospitalization. Will continue cervical collar until eval by Dr. Covington -will order Xrays of right shoulder, humerus, elbow considering known fall per friend (3) Pulmonary emboli Current Visit: Yes Status: Acute Code(s): I26.99 - OTHER PULMONARY EMBOLISM WITHOUT ACUTE COR PULMONALE SNOMED Code(s): 52285862 Comment: -pulmonary emboli in right lower lobe -started eliquis -I do have concern for starting this patient on anticoagulation due to his history of frequent falls and alcohol use, though he will likely be going to subacute rehab where he will hopefully have closer monitoring and a lower likelihood of falling. -patient has HAS-BLED score of 2, indicating 4.1% risk of major bleeding. At this time, the risk for untreated PEs outweights the risk of major bleeding. -considering the small likelihood that he had bilateral CVA, TTE with bubble study is pending (4) Hypertension Current Visit: No Status: Acute Code(s): I10 - ESSENTIAL (PRIMARY) HYPERTENSION SNOMED Code(s): 91568414 Comment: -frequently hypertensive but overall within goal range overnight -continue prn labetalol and prn hydralazine -continue increased lisinopril, continue home atenolol, started amlodipine today (5) Alcohol use Current Visit: Yes Status: Acute Code(s): Z72.89 - OTHER PROBLEMS RELATED TO LIFESTYLE SNOMED Code(s): 479768 Comment: -known hx of alcohol use -serum alcohol 87 at admission -withdrawl sxs worsened O/N requiring ativan per [place] protocol, continue protocol (6) Depression Current Visit: Yes Status: Acute Code(s): F32.9 - MAJOR DEPRESSIVE DISORDER , SINGLE EPISODE, UNSPECIFIED SNOMED Code(s): 49498101 Comment: -continue home wellbutrin, OK with Dr. Rivera (7) DVT prophylaxis Current Visit: No Status: Acute Code(s): Z29.9 - ENCOUNTER FOR PROPHYLACTIC MEASURES, UNSPECIFIED SNOMED Code(s): 521932467 Comment: -d/c lovenox, starting eliquis (8) Full code status Current Visit: No Status: Acute Code(s): Z78.9 - OTHER SPECIFIED HEALTH STATUS SNOMED Code(s): 109274413 Status and Disposition: inpatient pending further improvement, anticipate VALERIE at discharge
--- NOTE | 2019-08-06 13:58 | ECHO ---
*[facility]* [place] [address] Fax #: [phone] Transthoracic Echocardiogram Patient: Byron Bernal : 1955 Study Date: 08/06/2019 Age: 63 Gender: M HR: 82 bpm Height: 72 in /182.9 cm BSA: 1.84 m^2 Weight: 140.7 lb /64 kg BMI: 19.1 kg/m^2 *Icu Clerk: * Rosemarie Pineda [facility] *Referring Physician: * O'Catalina Lopez *Reading Physician: * Alfred Phan MD Indications: CVA. History: Risk factors: Current tobacco use. ETOH abuse. Hypertension. Conclusions Summary: - Left ventricle: Systolic function is normal. The estimated ejection fraction is 60-65%. Although no diagnostic regional wall motion abnormality is identified, this possibility cannot be completely excluded on the basis of this study. - Right ventricle: Systolic pressure cannot be accurately determined, but appears to be increased. - Atrial septum: A PFO is not demonstrated by color Doppler or agitated saline contrast. - Mitral valve: There is trace regurgitation. - Aortic valve: There is no evidence of stenosis. - Tricuspid valve: There is trace to mild regurgitation. - Pericardium, extracardiac: A small pericardial effusion is identified along the right ventricular free wall. There is no evidence of hemodynamic compromise. - Study data: No prior study is available for comparison. Study data: Transthoracic echocardiogram. Procedure: Transthoracic echocardiography was performed. Image quality was poor. The study was technically limited due to poor acoustic window availability and poor patient compliance. Inadequate Apical and Parasternal imaging. Suprasternal notch view was not attempted today due to C-spine Collar. A bubble study was performed. Complete 2D, spectral Doppler, and color flow Doppler. Location: Bedside. Patient status: Inpatient. Patient room number: 437. No prior study is available for comparison. Rhythm: Normal sinus rhythm. Findings Left ventricle: The cavity size is at the lower limits of normal. Wall thickness is mildly increased. Systolic function is normal. The estimated ejection fraction is 60-65%. Although no diagnostic regional wall motion abnormality is identified, this possibility cannot be completely excluded on the basis of this study. Doppler parameters are consistent with abnormal left ventricular relaxation (grade 1 diastolic dysfunction). Right ventricle: The cavity size is mildly dilated. Systolic function is normal. Systolic pressure cannot be accurately determined, but appears to be increased. Left atrium: The atrium is at the upper limits of normal in size. Right atrium: The atrium is normal in size. Atrial septum: A PFO is not demonstrated by color Doppler or agitated saline contrast. Images 80 and 81. Mitral valve: The leaflets are mildly thickened. There is no evidence of stenosis. There is trace regurgitation. Aortic valve: The valve is trileaflet. The leaflets are mildly thickened. There is no evidence of stenosis. There is no significant regurgitation. Tricuspid valve: The leaflets are normal thickness. There is no evidence of stenosis. There is trace to mild regurgitation. Pulmonic valve: The leaflets are normal thickness. There is no evidence of stenosis. There is trace regurgitation. Aorta: Aortic root: The aortic root is appears normal. Ascending aorta: The ascending aorta is moderately dilated. Aortic arch: The aortic arch is not visualized. Pericardium: A small pericardial effusion is identified along the right ventricular free wall. There is no evidence of hemodynamic compromise. Pulmonary arteries: The main pulmonary artery is normal-sized. Systolic pressure can not be accurately estimated. Systemic veins: Inferior vena cava: The vessel is normal in size. There is (>= 50%) respiratory change in the IVC dimension. Measurements Left ventricle Value Ref Right atrium continued Value Ref JELENA, LAX (L) 3.9 cm 4.2 - 5.8 ML dim, ES, A4C 3.4 cm 2.6 - 4.4 ESD, LAX 2.6 cm 2.5 - 4.0 Estimated RAP 3 mm Hg --------- FS, LAX 32 % 25 - 43 PW, ED, LAX (H) 1.2 cm 0.6 - 1.0 Aortic valve Value Ref FS 32 % 25 - 43 Koko diam, ED 2.2 cm --------- PW, ED (H) 1.2 cm 0.6 - 1.0 Peak v, S 0.77 m/sec --------- E', lat koko, TDI (L) 3.2 cm/sec >=10.0 VTI, S 16.0 cm -- ------- E/e', lat koko, 12 Mean grad, S 1.0 mm Hg ----- ---- TDI Peak grad, S 2.0 mm Hg --------- E', med koko, TDI (L) 4.7 cm/sec >=7.0 LVOT/AV, VTI ratio 0.75 -- ------- E/e', med koko, 8 TDI Mitral valve Value Ref E', avg, TDI 4.0 cm/sec Peak E 0.4 m/sec ----- ---- E/e', avg, TDI 10 <=14 Peak A 0.56 m/sec -- ------- Decel time 225 ms --------- LVOT Value Ref Peak E/A ratio 0.7 --------- Peak bolivar, S 0.56 m/sec VTI, S 12.0 cm Pulmonic valve Value Ref Mean grad, S 1 mm Hg Peak v, S 0.73 m/sec --------- Peak grad, S 2.0 mm Hg --------- Ventricular septum Value Ref IVS, ED (H) 1.1 cm 0.6 - 1.0 Tricuspid valve Value Ref TR peak v 2 m/sec <=2.8 Right ventricle Value Ref Peak RV-RA grad, S 16 mm Hg --------- JELENA, LAX 3.4 cm JELENA minor ax, 3.5 cm 1.9 - 3.5 Aortic root Value Ref A4C mid Root diam 3.3 cm <4.0 Left atrium Value Ref Ascending aorta Value Ref AP dim, ES (L) 2.90 cm 3.00 - AAo AP diam, S 4.2 cm --------- 4.00 ML dim, A4C 4.6 cm Inferior vena cava Value Ref SI dim, A4C 5.3 cm Diam 1.3 cm --------- Vol/bsa, ES, 1-p 32 ml/m^2 12 - 37 A4C Right atrium Value Ref SI dim, ES 4.0 cm 3.4 - 5.3 Legend: (L) and (H) brittney values outside specified reference range. Prepared and electronically signed by Alfred Phan MD 08/06/2019 13:58
[2019-08-06 14:26] LABS: Urine Benzodiazepine Screen None Detected (None Detect); Urine Buprenorphine Screen None Detected (None Detect); Urine Hydrocodone Screen None Detected (None Detect); Urine Opiates Screen None Detected (None Detect)
[2019-08-06] MEDS: Cyanocobalamin TAB* 500 MCG PO SCH (15:19)
[2019-08-06] MEDS: Atorvastatin* 40 MG TAB PO SCH (20:06)
--- NOTE | 2019-08-06 23:59 | CONS ---
CONSULTATION REPORT: DATE OF CONSULT: 08/06/19 HISTORY OF PRESENT ILLNESS: The patient is a very pleasant 63-year-old gentleman with a history of alcohol abuse, who presented to the emergency room via EMS. The patient was found to be having altered mental status by all of his friends. EMS was called, and at the time of arrival, code [employer] was activated. The patient had a CT scan of the brain, was without any acute intracranial abnormality except severe cerebral atrophy. CTA of the head and neck without evidence of large vessel occlusion. The patient reported later that he had a fall and he has been having several falls in the past. History was obtained by the patient's chart, and internal medicine team requested to see the patient because of MRI of the cervical spine findings consistent with multilevel stenosis. The patient was placed on alcohol withdrawal protocol. He had MRI of the brain, suspicion for PRES syndrome versus bilateral CVAs. The patient was not able to move his upper extremities since his admission. He is reported to have incontinence prior to his arrival. PAST MEDICAL HISTORY: Hypertension, right cyst removal, lower extremity fracture, EtOH abuse, vitamin B12 deficiency, recurrent syncope. MEDICATIONS: The patient was on: 1. Atenolol. 2. Vitamin B. 3. Ambien. 4. Lisinopril. 5. Dyazide. ALLERGIES: No known drug allergies. FAMILY HISTORY: Not available. SOCIAL HISTORY: Unknown. The patient is reported to have use of tobacco and alcohol. Reported 2 bottles of miesha a day. No known history of drug use. The patient lives alone. No family information available. PHYSICAL EXAM: The patient is not in acute distress. He is awake and alert. He is oriented x1 to himself. He is a poor historian. He denies any neck or back pain. He cannot tell why he is in the hospital. The patient received Ativan as part of the EtOH withdrawal protocol. Pupils are equal and reactive, face symmetric, tongue midline. Hearing; no hearing loss although exam is very limited. The patient does not participate for a complete eye exam. His eyes seem to be conjugate. Motor 4 to 5/5 in lower extremities, 0/5 in the right upper extremity. Minimal withdrawal to central pain with left upper extremity. Sensory is grossly intact to light touch, although the patient's exam is not reliable because of his mental status. He does grimace to pain in all extremities. Deep tendon reflexes +1 bilaterally. No clonus. No Babinski. Mars positive bilaterally. The patient has a Muldoon J collar. He has no tenderness to palpation at the cervical, thoracic, or lumbar spine. DIAGNOSTIC STUDIES/LAB DATA: The patient had MRI of the brain that revealed possible PRES syndrome versus bilateral CVAs. The patient also had a CT scan of the cervical spine revealing degenerative disk disease with grade 1 spondylolisthesis at C2 and C3. There is no significant difference between findings from the previous CT scan from 2017. MRI of the cervical spine revealing severe spondylosis with multilevel stenosis without evidence of cord compression or posterior ligament injury. The patient had a thoracolumbar spine x-ray that did not reveal any fracture. CT of the chest did not reveal any fracture, but it did reveal acute pulmonary embolism. ASSESSMENT: Mr. 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 PLAN: The patient at this point is kindly admitted by the internal medicine team. He is monitored and his blood pressure is controlled. In terms of his upper extremity weakness, the etiology is not clear. There is a possibility of central cord syndrome given the significance of stenosis and a history of possible trauma, although no significant signal changes are evident in the spinal cord. Weakness etiology related to the PRES syndrome may be also possible. The patient is currently on Eliquis because of his diagnosis of pulmonary embolism. I believe that the patient may benefit from a posterior cervical decompression and fusion in multiple levels once he is medically stable. For the time being, we recommend to maintain the Muldoon J collar. We will follow the patient with you. The patient is currently followed by Dr. Rivera from Neurology. Thank you for allowing us to participate in the care of this patient. Please do not hesitate to contact our office in case you have any further questions or concerns regarding the care of this patient. [id number]/CPS #: [id number] MTDD
[2019-08-07] MEDS: LORazepam INJ* 2 MG/ML 1 ML VIAL IV PUSH SCH ×4 (01:35→23:15)
[2019-08-07] MEDS: levETIRAcetam 500 MG IVPREMIX* 500 MG/100 ML BAG IV SCH ×2 (03:20→16:43)
[2019-08-07] MEDS ORDERED: NS 0.9% 1000 ML** 1,000 ML IV SCH (05:15)
[2019-08-07] MEDS: amLODIPine TAB* 5 MG PO SCH (08:50)
[2019-08-07] MEDS: Apixaban* 5 MG TAB PO SCH ×2 (08:51→20:14)
[2019-08-07] MEDS: Atenolol TAB* 50 MG PO SCH ×2 (08:51→20:14)
[2019-08-07] MEDS: BuPROPion XL* 300 MG TAB.XL PO SCH (08:51)
[2019-08-07] MEDS: Cyanocobalamin TAB* 500 MCG PO SCH (08:51)
[2019-08-07] MEDS: Lisinopril TAB* 10 MG PO SCH (08:51)
[2019-08-07] MEDS: Thiamine TAB* 100 MG TAB PO SCH (08:52)
[2019-08-07] MEDS: Folic Acid TAB* 1 MG PO SCH (08:52)
[2019-08-07] MEDS: Multivitamins/Minerals TAB PO SCH (08:52)
[2019-08-07] MEDS ORDERED: Diazepam INJ CARPUJECT* 5 MG/ML IV PRN (09:13)
--- NOTE | 2019-08-07 10:13 | PN ---
Subjective Date of Service: 08/07/19 Interval History: Patient's friend, Rhett, at bedside today tells me Byron usually drinks over a liter of hard liquor per day as well as beer, and has been smoking crack. Patient intermittently agitated during the day today, but calm at time of evaluation. Patient denies pain in neck from brace, chest pain, difficulty breathing, headache. Patient's safety monitor mentions that patient used left hand to reach for her at some point this AM. Objective Active Medications: Acetaminophen (Tylenol Tab*) 650 mg PO Q4H PRN PRN Reason: MILD PAIN or TEMP > 100.4 Last Admin: 08/06/19 06:01 Dose: 650 mg Amlodipine Besylate (Norvasc Tab*) [address] [facility] Last Admin: 08/07/19 08:50 Dose: 5 mg Apixaban (Eliquis*) [address] [facility] Stop: 08/12/19 09:59 Last Admin: 08/07/19 08:51 Dose: 10 mg Atenolol (Tenormin Tab*) [address] [facility] Last Admin: 08/07/19 08:51 Dose: 100 mg Atenolol (Tenormin Tab*) [address] [facility] Last Admin: 08/06/19 20:06 Dose: 50 mg Atorvastatin Calcium (Lipitor*) [address] [facility] Last Admin: 08/06/19 20:06 Dose: 40 mg Bupropion HCl (Bupropion Xl*) [address] [facility] Last Admin: 08/07/19 08:51 Dose: 300 mg Cyanocobalamin (Vitamin B12 Tab*) 1,[address] [facility] Last Admin: 08/07/19 08:51 Dose: 1,000 mcg Diazepam (Valium Carpuject*) 2 mg IV ONCE PRN PRN Reason: agitation for MRI Last Admin: 08/06/19 09:44 Dose: 2 mg Diazepam (Valium Carpuject*) 2 mg IV ONCE PRN PRN Reason: BEFORE MRI Folic Acid (Folvite Tab*) [address] [facility] Last Admin: 08/07/19 08:52 Dose: 1 mg Hydralazine HCl (Apresoline Iv*) 10 mg IV SLOW PU Q4H PRN PRN Reason: BLOOD PRESSURE Levetiracetam (Keppra Iv Premix*) 500 mg in 100 mls @ 400 mls/hr IV Q12H [facility] Last Admin: 08/07/19 03:20 Dose: 400 mls/hr Sodium Chloride (Ns 0.9% 1000 Ml) 1,000 mls @ 75 mls/hr IV PER RATE [facility] Stop: 08/07/19 18:34 Last Admin: 08/07/19 05:27 Dose: 75 mls/hr Labetalol HCl (Trandate Iv*) 20 mg IV PUSH Q4H PRN PRN Reason: blood pressure breakthrough Last Admin: 08/06/19 21:33 Dose: 20 mg Lisinopril (Prinivil Tab*) [address] [facility] Last Admin: 08/07/19 08:51 Dose: 20 mg Lorazepam (Ativan Inj*) 0 - 3 mg IV PUSH .PER [facility] PROTOCOL [facility]; Protocol Last Admin: 08/07/19 03:44 Dose: 2 mg Miscellaneous (Ativan Pyxis Gill) 1 ea N/A .ATIVAN IV GILL PRN PRN Reason: PYXIS GILL Multivitamins/Minerals (Theragran/Minerals Tab*) [address] [facility] Last Admin: 08/07/19 08:52 Dose: 1 tab Ondansetron HCl (Zofran Inj*) 4 mg IV Q4H PRN PRN Reason: NAUSEA/VOMITING Thiamine HCl (Vitamin B-1 Tab*) [address] [facility] Last Admin: 08/07/19 08:52 Dose: 100 mg Vital Signs - 8 hr 08/07/19 08/07/19 08/07/19 02:38 03:15 03:44 Temperature 98.3 F Pulse Rate 103 Respiratory 16 22 18 Rate Blood Pressure 126/86 (mmHg) O2 Sat by Pulse 100 Oximetry 08/07/19 08/07/19 08/07/19 05:00 05:42 07:30 Temperature 98.0 F 97.9 F Pulse Rate 99 92 Respiratory 18 16 16 Rate Blood Pressure 120/90 114/84 (mmHg) O2 Sat by Pulse 100 97 Oximetry 08/07/19 09:00 Temperature 97.9 F Pulse Rate 96 Respiratory 18 Rate Blood Pressure 122/86 (mmHg) O2 Sat by Pulse 98 Oximetry Oxygen Devices in Use Now: None Appearance: Thin, black male, laying in bed, appearing comfortable and in NAD Eyes: No Scleral Icterus, - - PERRL Ears/Nose/Mouth/Throat: Mucous Membranes Moist Neck: Trachea Midline Respiratory: Symmetrical Chest Expansion and Respiratory Effort, Clear to Auscultation Cardiovascular: NL Sounds; No Murmurs; No JVD, RRR Abdominal: - - abd soft, nontender, nondistended Extremities: No Edema, No Clubbing, Cyanosis Skin: No Rash or Ulcers Neurological: - - alert, oriented to self, tells me we are in [facility] but doesn't know more specifics, tells me year is 2039 and president is Garcia; offshore diver strength 3/5 L , unable to mobilize for flexion/extension the rest of LUE; unable to mobilize RUE or perform offshore diver strength; 5/5 dorsiflexion/plantar flexion bilat LEs; 2/5 offshore diver strength left hand; unable to flex/extend at left elbow/shoulder; unable to assess strenth of RUE Result Diagrams: 08/06/19 06:29 08/07/19 13:27 Microbiology and Other Data: Microbiology 08/04/19 10:47 Aerobic Blood Culture - Preliminary Blood Venous No Growth Day 1 Anaerobic Blood Culture - Preliminary No Growth Day 1 08/04/19 10:47 Aerobic Blood Culture - Preliminary Blood Venous No Growth Day 1 Anaerobic Blood Culture - Preliminary No Growth Day 1 Diagnostic Imaging: MRI BRAIN w/o contrast IMPRESSION: LARGE BILATERAL SYMMETRIC AREAS OF RESTRICTED DIFFUSION PRESENT WITHIN THE OCCIPITAL PARIETAL AND POSTERIOR FRONTAL LOBES MOST CONSISTENT WITH POSTERIOR REVERSIBLE ENCEPHALOPATHY SYNDROME LESS LIKELY INFARCTS. MRI BRAIN w/ contrast IMPRESSION: The pattern of symmetric signal alteration in the parieto-occipital regions and along the posterior MCA/DANIEL watershed territories is redemonstrated. There is questionable increased restricted diffusion the left temporal lobe and left cerebellar hemisphere. No convincing hemorrhage or enhancement. The overall constellation of findings is compatible with posterior reversible encephalopathy syndrome (this occasionally leads to infarct). Assess/Plan/Problems-Billing Assessment: 63 yo black male with PMHx alcohol use, HTN, tobacco use presents with altered mental status. - Patient Problems (1) Altered mental status Current Visit: Yes Status: Acute Code(s): R41.82 - ALTERED MENTAL STATUS, UNSPECIFIED SNOMED Code(s): 033061584 Comment: -presents with altered mental status per friend who called EMS -CT brain and CTA head/neck without acute findings; ammonia wnl -MRI brain demonstrates findings most consistent with PRES, though less likely bilateral infarcts; controlling HTN as below, continue keppra, continue statin per neurology -seizure precautions -appreciate Neurology consult -EEG demonstrating diffuse, nonspecific, mild encephalopathy -UDS positive only for coaine, though unfortunately delayed urine collection until 08/05/19 -restarting empirically treating for wernicke's with IV thiamine per Dr. Lebron's rec -mental status appears to fluctuate, I suspect is related to alcohol withdrawal (2) Bilateral arm weakness Current Visit: Yes Status: Acute Code(s): R29.898 - OTH SYMPTOMS AND SIGNS INVOLVING THE MUSCULOSKELETAL SYSTEM SNOMED Code(s): 52108434935506144 Comment: -MRI brain most likely PRES and less likely bilateral CVA -urinary incontinence, but rectal tone intact -sensation intact per patient, though he is poor historian; LUE with improved strength in offshore diver today and more ability to move LUE -CT c-spine with severe stenosis at multiple levels -MRI c-spine with spinal cord flattening and thecal sac flattening; appreciate consult from Dr. Covington; he believes there is central cord syndrome; patient woud benefit from surgical intervention but is a poor candidate at this time -Dr. Covington does not believe IV steroids would benefit at this time -patient has hx of frequent falls at home while intoxicated; patient's friend tells me he believes he fell at home and struck his head 24-36 hours prior to admission due to edema to head when he visisted pt at home -[place] J collar in place -Xrays of right shoulder, humerus, elbow to r/o any peripheral nerve damage from UE fracture or dislocation - no acute findings -neurology concerned that possibly PRES lead to watershed infarct -MRI brain with contrast today was not revealing (3) Pulmonary emboli Current Visit: Yes Status: Acute Code(s): I26.99 - OTHER PULMONARY EMBOLISM WITHOUT ACUTE COR PULMONALE SNOMED Code(s): 02159679 Comment: -pulmonary emboli in right lower lobe -started eliquis -I do have concern for starting this patient on anticoagulation due to his history of frequent falls and alcohol use, though he will likely be going to subacute rehab where he will hopefully have closer monitoring and a lower likelihood of falling. -patient has HAS-BLED score of 2, indicating 4.1% risk of major bleeding. At this time, the risk for untreated PEs outweights the risk of major bleeding. -considering the small likelihood that he had bilateral CVA, TTE with bubble study is pending (4) Hypertension Current Visit: No Status: Acute Code(s): I10 - ESSENTIAL (PRIMARY) HYPERTENSION SNOMED Code(s): 75324291 Comment: -frequently hypertensive but overall within goal range overnight -continue prn labetalol and prn hydralazine -continue increased lisinopril, continue home atenolol and new amlodipine (5) Alcohol use Current Visit: Yes Status: Acute Code(s): Z72.89 - OTHER PROBLEMS RELATED TO LIFESTYLE SNOMED Code(s): 996303 Comment: -known hx of alcohol use -serum alcohol 87 at admission -continue WAM protocol - required ativan on 3 occasions today (6) Depression Current Visit: Yes Status: Acute Code(s): F32.9 - MAJOR DEPRESSIVE DISORDER , SINGLE EPISODE, UNSPECIFIED SNOMED Code(s): 08929640 Comment: -continue home wellbutrin, OK with Dr. Rivera (7) DVT prophylaxis Current Visit: No Status: Acute Code(s): Z29.9 - ENCOUNTER FOR PROPHYLACTIC MEASURES, UNSPECIFIED SNOMED Code(s): 189179481 Comment: -shawn hernandez (8) Full code status Current Visit: No Status: Acute Code(s): Z78.9 - OTHER SPECIFIED HEALTH STATUS SNOMED Code(s): 756848954 Status and Disposition: inpatient pending further improvement, anticipate VALERIE at discharge
[2019-08-07 10:27] LABS: Myoglobin 39.2 ng/mL (17.4-105.7)
--- NOTE | 2019-08-07 11:08 | PN ---
Subjective Date of Service: 08/07/19 Length of Stay: 4 Days Interval History: His mental status continues to wax and wane, at times, no answering appropriately, other times seems to be more alert and oriented. He intermittently follows commands but is unable to move either upper extremity today with preserved movement of the lower extremities. Studies: CT and CTA head and neck did not show any acute infarction or LVO.: No acute changes or LVO MRI brain without contrast showed symmetrical, increase area of T2- hyperintensity, restricted diffusion with ADC correlation in the occipital, parietal and posterior frontal lobes. These changes are consistent with PRES. CT cervical spine: moderate-to severe multilevel degenerative disc disease and foraminal stenosis. MRI Cervical Spine: Moderate spinal stenosis at C2-3 and C3-4 with multilevel neuroforaminal narrowing CTA of the chest showed a PE. Family History: Unchanged from Admission Social History: Unchanged from Admission Past Medical History: Unchanged from Admission Objective Active Medications: Acetaminophen (Tylenol Tab*) 650 mg PO Q4H PRN PRN Reason: MILD PAIN or TEMP > 100.4 Last Admin: 08/06/19 06:01 Dose: 650 mg Amlodipine Besylate (Norvasc Tab*) 5 mg PO DAILY [facility] Last Admin: 08/07/19 08:50 Dose: 5 mg Apixaban (Eliquis*) 10 mg PO BID [facility] Stop: 08/12/19 09:59 Last Admin: 08/07/19 08:51 Dose: 10 mg Atenolol (Tenormin Tab*) 100 mg PO QAM [facility] Last Admin: 08/07/19 08:51 Dose: 100 mg Atenolol (Tenormin Tab*) 50 mg PO BEDTIME [facility] Last Admin: 08/06/19 20:06 Dose: 50 mg Atorvastatin Calcium (Lipitor*) 40 mg PO 2100 [facility] Last Admin: 08/06/19 20:06 Dose: 40 mg Bupropion HCl (Bupropion Xl*) 300 mg PO DAILY [facility] Last Admin: 08/07/19 08:51 Dose: 300 mg Cyanocobalamin (Vitamin B12 Tab*) 1,000 mcg PO DAILY [facility] Last Admin: 08/07/19 08:51 Dose: 1,000 mcg Diazepam (Valium Carpuject*) 2 mg IV ONCE PRN PRN Reason: agitation for MRI Last Admin: 08/06/19 09:44 Dose: 2 mg Diazepam (Valium Carpuject*) 2 mg IV ONCE PRN PRN Reason: BEFORE MRI Last Admin: 08/07/19 10:59 Dose: 2 mg Folic Acid (Folvite Tab*) 1 mg PO DAILY [facility] Last Admin: 08/07/19 08:52 Dose: 1 mg Hydralazine HCl (Apresoline Iv*) 10 mg IV SLOW PU Q4H PRN PRN Reason: BLOOD PRESSURE Levetiracetam (Keppra Iv Premix*) 500 mg in 100 mls @ 400 mls/hr IV Q12H [facility] Last Admin: 08/07/19 03:20 Dose: 400 mls/hr Sodium Chloride (Ns 0.9% 1000 Ml) 1,000 mls @ 75 mls/hr IV PER RATE [facility] Stop: 08/07/19 18:34 Last Admin: 08/07/19 05:27 Dose: 75 mls/hr Labetalol HCl (Trandate Iv*) 20 mg IV PUSH Q4H PRN PRN Reason: blood pressure breakthrough Last Admin: 08/06/19 21:33 Dose: 20 mg Lisinopril (Prinivil Tab*) 20 mg PO DAILY [facility] Last Admin: 08/07/19 08:51 Dose: 20 mg Lorazepam (Ativan Inj*) 0 - 3 mg IV PUSH .PER [facility] PROTOCOL [facility]; Protocol Last Admin: 08/07/19 03:44 Dose: 2 mg Miscellaneous (Ativan Pyxis Bates) 1 ea N/A .ATIVAN IV BATES PRN PRN Reason: PYXIS BATES Multivitamins/Minerals (Theragran/Minerals Tab*) 1 tab PO DAILY [facility] Last Admin: 08/07/19 08:52 Dose: 1 tab Ondansetron HCl (Zofran Inj*) 4 mg IV Q4H PRN PRN Reason: NAUSEA/VOMITING Thiamine HCl (Vitamin B-1 Tab*) 100 mg PO DAILY [facility] Last Admin: 08/07/19 08:52 Dose: 100 mg Vital Signs 08/06/19 08/06/19 08/06/19 13:15 13:45 14:07 Temperature 97.8 F Pulse Rate 86 Respiratory 16 16 Rate Blood Pressure 140/100 126/82 (mmHg) O2 Sat by Pulse 97 Oximetry 08/06/19 08/06/19 08/06/19 15:00 17:00 19:15 Temperature 97.9 F 98.4 F 98.1 F Pulse Rate 88 92 92 Respiratory 16 20 20 Rate Blood Pressure 110/76 124/88 140/70 (mmHg) O2 Sat by Pulse 96 97 100 Oximetry 08/06/19 08/06/19 08/06/19 19:37 20:00 21:00 Temperature 98.1 F Pulse Rate 98 Respiratory 20 20 24 Rate Blood Pressure 146/104 (mmHg) O2 Sat by Pulse 99 Oximetry 08/06/19 08/06/19 08/06/19 22:48 22:56 23:43 Temperature 97.5 F Pulse Rate 95 Respiratory 16 20 20 Rate Blood Pressure 120/80 (mmHg) O2 Sat by Pulse 100 Oximetry 08/07/19 08/07/19 08/07/19 00:58 01:35 02:38 Temperature 98 F Pulse Rate 98 Respiratory 20 18 16 Rate Blood Pressure 120/80 (mmHg) O2 Sat by Pulse 96 Oximetry 08/07/19 08/07/19 08/07/19 03:15 03:44 05:00 Temperature 98.3 F 98.0 F Pulse Rate 103 99 Respiratory 22 18 18 Rate Blood Pressure 126/86 120/90 (mmHg) O2 Sat by Pulse 100 100 Oximetry 08/07/19 08/07/19 08/07/19 05:42 07:30 09:00 Temperature 97.9 F 97.9 F Pulse Rate 92 96 Respiratory 16 16 18 Rate Blood Pressure 114/84 122/86 (mmHg) O2 Sat by Pulse 97 98 Oximetry 08/07/19 10:59 Temperature Pulse Rate Respiratory 22 Rate Blood Pressure (mmHg) O2 Sat by Pulse Oximetry Intake and Output Last 24 Hours 08/05/19 08/06/19 08/07/19 08/08/19 06:59 06:59 06:59 06:59 Intake Total 275 1420 800 490 Output Total 1050 0 275 Balance -775 1420 525 490 Weight 141 lb 14.4 oz 143 lb Intake: IV Fluids 255 30 144 NS 144 keppra 30 IVPB 200 106 keppra 200 106 Oral 20 1190 800 240 Output: Urine 0 0 275 Deluna 1050 Other: Estimated Void Large Medium Medium # Bowel Movements 0 Estimated Stool Amount Medium # Voids 2 1 2 Oxygen Devices in Use Now: None Neurology Exam: General: Ill appearing man in no distress. HEENT: Normocephalic/atraumatic, sclera anicteric, mucous membranes moist Neck: [place] J in place Chest: Clear to auscultation bilaterally Cardiovascular: Regular rate and rhythm without murmurs Extremities: No clubbing, cyanosis, or edema. Skin is warm Neurological Findings: Awake, somewhat agitated, would not answer orientation questions but is following commands. Speech: Mild dysarthria. Cranial Nerve: PERRL, EOM intact, gaze remains slightly disconjugate. Does not blink to threat but claims to see everything in the room. Motor: He is moving his legs with good strength bilaterally, symmetric, able to hold antigravity. Has has no movement in his arms today from the shoulder down Sensation: grossly intact to LT/PP in the arms and legs. Does not w/d to pain in the upper extremities Deep Tendon Reflex: Trace in the uppers, 2+ knees, 0 at the ankles. Extensor plantar response on the right Result Diagrams: 08/06/19 06:29 08/07/19 13:27 Microbiology and Other Data: Microbiology 08/04/19 10:47 Aerobic Blood Culture - Preliminary Blood Venous No Growth Day 1 Anaerobic Blood Culture - Preliminary No Growth Day 1 08/04/19 10:47 Aerobic Blood Culture - Preliminary Blood Venous No Growth Day 1 Anaerobic Blood Culture - Preliminary No Growth Day 1 Diagnostic Imaging: MRI BRAIN IMPRESSION: LARGE BILATERAL SYMMETRIC AREAS OF RESTRICTED DIFFUSION PRESENT WITHIN THE OCCIPITAL PARIETAL AND POSTERIOR FRONTAL LOBES MOST CONSISTENT WITH POSTERIOR REVERSIBLE ENCEPHALOPATHY SYNDROME LESS LIKELY INFARCTS. Repeat MRI pending Assessment/Plan Records reviewed: 63 year old with a history of alcohol abuse, intoxication on [facility] protocol, admitted with sudden onset confusion, irritability, SBP in the 230s and DBP in the 130s initially. MRI findings on admission consistent with PRES with symptoms of cortical blindness, AMS and weakness but worsening weakness on the left side compared to the right and now bilaterally. MRI of the C-spine shows marked degenerative changes and neurosurgery is following. His mental status continues to wax and wane, vision symptoms persist and his weakness has worsened. 1. Acute hypertensive encephalopathy: Mental status seems to be waxing and waning which could be a result of alcohol w/d and meds. His blood pressures are better but the persistence of his upper extremity weakness is concerning. I appreciate Neurosurgery input and central cord syndrome is in the differential. The patient did have a fall on the day of admission and could have acutely worsened chronic disease. He does not appear to be myelopathic on exam: --Repeat MRI to look for evolution or new areas which might help explain his symptoms. Consider something like "man in a barrel" which you can see with bilateral watershed ishcemia, although the presentation is somewhat atypical. --Check muscle enzymes to look for evidence of myopathy, could be seen in the setting of chronic alcohol use, although atypical presentation. --He is on Thiamine and Folic acid --Consider central cord with acute on chronic pathology, possibly worsened by a fall. Consider Steroids if no strong evidence of myopathy --Acute demyelinating neuropathy such as GBS, less likely given presentation but is a consideration. Monitor for clinical worsening. --Continue Keppra for 14 days total --Continue BP management --Will plan repeat MRI in several weeks --Needs PT/OT eval 2. Cervical spine disease, stenosis, radiculopathy: neurosurgery is following. Degree of Consider a more acute process. Will speak with the neurosurgeon today. 3. History of Alcohol use: --[facility] protocol --I would switch back to IV thiamine for now given complicated neurologic picture.
[2019-08-07] MEDS ORDERED: Gadoteridol* (CONTRAST) 279.3 MG/ML 10 ML IV ONE (11:57)
[2019-08-07 13:45] LABS: Calcium 8.5 mg/dL (8.6-10.3); Potassium 4.1 mmol/L (3.5-5.0)
[2019-08-07 13:51] LABS: BUN/Creatinine Ratio 16.3 (8-20); EGFR African American 109.4 (>60); EGFR Non-African American 90.4 (>60)
[2019-08-07] MEDS: NS 0.9% 1000 ML** 1,000 ML IV SCH (14:15)
[2019-08-07] MEDS: Thiamine INJ* 500 MG in NS 0.9% 250 ML* 250 ML IV SCH ×2 (15:10→20:14)
[2019-08-07] MEDS: Atorvastatin* 40 MG TAB PO SCH (20:14)
--- NOTE | 2019-08-07 22:08 | PN ---
Progress Note - Progress Note Date of Service: 08/07/19 SOAP: Subjective: [] No events ON. On ETOH protocol. Received Ativan earlier. Reported to have no movement of LUE during the day, but reported by nurse that had very weak certified medical dosimetrist on the left that was not persistent. Objective: []AAOx1 , CACHORRO, Face symmetric, tongue midline. Motor 0/5 UEs, 4-5 /5 LEs Sensory grossly intact to light touch. Limited exam due to mental status, grimaces to pain at all extremities. Assessment: []63 yom Possible PRESS vs bairon watershed infarcts, cervical spondylosis questionable central cord syndrome. Plan: []Monitor VS, Neurochecks. Discussed with Dr Lebron who kindly evaluated patient. UE weakness etiology still unclear. Given the presence of bairon restricted diffusion signal changes and the absence of cord signal changes in MRI of C spine and stable CT findings, the possibility of central cord syndrome is less likely. PRESS of bairon cerebral watershed infarcts may be the most likely explanation. Given the presence of cervical spondylosis, the patient may benefit form surgical decompression when medically stable. Poor surgical candidate at this time because ETOH withdrawl , presence of PE on Eliquis and encephalopathy. May consider cervical decompression when medically cleared. Maintain MJ collar for now. Appreciate Neurology, IM care. Darryl Covington MD
[2019-08-07] MEDS: Labetalol IV* 5 MG/ML 20 ML VIAL IV PUSH PRN (23:16)
[2019-08-08] MEDS: LORazepam INJ* 2 MG/ML 1 ML VIAL IV PUSH SCH ×2 (02:56→05:00)
[2019-08-08] MEDS: levETIRAcetam 500 MG IVPREMIX* 500 MG/100 ML BAG IV SCH ×2 (03:31→16:19)
[2019-08-08] MEDS: NS 0.9% 1000 ML** 1,000 ML IV SCH (03:34)
[2019-08-08] MEDS: Labetalol IV* 5 MG/ML 20 ML VIAL IV PUSH PRN (05:01)
[2019-08-08] MEDS ORDERED: NS 0.9% 250 ML* 250 ML ONE (08:30)
[2019-08-08] MEDS: Apixaban* 5 MG TAB PO SCH ×2 (08:44→22:04)
[2019-08-08] MEDS: amLODIPine TAB* 5 MG PO SCH (08:44)
[2019-08-08] MEDS: BuPROPion XL* 300 MG TAB.XL PO SCH (08:45)
[2019-08-08] MEDS: Atenolol TAB* 50 MG PO SCH ×2 (08:45→22:04)
[2019-08-08] MEDS: Cyanocobalamin TAB* 500 MCG PO SCH (08:45)
[2019-08-08] MEDS: Multivitamins/Minerals TAB PO SCH (08:46)
[2019-08-08] MEDS: Lisinopril TAB* 10 MG PO SCH (08:46)
[2019-08-08] MEDS: Folic Acid TAB* 1 MG PO SCH (08:46)
[2019-08-08] MEDS: Thiamine INJ* 500 MG in NS 0.9% 250 ML* 250 ML IV SCH ×3 (08:48→22:42)
--- NOTE | 2019-08-08 11:27 | PN ---
Subjective Date of Service: 08/08/19 Interval History: Pt is feeling ok. He denies any pain. Nursing and aides state he is about the same cognitively now as yesterday. Objective Active Medications: Acetaminophen (Tylenol Tab*) 650 mg PO Q4H PRN PRN Reason: MILD PAIN or TEMP > 100.4 Last Admin: 08/06/19 06:01 Dose: 650 mg Amlodipine Besylate (Norvasc Tab*) 5 mg PO DAILY [facility] Last Admin: 08/08/19 08:44 Dose: 5 mg Apixaban (Eliquis*) 10 mg PO BID [facility] Stop: 08/12/19 09:59 Last Admin: 08/08/19 08:44 Dose: 10 mg Atenolol (Tenormin Tab*) 100 mg PO QAM [facility] Last Admin: 08/08/19 08:45 Dose: 100 mg Atenolol (Tenormin Tab*) 50 mg PO BEDTIME [facility] Last Admin: 08/07/19 20:14 Dose: 50 mg Atorvastatin Calcium (Lipitor*) 40 mg PO 2100 [facility] Last Admin: 08/07/19 20:14 Dose: 40 mg Bupropion HCl (Bupropion Xl*) 300 mg PO DAILY [facility] Last Admin: 08/08/19 08:45 Dose: 300 mg Cyanocobalamin (Vitamin B12 Tab*) 1,000 mcg PO DAILY [facility] Last Admin: 08/08/19 08:45 Dose: 1,000 mcg Diazepam (Valium Carpuject*) 2 mg IV ONCE PRN PRN Reason: agitation for MRI Last Admin: 08/06/19 09:44 Dose: 2 mg Diazepam (Valium Carpuject*) 2 mg IV ONCE PRN PRN Reason: BEFORE MRI Last Admin: 08/07/19 10:59 Dose: 2 mg Folic Acid (Folvite Tab*) 1 mg PO DAILY [facility] Last Admin: 08/08/19 08:46 Dose: 1 mg Hydralazine HCl (Apresoline Iv*) 10 mg IV SLOW PU Q4H PRN PRN Reason: BLOOD PRESSURE Last Admin: 08/08/19 02:56 Dose: 10 mg Levetiracetam (Keppra Iv Premix*) 500 mg in 100 mls @ 400 mls/hr IV Q12H [facility] Last Admin: 08/08/19 03:31 Dose: 400 mls/hr Thiamine HCl 500 mg/ Sodium (Chloride) 255 mls @ 255 mls/hr IV TID [facility] Last Admin: 08/08/19 08:48 Dose: 255 mls/hr Sodium Chloride (Ns 0.9% 1000 Ml) 1,000 mls @ 100 mls/hr IV PER RATE [facility] Last Admin: 08/08/19 03:34 Dose: 100 mls/hr Labetalol HCl (Trandate Iv*) 20 mg IV PUSH Q4H PRN PRN Reason: blood pressure breakthrough Last Admin: 08/08/19 05:01 Dose: 20 mg Lisinopril (Prinivil Tab*) 20 mg PO DAILY [facility] Last Admin: 08/08/19 08:46 Dose: 20 mg Lorazepam (Ativan Inj*) 0 - 3 mg IV PUSH .PER [facility] PROTOCOL [facility]; Protocol Last Admin: 08/08/19 05:00 Dose: 2 mg Miscellaneous (Ativan Pyxis Bates) 1 ea N/A .ATIVAN IV BATES PRN PRN Reason: PYXIS BATES Multivitamins/Minerals (Theragran/Minerals Tab*) 1 tab PO DAILY [facility] Last Admin: 08/08/19 08:46 Dose: 1 tab Ondansetron HCl (Zofran Inj*) 4 mg IV Q4H PRN PRN Reason: NAUSEA/VOMITING Vital Signs - 8 hr 08/08/19 08/08/19 08/08/19 04:38 05:00 05:14 Temperature 97 F Pulse Rate 106 Respiratory 16 16 16 Rate Blood Pressure 142/76 (mmHg) O2 Sat by Pulse 98 Oximetry 08/08/19 08/08/19 08/08/19 06:01 06:32 07:15 Temperature 97.5 F 96.6 F Pulse Rate 91 89 Respiratory 16 16 12 Rate Blood Pressure 113/87 132/88 (mmHg) O2 Sat by Pulse 96 100 Oximetry 08/08/19 08/08/19 08:00 09:42 Temperature Pulse Rate Respiratory 12 18 Rate Blood Pressure (mmHg) O2 Sat by Pulse Oximetry Oxygen Devices in Use Now: None Appearance: Middle aged male lying in bed, appears dazed but in NAD Eyes: No Scleral Icterus Ears/Nose/Mouth/Throat: Mucous Membranes Moist Respiratory: Symmetrical Chest Expansion and Respiratory Effort, Clear to Auscultation - anteriorly Cardiovascular: NL Sounds; No Murmurs; No JVD, RRR, No Edema Abdominal: NL Sounds; No Tenderness; No Distention Extremities: No Clubbing, Cyanosis Skin: No Nodules or Sclerosis Neurological: - - lying in bed with eyes open, dazed appearing but answers questions promptly (validity of his answers is questionable). Flaccid RUE, LUE tablet tester 4/5, proximal LUE strength 4+/5, pt able to straight raise lift arm off bed slightly Result Diagrams: 08/06/19 06:29 08/07/19 13:27 Microbiology and Other Data: Microbiology 08/04/19 10:47 Aerobic Blood Culture - Preliminary Blood Venous No Growth Day 1 Anaerobic Blood Culture - Preliminary No Growth Day 1 08/04/19 10:47 Aerobic Blood Culture - Preliminary Blood Venous No Growth Day 1 Anaerobic Blood Culture - Preliminary No Growth Day 1 Diagnostic Imaging: MRI BRAIN w/o contrast IMPRESSION: LARGE BILATERAL SYMMETRIC AREAS OF RESTRICTED DIFFUSION PRESENT WITHIN THE OCCIPITAL PARIETAL AND POSTERIOR FRONTAL LOBES MOST CONSISTENT WITH POSTERIOR REVERSIBLE ENCEPHALOPATHY SYNDROME LESS LIKELY INFARCTS. MRI BRAIN w/ contrast IMPRESSION: The pattern of symmetric signal alteration in the parieto-occipital regions and along the posterior MCA/DANIEL watershed territories is redemonstrated. There is questionable increased restricted diffusion the left temporal lobe and left cerebellar hemisphere. No convincing hemorrhage or enhancement. The overall constellation of findings is compatible with posterior reversible encephalopathy syndrome (this occasionally leads to infarct). Assess/Plan/Problems-Billing Mr Randall is a 63 yo male with PMHx alcohol use, HTN, crack cocaine use and tobacco abuse who presented to the ER with altered mental status and was ultimately identified to have PRES. - Patient Problems (1) PRES (posterior reversible encephalopathy syndrome) Current Visit: Yes Status: Acute Code(s): I67.83 - POSTERIOR REVERSIBLE ENCEPHALOPATHY SYNDROME SNOMED Code(s): 028185461 Comment: Pt with AMS on admission. He continues to be altered despite his BP normalizing. Clinical improvement may lag for days to weeks if he improves at all. Currently is sounds as if there has been no significant improvement over the last 4 days. Continue keppra for 14 days total. He will need repeat MRI in several weeks. He needs PT/OT and will need to be placed for STR. (2) Bilateral arm weakness Current Visit: Yes Status: Acute Code(s): R29.898 - OTH SYMPTOMS AND SIGNS INVOLVING THE MUSCULOSKELETAL SYSTEM SNOMED Code(s): 91324651724579731 Comment: Possibly secondary to central cord syndrome vs PRES with subsequent watershed infarcts. There does seem to be some improvement in the L UE strength , his R is still flacid. LE strength is normal. Continue Glascock J collar per neurosurgery-he may need cervical decompression but currently he is a very poor surgical candidate. Continue PT/OT and monitor for improvement. (3) Alcohol use Current Visit: Yes Status: Acute Code(s): Z72.89 - OTHER PROBLEMS RELATED TO LIFESTYLE SNOMED Code(s): 059454 Comment: Pt continues to score on the WAM protocol but secondary to confusion /agitation but I question if his acute neurologic issues are leading to those findings. Will continue ativan prn for now but he has been in the hospital for 4 days already and should be mostly through with EtOH withdrawal. Continue IV thiamine. (4) Hypertension Current Visit: Yes Status: Acute Code(s): I10 - ESSENTIAL (PRIMARY) HYPERTENSION SNOMED Code(s): 85297121 Comment: On admission pt with hypertensive emergecny. BP is now generally under ok control. He did have increased BP early this AM for which he received prn labetolol and hydralazine. Will stop these and monitor the BP. Continue lisinopril, atenolol and amlodipine. (5) Pulmonary emboli Current Visit: Yes Status: Acute Code(s): I26.99 - OTHER PULMONARY EMBOLISM WITHOUT ACUTE COR PULMONALE SNOMED Code(s): 11043133 Comment: Pt was diagnosed with PE in the RLL. Continue eliquis 10mg BID x7 days then 5mg BID. As he will be in a supervised setting it is felt to be safe to treat with anticoagulants at this time. (6) Depression Current Visit: Yes Status: Acute Code(s): F32.9 - MAJOR DEPRESSIVE DISORDER , SINGLE EPISODE, UNSPECIFIED SNOMED Code(s): 09427339 Comment: Continue home wellbutrin dose. (7) DVT prophylaxis Current Visit: Yes Status: Acute Code(s): Z29.9 - ENCOUNTER FOR PROPHYLACTIC MEASURES, UNSPECIFIED SNOMED Code(s): 962499892 Comment: david (8) Full code status Current Visit: Yes Status: Acute Code(s): Z78.9 - OTHER SPECIFIED HEALTH STATUS SNOMED Code(s): 896785752 Status and Disposition: inpatient pending further improvement, anticipate VALERIE at discharge
--- NOTE | 2019-08-08 14:45 | PN ---
Subjective Date of Service: 08/08/19 Length of Stay: 5 Days Interval History: Perhaps some improvement today with reported left arm movement. Remains very confused and mental status continues to wax and wane. No new weakness reported. At times, he is more agitated but reorients. Family History: Unchanged from Admission Social History: Unchanged from Admission Past Medical History: Unchanged from Admission Objective Active Medications: Acetaminophen (Tylenol Tab*) 650 mg PO Q4H PRN PRN Reason: MILD PAIN or TEMP > 100.4 Last Admin: 08/06/19 06:01 Dose: 650 mg Amlodipine Besylate (Norvasc Tab*) 5 mg PO DAILY [facility] Last Admin: 08/08/19 08:44 Dose: 5 mg Apixaban (Eliquis*) 10 mg PO BID [facility] Stop: 08/12/19 09:59 Last Admin: 08/08/19 08:44 Dose: 10 mg Atenolol (Tenormin Tab*) 100 mg PO QAM [facility] Last Admin: 08/08/19 08:45 Dose: 100 mg Atenolol (Tenormin Tab*) 50 mg PO BEDTIME [facility] Last Admin: 08/07/19 20:14 Dose: 50 mg Atorvastatin Calcium (Lipitor*) 40 mg PO 2100 [facility] Last Admin: 08/07/19 20:14 Dose: 40 mg Bupropion HCl (Bupropion Xl*) 300 mg PO DAILY [facility] Last Admin: 08/08/19 08:45 Dose: 300 mg Cyanocobalamin (Vitamin B12 Tab*) 1,000 mcg PO DAILY [facility] Last Admin: 08/08/19 08:45 Dose: 1,000 mcg Folic Acid (Folvite Tab*) 1 mg PO DAILY [facility] Last Admin: 08/08/19 08:46 Dose: 1 mg Levetiracetam (Keppra Iv Premix*) 500 mg in 100 mls @ 400 mls/hr IV Q12H [facility] Last Admin: 08/08/19 03:31 Dose: 400 mls/hr Thiamine HCl 500 mg/ Sodium (Chloride) 255 mls @ 255 mls/hr IV TID [facility] Last Admin: 08/08/19 14:32 Dose: 255 mls/hr Lisinopril (Prinivil Tab*) 20 mg PO DAILY [facility] Last Admin: 08/08/19 08:46 Dose: 20 mg Lorazepam (Ativan Inj*) 0 - 3 mg IV PUSH .PER [facility] PROTOCOL [facility]; Protocol Last Admin: 08/08/19 05:00 Dose: 2 mg Miscellaneous (Ativan Pyxis Bates) 1 ea N/A .ATIVAN IV BATES PRN PRN Reason: PYXIS BATES Multivitamins/Minerals (Theragran/Minerals Tab*) 1 tab PO DAILY [facility] Last Admin: 08/08/19 08:46 Dose: 1 tab Vital Signs 08/07/19 08/07/19 08/07/19 16:00 19:45 19:51 Temperature 99.7 F 99.1 F Pulse Rate 113 120 Respiratory 20 20 20 Rate Blood Pressure 138/90 130/86 (mmHg) O2 Sat by Pulse 96 98 Oximetry 08/07/19 08/07/19 08/07/19 20:12 22:51 23:15 Temperature 99 F Pulse Rate 114 Respiratory 20 18 20 Rate Blood Pressure 150/110 (mmHg) O2 Sat by Pulse 96 Oximetry 08/08/19 08/08/19 08/08/19 00:43 02:44 02:56 Temperature 98.6 F Pulse Rate 104 Respiratory 18 18 18 Rate Blood Pressure 155/104 (mmHg) O2 Sat by Pulse 100 Oximetry 08/08/19 08/08/19 08/08/19 04:38 05:00 05:14 Temperature 97 F Pulse Rate 106 Respiratory 16 16 16 Rate Blood Pressure 142/76 (mmHg) O2 Sat by Pulse 98 Oximetry 08/08/19 08/08/19 08/08/19 06:01 06:32 07:15 Temperature 97.5 F 96.6 F Pulse Rate 91 89 Respiratory 16 16 12 Rate Blood Pressure 113/87 132/88 (mmHg) O2 Sat by Pulse 96 100 Oximetry 08/08/19 08/08/19 08:00 09:42 Temperature Pulse Rate Respiratory 12 18 Rate Blood Pressure (mmHg) O2 Sat by Pulse Oximetry Intake and Output Last 24 Hours 08/06/19 08/07/19 08/08/19 08/09/19 06:59 06:59 06:59 06:59 Intake Total 8283 940 8224 240 Output Total 0 275 1525 1100 Balance 5218 220 8997 -860 Weight 143 lb Intake: IV Fluids 30 930 NS 930 keppra 30 IVPB 200 1409 NS 689 Thimaine 277 keppra 200 443 Oral 1190 800 740 240 Output: Urine 0 275 875 Deluna 650 1100 Other: Estimated Void Medium Medium # Bowel Movements 0 Estimated Stool Amount Medium # Voids 1 2 Oxygen Devices in Use Now: None Neurology Exam: General: Sitting in bedside chair, comfortable. HEENT: Normocephalic/atraumatic, sclera anicteric, mucous membranes moist Neck: [place] J in place Chest: Clear to auscultation bilaterally Cardiovascular: Regular rate and rhythm without murmurs Extremities: No clubbing, cyanosis, or edema. Skin is warm Neurological Findings: Awake, oriented to person, following simple commands Speech: Mild dysarthria. Soft-spoken Cranial Nerve: PERRL, EOM intact. Does not blink to threat , difficult exam, with no reported visual loss Motor: Legs 5/5 antigravity with no focal weakness. Able to sheep sticker my finger with left hand, otherwise flaccid throughout with no significant movement Sensation: Difficult to assess Deep Tendon Reflex: 1+ right bc, br 2+ left bc, br, 2+ knees, 0 at the ankles. Extensor plantar response on the right Result Diagrams: 08/06/19 06:29 08/07/19 13:27 Microbiology and Other Data: Microbiology 08/04/19 10:47 Aerobic Blood Culture - Preliminary Blood Venous No Growth Day 1 Anaerobic Blood Culture - Preliminary No Growth Day 1 08/04/19 10:47 Aerobic Blood Culture - Preliminary Blood Venous No Growth Day 1 Anaerobic Blood Culture - Preliminary No Growth Day 1 Diagnostic Imaging: MRI BRAIN w/o contrast IMPRESSION: LARGE BILATERAL SYMMETRIC AREAS OF RESTRICTED DIFFUSION PRESENT WITHIN THE OCCIPITAL PARIETAL AND POSTERIOR FRONTAL LOBES MOST CONSISTENT WITH POSTERIOR REVERSIBLE ENCEPHALOPATHY SYNDROME LESS LIKELY INFARCTS. MRI BRAIN w/ contrast IMPRESSION: The pattern of symmetric signal alteration in the parieto-occipital regions and along the posterior MCA/DANIEL watershed territories is redemonstrated. There is questionable increased restricted diffusion the left temporal lobe and left cerebellar hemisphere. No convincing hemorrhage or enhancement. The overall constellation of findings is compatible with posterior reversible encephalopathy syndrome (this occasionally leads to infarct). Assessment/Plan 63 year old with a history of alcohol abuse, intoxication on WAM protocol, admitted with sudden onset confusion, irritability, SBP in the 230s and DBP in the 130s initially. MRI findings on admission consistent with PRES with symptoms of cortical blindness, AMS and weakness but worsening weakness on the left side compared to the right and now bilaterally. MRI of the C-spine shows marked degenerative changes and neurosurgery is following. His mental status continues to wax and wane, vision symptoms persist and his weakness has stabilized 1. Acute hypertensive encephalopathy: Mental status seems to be waxing and waning which is likely result of PRES along with alcohol w/d and meds . The cause of his persistent UE weakness is somewhat unclear but I suspect this is ether from central cord syndrome or bilateral watershed ischemia related to PRES. I appreciate Neurosurgery input: not a good surgical candidate given co- morbidites at this time but may need decompression in the future. Utox was positive for cocaine and he reportedly smoked crack which may have caused a sudden increase in his blood pressure. --continue Keppra X 14 days total after MRI is done and imaging findings are improving. Seizure precautions --Repeat MRI in 14 days before stopping Keppra. If no improvement in the MRI findings, I would continue Keppra --I am hopeful that MS will improve over time. --BP control. --Repeat MRI in several weeks before stopping Keppra or if new neurologic symptoms develop. 2. UE weakness: As noted above suspect either Central cord or bilateral watershed ischemia leading to upper extremity weakness. Not a neurosurgical candidate at this time. Continue blood pressure control, on Eliquis 3. History of Alcohol use: --[facility] protocol --Thiamine/FA 4. PE: On Eliquis
--- NOTE | 2019-08-08 20:24 | PN ---
Progress Note - Progress Note Date of Service: 08/08/19 SOAP: Subjective: []No events ON. On ETOH protocol. MJ collar. Objective: []AAOx1 , CACHORRO, Face symmetric, tongue midline. Motor: UEs 0/5 except minimal journalist with UEs Left 4-/5, Right 3/5, 4-5 /5 LEs Sensory grossly intact to light touch. Limited exam due to mental status, grimaces to pain at all extremities. Assessment: []63 yom Possible PRESS vs [place] watershed infarcts, cervical spondylosis questionable central cord syndrome. Plan: [] ]Monitor VS, Neurochecks. May consider cervical decompression when medically cleared. Maintain MJ collar for now. Appreciate Neurology, IM care. Darryl Covington MD
[2019-08-08] MEDS: Atorvastatin* 40 MG TAB PO SCH (22:04)
[2019-08-09] MEDS: LORazepam INJ* 2 MG/ML 1 ML VIAL IV PUSH SCH (01:50)
[2019-08-09] MEDS: levETIRAcetam 500 MG IVPREMIX* 500 MG/100 ML BAG IV SCH (04:03)
--- NOTE | 2019-08-09 07:28 | PN ---
Subjective Date of Service: 08/09/19 Interval History: Pt is feeling ok. He asks for ice cream when I enter the room. He is more agitated now than he was yesterday. He denies any pain. No SOB. Objective Active Medications: Acetaminophen (Tylenol Tab*) 650 mg PO Q4H PRN PRN Reason: MILD PAIN or TEMP > 100.4 Last Admin: 08/06/19 06:01 Dose: 650 mg Amlodipine Besylate (Norvasc Tab*) 10 mg PO DAILY [facility]S [facility] Apixaban (Eliquis*) 10 mg PO BID [facility] Stop: 08/12/19 09:59 Last Admin: 08/08/19 22:04 Dose: 10 mg Atenolol (Tenormin Tab*) 100 mg PO QAM [facility] Last Admin: 08/08/19 08:45 Dose: 100 mg Atenolol (Tenormin Tab*) 50 mg PO BEDTIME [facility] Last Admin: 08/08/19 22:04 Dose: 50 mg Atorvastatin Calcium (Lipitor*) 40 mg PO 2100 [facility] Last Admin: 08/08/19 22:04 Dose: 40 mg Bupropion HCl (Bupropion Xl*) 300 mg PO DAILY [facility] Last Admin: 08/08/19 08:45 Dose: 300 mg Cyanocobalamin (Vitamin B12 Tab*) 1,000 mcg PO DAILY [facility] Last Admin: 08/08/19 08:45 Dose: 1,000 mcg Folic Acid (Folvite Tab*) 1 mg PO DAILY [facility] Last Admin: 08/08/19 08:46 Dose: 1 mg Levetiracetam (Keppra Iv Premix*) 500 mg in 100 mls @ 400 mls/hr IV Q12H [facility] Last Admin: 08/09/19 04:03 Dose: 400 mls/hr Thiamine HCl 500 mg/ Sodium (Chloride) 255 mls @ 255 mls/hr IV TID [facility] Last Admin: 08/08/19 22:42 Dose: 255 mls/hr Lisinopril (Prinivil Tab*) 20 mg PO DAILY [facility] Last Admin: 08/08/19 08:46 Dose: 20 mg Lorazepam (Ativan Inj*) 0 - 3 mg IV PUSH .PER [place] PROTOCOL [facility]S [facility]; Protocol Last Admin: 08/09/19 01:50 Dose: 1.5 mg Miscellaneous (Ativan Pyxis Bates) 1 ea N/A .ATIVAN IV BATES PRN PRN Reason: PYXIS BATES Multivitamins/Minerals (Theragran/Minerals Tab*) 1 tab PO DAILY [facility] Last Admin: 08/08/19 08:46 Dose: 1 tab Vital Signs - 8 hr 08/09/19 08/09/19 08/09/19 00:32 01:41 01:50 Temperature 97.3 F Pulse Rate 92 94 Respiratory 16 18 18 Rate Blood Pressure 131/90 143/102 (mmHg) O2 Sat by Pulse 99 Oximetry 08/09/19 08/09/19 03:15 03:32 Temperature 97.8 F Pulse Rate 94 Respiratory 20 18 Rate Blood Pressure 158/104 (mmHg) O2 Sat by Pulse 100 Oximetry Oxygen Devices in Use Now: None Appearance: Middle aged male lying in bed, NAD Eyes: No Scleral Icterus Ears/Nose/Mouth/Throat: Mucous Membranes Moist Respiratory: Symmetrical Chest Expansion and Respiratory Effort, Clear to Auscultation - anteriorly Cardiovascular: NL Sounds; No Murmurs; No JVD, RRR, No Edema Abdominal: NL Sounds; No Tenderness; No Distention Extremities: No Clubbing, Cyanosis Skin: No Nodules or Sclerosis Neurological: - - alert, when asked the year he states "[birth year]" when asked the month he states "July;" he was able to push himself up on L>>>R elbow to a partially upright position, radio journalist on the L 4/5. R UE remains flaccid Result Diagrams: 08/06/19 06:29 08/07/19 13:27 Microbiology and Other Data: Microbiology 08/04/19 10:47 Aerobic Blood Culture - Preliminary Blood Venous No Growth Day 1 Anaerobic Blood Culture - Preliminary No Growth Day 1 08/04/19 10:47 Aerobic Blood Culture - Preliminary Blood Venous No Growth Day 1 Anaerobic Blood Culture - Preliminary No Growth Day 1 Diagnostic Imaging: MRI BRAIN w/o contrast IMPRESSION: LARGE BILATERAL SYMMETRIC AREAS OF RESTRICTED DIFFUSION PRESENT WITHIN THE OCCIPITAL PARIETAL AND POSTERIOR FRONTAL LOBES MOST CONSISTENT WITH POSTERIOR REVERSIBLE ENCEPHALOPATHY SYNDROME LESS LIKELY INFARCTS. MRI BRAIN w/ contrast IMPRESSION: The pattern of symmetric signal alteration in the parieto-occipital regions and along the posterior MCA/DANIEL watershed territories is redemonstrated. There is questionable increased restricted diffusion the left temporal lobe and left cerebellar hemisphere. No convincing hemorrhage or enhancement. The overall constellation of findings is compatible with posterior reversible encephalopathy syndrome (this occasionally leads to infarct). Assess/Plan/Problems-Billing Mr Randall is a 63 yo male with PMHx alcohol use, HTN, crack cocaine use and tobacco abuse who presented to the ER with altered mental status and was ultimately identified to have PRES. - Patient Problems (1) PRES (posterior reversible encephalopathy syndrome) Current Visit: Yes Status: Acute Code(s): I67.83 - POSTERIOR REVERSIBLE ENCEPHALOPATHY SYNDROME SNOMED Code(s): 427342698 Comment: Pt with AMS on admission. He continues to be altered despite his BP normalizing maybe a component of EtOH withdrawal but seems less likely as he is now several days into his hospitalization. Clinical improvement from PRES may lag for days to weeks if he improves at all. Will clarify with neuro how long to keep the keppra on board and when to repeat the MRI. He needs PT/OT and will need to be placed for STR. (2) Bilateral arm weakness Current Visit: Yes Status: Acute Code(s): R29.898 - OTH SYMPTOMS AND SIGNS INVOLVING THE MUSCULOSKELETAL SYSTEM SNOMED Code(s): 12860173772934617 Comment: Possibly secondary to central cord syndrome vs PRES with subsequent watershed infarcts. There does seem to be some improvement in the L UE strength , his R is still flaccid. LE strength is normal. Continue Glenn J collar per neurosurgery-he may need cervical decompression but currently he is a very poor surgical candidate. Continue PT/OT and monitor for improvement. (3) Alcohol use Current Visit: Yes Status: Acute Code(s): Z72.89 - OTHER PROBLEMS RELATED TO LIFESTYLE SNOMED Code(s): 475034 Comment: Will stop WAM protocol. If he starts showing other signs of EtOH withdrawal other than agitation will consider resuming but for now, I think his agitation may be related to his confusion and being unaware of his current situation. Continue IV thiamine. (4) Hypertension Current Visit: Yes Status: Acute Code(s): I10 - ESSENTIAL (PRIMARY) HYPERTENSION SNOMED Code(s): 65187349 Comment: On admission pt with hypertensive emergency. BP today moderately elevated. Continue lisinopril, atenolol and amlodipine but will increase amlodipine to 10mg daily. (5) Pulmonary emboli Current Visit: Yes Status: Acute Code(s): I26.99 - OTHER PULMONARY EMBOLISM WITHOUT ACUTE COR PULMONALE SNOMED Code(s): 84185561 Comment: Pt was diagnosed with PE in the RLL. Continue eliquis 10mg BID x7 days then 5mg BID. As he will be in a supervised setting it is felt to be safe to treat with anticoagulants at this time. (6) Depression Current Visit: Yes Status: Acute Code(s): F32.9 - MAJOR DEPRESSIVE DISORDER , SINGLE EPISODE, UNSPECIFIED SNOMED Code(s): 92521609 Comment: Continue home wellbutrin dose. (7) DVT prophylaxis Current Visit: Yes Status: Acute Code(s): Z29.9 - ENCOUNTER FOR PROPHYLACTIC MEASURES, UNSPECIFIED SNOMED Code(s): 813804650 Comment: david (8) Full code status Current Visit: Yes Status: Acute Code(s): Z78.9 - OTHER SPECIFIED HEALTH STATUS SNOMED Code(s): 975627163 Status and Disposition: will need STR on discharge
[2019-08-09] MEDS: Atenolol TAB* 50 MG PO SCH (08:15)
[2019-08-09] MEDS: Cyanocobalamin TAB* 500 MCG PO SCH (08:15)
[2019-08-09] MEDS: Apixaban* 5 MG TAB PO SCH (08:15)
[2019-08-09] MEDS: Folic Acid TAB* 1 MG PO SCH (08:15)
[2019-08-09] MEDS: Multivitamins/Minerals TAB PO SCH (08:15)
[2019-08-09] MEDS: BuPROPion XL* 300 MG TAB.XL PO SCH (08:15)
[2019-08-09] MEDS: Lisinopril TAB* 10 MG PO SCH (08:15)
--- NOTE | 2019-08-09 08:48 | PN ---
Subjective Length of Stay: 6 Days Neurology is following [] for the evaluation and management of [] Interval History: Remains intermittently agitated and very confused. He does follow some commands. Nurse reports that earlier, there was reported flexion of both arms in the arms, left > right but no movement with me. No other issues reported overnight. Review of Systems: Denied CP, SOB, or palpitations. Family History: Unchanged from Admission Social History: Unchanged from Admission Past Medical History: Unchanged from Admission Objective Active Medications: Acetaminophen (Tylenol Tab*) 650 mg PO Q4H PRN PRN Reason: MILD PAIN or TEMP > 100.4 Last Admin: 08/06/19 06:01 Dose: 650 mg Amlodipine Besylate (Norvasc Tab*) 10 mg PO DAILY [facility] Apixaban (Eliquis*) 10 mg PO BID [facility] Stop: 08/12/19 09:59 Last Admin: 08/08/19 22:04 Dose: 10 mg Atenolol (Tenormin Tab*) 100 mg PO QAM [facility] Last Admin: 08/08/19 08:45 Dose: 100 mg Atenolol (Tenormin Tab*) 50 mg PO BEDTIME [facility] Last Admin: 08/08/19 22:04 Dose: 50 mg Atorvastatin Calcium (Lipitor*) 40 mg PO 2100 [facility] Last Admin: 08/08/19 22:04 Dose: 40 mg Bupropion HCl (Bupropion Xl*) 300 mg PO DAILY [facility] Last Admin: 08/08/19 08:45 Dose: 300 mg Cyanocobalamin (Vitamin B12 Tab*) 1,000 mcg PO DAILY [facility] Last Admin: 08/08/19 08:45 Dose: 1,000 mcg Folic Acid (Folvite Tab*) 1 mg PO DAILY [facility] Last Admin: 08/08/19 08:46 Dose: 1 mg Levetiracetam (Keppra Iv Premix*) 500 mg in 100 mls @ 400 mls/hr IV Q12H [facility] Last Admin: 08/09/19 04:03 Dose: 400 mls/hr Thiamine HCl 500 mg/ Sodium (Chloride) 255 mls @ 255 mls/hr IV TID [facility] Last Admin: 08/08/19 22:42 Dose: 255 mls/hr Lisinopril (Prinivil Tab*) 20 mg PO DAILY [facility] Last Admin: 08/08/19 08:46 Dose: 20 mg Multivitamins/Minerals (Theragran/Minerals Tab*) 1 tab PO DAILY [facility] Last Admin: 08/08/19 08:46 Dose: 1 tab Vital Signs 08/08/19 08/08/19 08/08/19 09:42 19:22 19:30 Temperature 98.4 F Pulse Rate 92 Respiratory 18 18 Rate Blood Pressure 142/106 158/104 (mmHg) O2 Sat by Pulse 99 Oximetry 08/08/19 08/08/19 08/08/19 20:00 21:44 23:15 Temperature 97.3 F 97.8 F Pulse Rate 93 100 Respiratory 18 18 18 Rate Blood Pressure 136/78 168/104 (mmHg) O2 Sat by Pulse 99 99 Oximetry 08/09/19 08/09/19 08/09/19 00:32 01:41 01:50 Temperature 97.3 F Pulse Rate 92 94 Respiratory 16 18 18 Rate Blood Pressure 131/90 143/102 (mmHg) O2 Sat by Pulse 99 Oximetry 08/09/19 08/09/19 08/09/19 03:15 03:32 07:15 Temperature 97.8 F 97.4 F Pulse Rate 94 91 Respiratory 20 18 22 Rate Blood Pressure 158/104 152/94 (mmHg) O2 Sat by Pulse 100 100 Oximetry Intake and Output Last 24 Hours 08/07/19 08/08/19 08/09/19 08/10/19 06:59 06:59 06:59 06:59 Intake Total 800 3079 1315 Output Total 275 1525 3050 Balance 525 1554 -1735 Weight 143 lb Intake: IV Fluids 930 15 NS 930 15 IVPB 1409 700 NS 689 Thimaine 277 500 keppra 443 200 Oral 800 740 600 Output: Urine 275 875 Deluna 650 3050 Other: Estimated Void Medium # Bowel Movements 1 Estimated Stool Amount Small # Voids 2 Oxygen Devices in Use Now: None Neurology Exam: General: Lying in bed, agitated HEENT: Normocephalic/atraumatic, sclera anicteric, mucous membranes moist. Bilateral cataracts Neck: [place] J in place Chest: Clear to auscultation bilaterally Cardiovascular: Regular rate and rhythm without murmurs Extremities: No clubbing, cyanosis, or edema. Skin is warm, no lesions Neurological Findings: Awake, oriented to person, following simple commands intermittently Speech: No significant dysarthria Cranial Nerve: PERRL, EOM intact. Does not blink to threat , and does not count fingers or see me standing at bedside. States "I can't see." Motor: Legs 5/5 antigravity with no focal weakness. 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 There may be an effort dependent component but does appear flaccid overall in the upper extremities with decreased tone Sensation: Difficult to assess Deep Tendon Reflex: Difficult to assess this am, would not comply with my exam, no hyper-refelxia appreciated. Result Diagrams: 08/06/19 06:29 08/07/19 13:27 Microbiology and Other Data: Microbiology 08/04/19 10:47 Aerobic Blood Culture - Preliminary Blood Venous No Growth Day 1 Anaerobic Blood Culture - Preliminary No Growth Day 1 08/04/19 10:47 Aerobic Blood Culture - Preliminary Blood Venous No Growth Day 1 Anaerobic Blood Culture - Preliminary No Growth Day 1 Diagnostic Imaging: MRI BRAIN IMPRESSION: LARGE BILATERAL SYMMETRIC AREAS OF RESTRICTED DIFFUSION PRESENT WITHIN THE OCCIPITAL PARIETAL AND POSTERIOR FRONTAL LOBES MOST CONSISTENT WITH POSTERIOR REVERSIBLE ENCEPHALOPATHY SYNDROME LESS LIKELY INFARCTS. Repeat MRI pending Assessment/Plan Records reviewed: 63 year old with a history of alcohol abuse, intoxication on WAM protocol, admitted with sudden onset confusion, irritability, SBP in the 230s and DBP in the 130s initially. MRI findings on admission consistent with PRES with symptoms of cortical blindness, AMS and weakness but worsening weakness on the left side compared to the right and now bilaterally. MRI of the C-spine shows marked degenerative changes and neurosurgery is following. His mental status continues to wax and wane, vision symptoms persist and his weakness has worsened. 1. AMS: His mental status continues to wax and wane. He is now 5 days out from last drink, WAM protocol has been discontinued. It is less likely that w/d is the cause of his waxing and waning confusion. AMS remains consistent with PRES with the possibility of bilateral ischemia. His chronic use of alcohol and drugs have likely left him with poor brain reserve making him even more suceptible to deliirim. --Continue blood pressure control --Continue Keppra: I would recommend rechecking an MRI in about 14 days. If his MRI is improving or resolved, it is ok to wean off of Keppra. If no improvement in MRI, I would continue Keppra for an additional 14-30 days and recheck an MRI for improvement. --Can switch to PO Keppra when he is safely and reliable taking PO --When the time comes, I would wean down to 250 mg po bid for 2 week and then stop. --PRN Ativan for agitation --Cocaine use has been associated with a vasculitis, that can be generalized. While my suspicion that his brain findings are related to an underlying vasculitic picture, I will check an ANCA, C3, C4. If strongly positive, we may want to continue steroids. 2. Bilateral upper extremity weakness: Unclear etiology but this could be from central cord vs. bilateral watershed ischemia --Neurosurgery is following, appreciate input. Defer continuation of [place] and possible surgical intervention to Neurosurgery. --If this is due to ischemia, it is likely secondary to PRES presentation. --Continue tight BP control --Group Home drug cessation. Cocaine very well may have contributed to his severe blood pressure spike --He is currently on Eliquis, would hold on additional anti-platelet at this time 3. PE: On Eliquis, medical team is following 4. History of polysubstance use: Will need long-term, outpatient counseling. Continue Thiamine, Folic Acid 5. PT/OT: Will need further extensive PT/OT on discharge given arm weakness.
[2019-08-09] MEDS ORDERED: amLODIPine TAB* 5 MG PO SCH (09:00)
[2019-08-09] MEDS: Thiamine INJ* 500 MG in NS 0.9% 250 ML* 250 ML IV SCH (10:49)
[2019-08-09 12:07] VITALS: BP 136/99
--- NOTE | 2019-08-09 13:34 | DS ---
CC: Dr. Crespo; Dr. Rivera; Dr. Lebron; Dr. Covington DATE OF ADMISSION: 08/03/2019. DATE OF DISCHARGE: 08/09/2019. PRIMARY CARE PHYSICIAN: Dr. Crespo. PRINCIPAL DIAGNOSES: 1. 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 2. Bilateral upper extremity weakness likely secondary to PRES and watershed infarcts, though centra l cord syndrome is a possibility. 3. Right lower lobe pulmonary embolism. SECONDARY DIAGNOSES: 1. Alcohol abuse. 2. Crack cocaine use. 3. Hypertension. 4. Depression. DISCHARGE MEDICATIONS: 1. Atenolol 50 mg p.o. q.p.m., 100 mg p.o. q.a.m. 2. Multivitamin one tab p.o. daily. 3. Lisinopril 20 mg p.o. daily. 4. Vitamin B12 1,000 mcg p.o. daily. 5. Vitamin D 2,000 units p.o. daily. 6. Bupropion XL 300 mg p.o. daily. 7. Amlodipine 10 mg p.o. daily. 8. Folic acid 1 mg p.o. daily. 9. Lipitor 40 mg p.o. at bedtime. 10. Eliquis 10 mg p.o. b.i.d. times 6 doses, then 5 mg p.o. b.i.d. HOSPITAL COURSE: Mr. Randall is a 63-year-old male with a known history of alcohol abuse who prese nted to the emergency room on 08/03/2019 after he was found sitting in a chair at home in the same po sition that the patient's friend had seen him the day prior. He was noted to be altered in terms of his mentation. He was unable to push himself up out of the chair. EMS arrived and a code perez was c alled. The patient had an initial NIH stroke scale score of 10. Additionally, the patient was found to have an alcohol level of 87 at that time. The patient was seen in consultation in the emergency room by Dr. Rivera. It was felt that the patient had acute encephalopathy of unclear etiology, possib ly toxic metabolic, possibly secondary to thiamine or B12 deficiency versus hypertensive encephalopat hy causing posterior reversible encephalopathy syndrome. Ultimately it was identified that the patie nt had smoked crack the night prior to his presentation. It is now subsequently thought that perhaps the crack caused an abrupt spike in his blood pressure leading to PRES. MRI of the brain obtained o n 08/04/2019 revealed large bilateral symmetric areas of restricted diffuse present within the occipi iggy parietal and posterior frontal lobes most consistent with posterior reversible encephalopathy syn drome and less likely infarcts. The patient also underwent CTA of the chest on 08/04/2019. This rev ealed acute pulmonary emboli in the subsegmental pulmonary artery supplying the posterior basal segme nt of the right lower lobe. There is no pulmonary infarct or CT evidence of right ventricular strain . There is paraseptal and centrilobular emphysematous changes in both lungs. There is mucus plugging and atelectasis in the posterior segment of the left lower lobe. The patient underwent transthoraci c echocardiogram on 08/04/2019. This revealed an EF of 60 to 65 percent. No diagnostic regional wal l motion abnormalities were identified, but the possibility of wall motion abnormalities cannot be co mpletely excluded on the basis of this study. PFO was not demonstrated. A small pericardial effusio n is identified. There is no evidence of hemodynamic compromise. Follow-up neurology evaluation on 08/04/2019 recommended starting the patient on aspirin and Lipitor. His blood pressure goal was to b ecome in the normotensive range with systolic blood pressures from 120 to 160 and diastolic blood pre ssures from 80 to 100. There was no seizure activity identified on the EEG. The patient is to brinda nue on Keppra 500 mg twice daily for 14 days. The patient was also identified to have bilateral upper extremity weakness. He underwent MRI of the cervical spine on 08/06/2019 that revealed grade one spondylolisthesis of C2 on C3 with broad based p rotrusion and moderate degree of spinal stenosis and bilateral foraminal stenosis. At C3-4, spondyli tic ridge with bilateral foraminal stenosis and flattening of the ventral spinal cord resulting in mi ld to moderate spinal stenosis. At C4-5, spondylitic ridge flattens the thecal sac. Bilateral uncov ertebral joint hypertrophy narrows both foramina. At C5-6, spondylitic ridge with bilateral uncovert ebral joint hypertrophy narrowing for foramina. At C6-7, bilateral uncovertebral joint hypertrophy n arrows both foramina. The patient was also x-rayed of the thoracolumbar spine, shoulder, elbow, and upper arm. These were all negative for acute pathology, though he was found to have interval progres digna of glenohumeral joint osteoarthritis. The patient was seen by Dr. Covington in consultation du e to his bilateral upper extremity weakness and concern for central cord syndrome. Dr. Covington fe lt that the etiology of his upper extremity weakness was not clear. He does have a suspicion for aman tral cord syndrome given the significance of the stenosis and possible trauma that was related to the medical team from the patient's friend. It was also thought, however, that PRES may be the possible cause of his bilateral upper extremity weakness. It was felt that the patient may benefit from post erior cervical decompression and fusion once he is medically stable; however, at this time the patien t is not optimized. It is recommended to maintain the patient in the [place] J collar. Repeat brain MRI was obtained on 08/07/2019. There was questionable increased restricted diffusion i n the left temporal lobe and left cerebellar hemisphere. There is no convincing hemorrhage or enhance ment. The overall constellation of findings is compatible with posterior reversible encephalopathy s yndrome. The concern is that the patient may have progressed the PRES to bilateral watershed infarct s leading to his upper extremity weakness. The patient has had variable response to people asking hi m to move his arms. 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 The patient remains altered. He is confus ed at times and sometimes agitated. He had been on a WAM protocol due to his history of alcohol abus e. He was initially scoring routinely, however has become much more sporadic and I believe the patie nt is scoring on the WAM protocol due to agitation related to PRES syndrome and his bilateral cortica l blindness and not alcohol withdrawal. The WAM protocol has since been stopped. The patient, at this point, is felt to need time and blood pressure management to see if the MRI find ings improve. The patient is to have an MRI done in 12 to 14 days. If the MRI is improved, the Kepp ra can be discontinued. If the MRI continues to show restricted diffusion, he should remain on Keppr a for another 30 days. At the end of that 30 days, he should undergo repeat MRI again. Do not stop the Keppra until the MRI shows improvement. The patient will need follow-up with Dr. Covington in the next two to four weeks. Additionally, he s hould follow-up with Dr. Rivera in the Neurology office in one to two weeks. If an appointment with Ari Rivera is not available, the patient can follow-up with Dr. Lebron. In summary, the patient is felt to have PRES syndrome with possible bilateral watershed infarcts with resultant altered mental status, cortical blindness, and bilateral upper extremity weakness. Howeve r, it is possible the bilateral upper extremity weakness is secondary to central cord syndrome. The patient is to remain in his [place] collar at all times except for showers. The patient will need fo llow-up with Dr. Covington in approximately two to four weeks. The patient needs an MRI in 12 to 14 days and if the MRI shows improvement, the Keppra can be discontinued. If it does not show improvem ent, the patient should be maintained on Keppra for another 30 days with a follow-up MRI at the end o f that time. The MRI should show improvement before the Keppra is discontinued. The patient should follow-up with Dr. Rivera in the next one to two weeks. The patient will need daily blood pressure mo nitoring. His systolic blood pressure should remain in the 120 to 160 range and his diastolic blood pressure should remain 80 to 100. Currently, he is receiving Lisinopril, Atenolol, and Amlodipine fo r blood pressure control. These doses may need to be adjusted if he is not having adequate blood pres sure control. The patient is to return to the emergency room for any new neurologic findings, severe hypertension, or any other concerning symptoms. FOLLOW-UP CONCERNS: The patient is being discharged to [facility] today, 08/09/2019. ACTIVITY LEVEL: As tolerated. DIET: Regular. CONDITION ON DISCHARGE: Guarded, but stable. TIME SPENT: Fifty minutes were spent on the discharge of this patient. [id number]/[facility] #: [id number]
[2019-08-10 22:41] LABS: Complement C3 132 mg/dL (75 - 175)
== END 2019-08-09 13:25 | DRG 52 ==
LOC: ED 16:23 → MEDTELE 18:41 → OBSVTOIN 08-04 15:03 → MEDTELE 08-05 18:11
PROVIDERS: ADMIT Internal Medicine; ATTEND Hospitalist
PROC: 4A00X4Z Measurement of Central Nervous Electrical Activity, External Approach (ICD-10-PCS; principal; 2019-08-04)
DX: I67.83 Posterior reversible encephalopathy syndrome (principal); I63.9 Cerebral infarction, unspecified; I26.99 Other pulmonary embolism without acute cor pulmonale; E87.2 Acidosis; G83.24 Monoplegia of upper limb affecting left nondominant side; I10 Essential (primary) hypertension; F32.9 Major depressive disorder, single episode, unspecified; F17.210 Nicotine dependence, cigarettes, uncomplicated; R29.710 NIHSS score 10; G83.21 Monoplegia of upper limb affecting right dominant side; R09.02 Hypoxemia; M48.02 Spinal stenosis, cervical region; R00.0 Tachycardia, unspecified; F10.10 Alcohol abuse, uncomplicated; Y90.4 Blood alcohol level of 80-99 mg/100 ml; R47.1 Dysarthria and anarthria; R41.89 Other symptoms and signs involving cognitive functions and awareness; M47.22 Other spondylosis with radiculopathy, cervical region; H47.612 Cortical blindness, left side of brain; H47.611 Cortical blindness, right side of brain; Z91.81 History of falling; Z79.01 Long term (current) use of anticoagulants
CPT/HCPCS: 36415; 70030; 70450; 70496; 70498; 70551; 70552; 71046; 71275; 72080; 72125; 72141; 74018; 80048; 80053; 80061; 80307; 80320; 81003; 81015; 82085; 82140; 82533; 82550; 82607; 82746; 83036; 83516; 83605; 83874; 84425; 84439; 84443; 84484; 85025; 85379; 86160; 87040; 93005; 93306; 95819; 96374; 99285; 99406; A9270-GY; A9579; G0480; J0360; J1644; J1650; J1953; J2060; J3360; J3411; J3420; J3490; Q9967

== ENCOUNTER 2021-07-23 12:37 | Inpatient (IN) ==
[2021-07-23 14:47] LABS: ABS Lymphocytes 0.6 10^3/ul (1.0-4.8); ABS Monocytes 1.3 10^3/ul (0-0.8); ABS Neutrophils 7.3 10^3/ul (1.5-7.7); Hematocrit 41 % (42-52); Hemoglobin 13.9 g/dL (14.0-18.0); Lymphocyte % 6.8 %; Mean Corpuscular HGB Conc 34 g/dL (31-36); Mean Corpuscular Hemoglobin 31 pg (27-31); Mean Corpuscular Volume 91 fL (80-94); Mean Platelet Volume 8.4 fL (7.4-10.4); Nucleated Red Blood Cells % 0.1; Platelet Count 217 10^3/uL (150-450); Red Blood Count 4.45 10^6 /uL (4.18-5.48); Red Cell Distribution Width 13 % (10-15); White Blood Count 9.3 10^3/uL (3.5-10.8)
[2021-07-23 15:00] LABS: ALT 36 U/L (7-52); Albumin 4.5 g/dL (3.2-5.2); Albumin/Globulin Ratio 1.6 (1-3); Alkaline Phosphatase 73 U/L (35-149); Blood Urea Nitrogen 25 mg/dL (6-24); CO2 Carbon Dioxide 27 mmol/L (22-32); Calcium 9.1 mg/dL (8.6-10.3); Chloride 101 mmol/L (101-111); Globulin 2.9 g/dL (2-4); Glucose 91 mg/dL (70-100); Sodium 136 mmol/L (135-145); Total Protein 7.4 g/dL (6.4-8.9); eGFR CKD-EPI 72.3 (>60)
[2021-07-23 15:01] LABS: Troponin I 0.01 ng/mL (<0.03)
[2021-07-23 15:30] LABS: Anion Gap 8 mmol/L (2-11); Creatine Kinase 2533 U/L (10-223)
[2021-07-23] MEDS ORDERED: Iohexol 350 (CONTRAST) 500 ML MDV IV ONE (15:31)
[2021-07-23] MEDS ORDERED: NS 0.9% 1000 ml BAG 1,000 ML IV ONE (15:39)
[2021-07-23 16:07] LABS: TSH Ultra Thyroid Stim Horm 0.24 mcIU/mL (0.34-5.60)
[2021-07-23 17:20] LABS: Magnesium 1.6 mg/dL (1.9-2.7); Potassium Redraw 3.8 mmol/L (3.5-5.0)
[2021-07-23] MEDS ORDERED: Lactated Ringers 1000 ml BAG 1,000 ML IV SCH (18:00)
[2021-07-23] MEDS: Enoxaparin 40 MG/0.4 ML SYR SUBCUT SCH (19:09)
[2021-07-23 23:41] LABS: HDL Cholesterol 34.2 mg/dL
[2021-07-24] MEDS ORDERED: Lactated Ringers 1000 ml BAG 1,000 ML IV SCH (07:04)
[2021-07-24 07:45] LABS: Hematocrit 39 % (42-52); Hemoglobin 13.1 g/dL (14.0-18.0); Mean Corpuscular HGB Conc 34 g/dL (31-36); Mean Corpuscular Hemoglobin 31 pg (27-31); Mean Corpuscular Volume 91 fL (80-94); Mean Platelet Volume 7.9 fL (7.4-10.4); Platelet Count 193 10^3/uL (150-450); Red Blood Count 4.22 10^6 /uL (4.18-5.48); Red Cell Distribution Width 12 % (10-15); White Blood Count 6.5 10^3/uL (3.5-10.8)
[2021-07-24 08:20] LABS: Calcium 8.5 mg/dL (8.6-10.3); Potassium 3.6 mmol/L (3.5-5.0); eGFR CKD-EPI 72.3 (>60)
[2021-07-24] MEDS: Multivitamins/Minerals TAB PO SCH (08:27)
[2021-07-24 09:39] LABS: Vitamin B12 1136 pg/mL (180-914)
[2021-07-24] MEDS: Lactated Ringers 1000 ml BAG 1,000 ML IV SCH ×2 (14:40→21:30)
[2021-07-24] MEDS ORDERED: Thiamine 100 MG/ML 2 ml VIAL (200 mg) IM ONE (15:31)
[2021-07-24] MEDS: Enoxaparin 40 MG/0.4 ML SYR SUBCUT SCH (16:28)
[2021-07-24 17:45] LABS: Urine Appearance Clear; Urine Bilirubin Negative (Negative); Urine Blood Negative (Negative); Urine Color Yellow; Urine Glucose Negative (Negative); Urine Ketones Trace (Negative); Urine Nitrite Negative (Negative); Urine Protein 2+(100 mg/dL) (Negative); Urine Specific Gravity 1.036 (1.002-1.030); Urine Urobilinogen Negative (Negative)
[2021-07-24 17:49] LABS: Urine Benzodiazepine Screen None Detected (None Detect); Urine Cannabinoids Screen None Detected (None Detect); Urine Opiates Screen None Detected (None Detect)
[2021-07-24 17:53] LABS: Urine Amorphous Crystals Present (Absent); Urine Bacteria 3+ (Absent); Urine Red Blood Cell Trace(0-2/hpf) (Absent); Urine Squamous Epithelial Cell Present (Absent); Urine White Blood Cell Trace(0-5/hpf) (Absent)
[2021-07-24 18:15] LABS: Total T3 81 ng/dL (87-178)
[2021-07-25] MEDS: Lactated Ringers 1000 ml BAG 1,000 ML IV SCH (06:11)
[2021-07-25 07:56] LABS: Albumin 3.2 g/dL (3.2-5.2); Albumin/Globulin Ratio 1.3 (1-3); Calcium 7.9 mg/dL (8.6-10.3); Globulin 2.4 g/dL (2-4); Potassium 3.2 mmol/L (3.5-5.0); Total Bilirubin 0.7 mg/dL (0.2-1.0); Total Protein 5.6 g/dL (6.4-8.9); eGFR CKD-EPI 72.3 (>60)
[2021-07-25] MEDS ORDERED: cefTRIAXone 1 gm/50 mL NS BAG 1 GM/50 ML BAG IVPB SCH (09:00)
[2021-07-25] MEDS: Multivitamins/Minerals TAB PO SCH (09:22)
[2021-07-25] MEDS ORDERED: Potassium Chlor 20 meq TAB.ER PO ONE (12:15)
[2021-07-25 13:30] LABS: Magnesium 1.3 mg/dL (1.9-2.7)
[2021-07-25] MEDS ORDERED: Magnesium Sulf 4 GM/100 ML IV 4,000 MG/100 ML BAG IVPB ONE (14:08)
[2021-07-25] MEDS ORDERED: Gadoteridol (CONTRAST) 279.3 MG/ML 10 ML IV ONE (16:31)
[2021-07-25] MEDS: Enoxaparin 40 MG/0.4 ML SYR SUBCUT SCH (16:57)
[2021-07-26] MEDS: Multivitamins/Minerals TAB PO SCH (07:51)
[2021-07-26 08:03] LABS: Hematocrit 35 % (42-52); Hemoglobin 12.2 g/dL (14.0-18.0); Mean Corpuscular HGB Conc 35 g/dL (31-36); Mean Corpuscular Hemoglobin 31 pg (27-31); Mean Corpuscular Volume 90 fL (80-94); Mean Platelet Volume 7.3 fL (7.4-10.4); Platelet Count 181 10^3/uL (150-450); Red Blood Count 3.91 10^6 /uL (4.18-5.48); Red Cell Distribution Width 13 % (10-15); White Blood Count 3.8 10^3/uL (3.5-10.8)
[2021-07-26 08:20] LABS: Calcium 7.7 mg/dL (8.6-10.3); Magnesium 1.7 mg/dL (1.9-2.7); Potassium 3.1 mmol/L (3.5-5.0); eGFR CKD-EPI 76.3 (>60)
[2021-07-26] MEDS ORDERED: Magnesium Sulfate 2 gm BAG 2 GM/50 ML BAG IVPB ONE (09:52)
[2021-07-26] MEDS: KCL 20 MEQ/100 ML IVPREMIX 20 MEQ/100 ML BAG IV SCH ×3 (12:21→17:08)
[2021-07-26] MEDS: Enoxaparin 40 MG/0.4 ML SYR SUBCUT SCH (17:09)
[2021-07-27 06:56] LABS: ABS Lymphocytes 1.2 10^3/ul (1.0-4.8); ABS Monocytes 0.6 10^3/ul (0-0.8); ABS Neutrophils 2.4 10^3/ul (1.5-7.7); Eosinophil % 0.6 %; Hematocrit 36 % (42-52); Hemoglobin 12.9 g/dL (14.0-18.0); Lymphocyte % 28.3 %; Mean Corpuscular HGB Conc 36 g/dL (31-36); Mean Corpuscular Hemoglobin 32 pg (27-31); Mean Corpuscular Volume 89 fL (80-94); Mean Platelet Volume 7.6 fL (7.4-10.4); Nucleated Red Blood Cells % 0.4; Platelet Count 179 10^3/uL (150-450); Red Blood Count 4.06 10^6 /uL (4.18-5.48); Red Cell Distribution Width 12 % (10-15); White Blood Count 4.3 10^3/uL (3.5-10.8)
[2021-07-27 07:11] LABS: Calcium 8.1 mg/dL (8.6-10.3); Magnesium 1.8 mg/dL (1.9-2.7); Potassium 3.6 mmol/L (3.5-5.0); eGFR CKD-EPI 96.3 (>60)
[2021-07-27] MEDS: Multivitamins/Minerals TAB PO SCH (10:03)
[2021-07-27] MEDS: cefTRIAXone 1 gm/50 mL NS BAG 1 GM/50 ML BAG IVPB SCH (11:52)
[2021-07-27] MEDS ORDERED: Magnesium Sulfate 2 gm BAG 2 GM/50 ML BAG IVPB ONE (17:42)
[2021-07-27] MEDS: Enoxaparin 40 MG/0.4 ML SYR SUBCUT SCH (23:02)
[2021-07-28] MEDS: Multivitamins/Minerals TAB PO SCH (09:35)
[2021-07-28] MEDS: cefTRIAXone 1 gm/50 mL NS BAG 1 GM/50 ML BAG IVPB SCH (09:39)
[2021-07-28] MEDS: Enoxaparin 40 MG/0.4 ML SYR SUBCUT SCH (22:20)
[2021-07-29] MEDS: cefTRIAXone 1 gm/50 mL NS BAG 1 GM/50 ML BAG IVPB SCH (09:13)
[2021-07-29] MEDS: Multivitamins/Minerals TAB PO SCH (09:20)
[2021-07-29 12:00] VITALS: BP 130/89
[2021-07-30] MEDS ORDERED: cefTRIAXone 1 gm/50 mL NS BAG 1 GM/50 ML BAG IVPB SCH (09:00)
== END 2021-07-29 14:22 | disposition swing bed (61) | DRG 137 ==
LOC: ED 12:37 → EDHOLD 18:12 → SUATTDRO 18:12 → MED 23:07
PROVIDERS: ADMIT Internal Medicine; ATTEND Hospitalist

== ENCOUNTER 2021-07-29 14:51 | Inpatient (IN) ==
[2021-07-29] MEDS: Enoxaparin 40 MG/0.4 ML SYR SUBCUT SCH (20:51)
[2021-07-30] MEDS: cefTRIAXone 1 gm/50 mL NS BAG 1 GM/50 ML BAG IVPB SCH (09:06)
[2021-07-30] MEDS: Enoxaparin 40 MG/0.4 ML SYR SUBCUT SCH (21:26)
[2021-07-31] MEDS: cefTRIAXone 1 gm/50 mL NS BAG 1 GM/50 ML BAG IVPB SCH (09:03)
[2021-07-31] MEDS: Enoxaparin 40 MG/0.4 ML SYR SUBCUT SCH (20:46)
[2021-08-01] MEDS: Enoxaparin 40 MG/0.4 ML SYR SUBCUT SCH (19:53)
[2021-08-02] MEDS: Enoxaparin 40 MG/0.4 ML SYR SUBCUT SCH (21:58)
[2021-08-03] MEDS ORDERED: Polyethylene Glycol 3350 17 GM PACKET PO PRN (05:41)
[2021-08-03 18:22] LABS: Rapid COVID-19 Molecular Detected (Undetected)
[2021-08-03] MEDS: Senna TAB 8.6 mg TAB PO PRN (20:16)
[2021-08-03] MEDS: Enoxaparin 40 MG/0.4 ML SYR SUBCUT SCH (20:16)
[2021-08-04] MEDS: Enoxaparin 40 MG/0.4 ML SYR SUBCUT SCH (22:01)
[2021-08-05] MEDS: Enoxaparin 40 MG/0.4 ML SYR SUBCUT SCH (22:01)
[2021-08-06] MEDS: Enoxaparin 40 MG/0.4 ML SYR SUBCUT SCH (20:43)
[2021-08-07 05:48] LABS: ABS Basophils 0.1 10^3/ul (0-0.2); ABS Eosinophils 0.1 10^3/ul (0-0.6); ABS Lymphocytes 2.4 10^3/ul (1.0-4.8); ABS Monocytes 0.8 10^3/ul (0-0.8); ABS Neutrophils 4.1 10^3/ul (1.5-7.7); Eosinophil % 1.5 %; Hematocrit 40 % (42-52); Hemoglobin 13.7 g/dL (14.0-18.0); Lymphocyte % 32.1 %; Mean Corpuscular HGB Conc 35 g/dL (31-36); Mean Corpuscular Hemoglobin 31 pg (27-31); Mean Corpuscular Volume 91 fL (80-94); Mean Platelet Volume 6.5 fL (7.4-10.4); Nucleated Red Blood Cells % 0.2; Platelet Count 631 10^3/uL (150-450); Red Blood Count 4.37 10^6 /uL (4.18-5.48); Red Cell Distribution Width 13 % (10-15); White Blood Count 7.5 10^3/uL (3.5-10.8)
[2021-08-07 06:07] LABS: Albumin 3.9 g/dL (3.2-5.2); Albumin/Globulin Ratio 1.3 (1-3); Calcium 9.5 mg/dL (8.6-10.3); Magnesium 1.9 mg/dL (1.9-2.7); Potassium 4.4 mmol/L (3.5-5.0); Total Bilirubin 0.6 mg/dL (0.2-1.0); Total Protein 6.9 g/dL (6.4-8.9); eGFR CKD-EPI 87.7 (>60)
[2021-08-07] MEDS: Enoxaparin 40 MG/0.4 ML SYR SUBCUT SCH ×2 (20:06→20:10)
[2021-08-08] MEDS: Enoxaparin 40 MG/0.4 ML SYR SUBCUT SCH (20:21)
[2021-08-09] MEDS: Senna TAB 8.6 mg TAB PO PRN (20:40)
[2021-08-09] MEDS: Enoxaparin 40 MG/0.4 ML SYR SUBCUT SCH (20:40)
[2021-08-10] MEDS: Enoxaparin 40 MG/0.4 ML SYR SUBCUT SCH (21:18)
[2021-08-11] MEDS: Enoxaparin 40 MG/0.4 ML SYR SUBCUT SCH (20:27)
[2021-08-12 12:33] LABS: Rapid COVID-19 Molecular Detected (Undetected)
[2021-08-12] MEDS: Enoxaparin 40 MG/0.4 ML SYR SUBCUT SCH (21:10)
[2021-08-13] MEDS: Enoxaparin 40 MG/0.4 ML SYR SUBCUT SCH (20:24)
[2021-08-14] MEDS: Enoxaparin 40 MG/0.4 ML SYR SUBCUT SCH (20:13)
[2021-08-15] MEDS: Enoxaparin 40 MG/0.4 ML SYR SUBCUT SCH (21:45)
[2021-08-16] MEDS: Enoxaparin 40 MG/0.4 ML SYR SUBCUT SCH (21:00)
[2021-08-17] MEDS: Enoxaparin 40 MG/0.4 ML SYR SUBCUT SCH (19:41)
[2021-08-18] MEDS ORDERED: COVID-19 VACCINE, TRIS(PFIZER)/PF 30 MCG/0.3 ML IM ONE (15:00)
[2021-08-18] MEDS: Enoxaparin 40 MG/0.4 ML SYR SUBCUT SCH (19:47)
[2021-08-19 13:29] LABS: Rapid COVID-19 Molecular Detected (Undetected)
[2021-08-19] MEDS: Enoxaparin 40 MG/0.4 ML SYR SUBCUT SCH (21:02)
[2021-08-20] MEDS: Enoxaparin 40 MG/0.4 ML SYR SUBCUT SCH (19:59)
[2021-08-21] MEDS: Enoxaparin 40 MG/0.4 ML SYR SUBCUT SCH (20:58)
[2021-08-22] MEDS: Enoxaparin 40 MG/0.4 ML SYR SUBCUT SCH (21:35)
[2021-08-23] MEDS: Enoxaparin 40 MG/0.4 ML SYR SUBCUT SCH (20:57)
[2021-08-24] MEDS: Enoxaparin 40 MG/0.4 ML SYR SUBCUT SCH (20:59)
[2021-08-25] MEDS: Enoxaparin 40 MG/0.4 ML SYR SUBCUT SCH (20:15)
[2021-08-26 07:56] LABS: ABS Eosinophils 0.2 10^3/ul (0-0.6); ABS Lymphocytes 2.5 10^3/ul (1.0-4.8); ABS Monocytes 0.7 10^3/ul (0-0.8); ABS Neutrophils 3.7 10^3/ul (1.5-7.7); Eosinophil % 3.1 %; Hematocrit 39 % (42-52); Lymphocyte % 34.7 %; Mean Corpuscular HGB Conc 34 g/dL (31-36); Mean Corpuscular Hemoglobin 31 pg (27-31); Mean Corpuscular Volume 93 fL (80-94); Mean Platelet Volume 7.3 fL (7.4-10.4); Nucleated Red Blood Cells % 0.1; Platelet Count 220 10^3/uL (150-450); Red Blood Count 4.16 10^6 /uL (4.18-5.48); Red Cell Distribution Width 13 % (10-15); White Blood Count 7.1 10^3/uL (3.5-10.8)
[2021-08-26 11:14] LABS: Rapid COVID-19 Molecular Undetected (Undetected)
[2021-08-26] MEDS: Enoxaparin 40 MG/0.4 ML SYR SUBCUT SCH (20:43)
[2021-08-27] MEDS: Enoxaparin 40 MG/0.4 ML SYR SUBCUT SCH (20:06)
[2021-08-28] MEDS: Enoxaparin 40 MG/0.4 ML SYR SUBCUT SCH (20:15)
[2021-08-29 06:40] LABS: ABS Eosinophils 0.2 10^3/ul (0-0.6); ABS Lymphocytes 2.3 10^3/ul (1.0-4.8); ABS Monocytes 0.6 10^3/ul (0-0.8); ABS Neutrophils 3.6 10^3/ul (1.5-7.7); Eosinophil % 3.5 %; Hematocrit 39 % (42-52); Hemoglobin 13.5 g/dL (14.0-18.0); Lymphocyte % 33.6 %; Mean Corpuscular HGB Conc 35 g/dL (31-36); Mean Corpuscular Hemoglobin 32 pg (27-31); Mean Corpuscular Volume 92 fL (80-94); Mean Platelet Volume 7.9 fL (7.4-10.4); Nucleated Red Blood Cells % 0.1; Platelet Count 197 10^3/uL (150-450); Red Blood Count 4.21 10^6 /uL (4.18-5.48); Red Cell Distribution Width 13 % (10-15); White Blood Count 6.7 10^3/uL (3.5-10.8)
[2021-08-29 07:08] LABS: Blood Urea Nitrogen 17 mg/dL (6-24); CO2 Carbon Dioxide 25 mmol/L (22-32); Chloride 105 mmol/L (101-111); Glucose 86 mg/dL (70-100); Sodium 138 mmol/L (135-145); eGFR CKD-EPI 92.9 (>60)
[2021-08-29 07:56] LABS: Anion Gap 8 mmol/L (2-11)
[2021-08-29 08:10] LABS: ALT 17 U/L (7-52); Albumin/Globulin Ratio 1.5 (1-3); Alkaline Phosphatase 87 U/L (35-149); Globulin 2.6 g/dL (2-4); Total Protein 6.6 g/dL (6.4-8.9)
[2021-08-29 09:14] LABS: Direct Bilirubin Redraw 0.1 mg/dL (0.03-0.18)
[2021-08-29] MEDS: Enoxaparin 40 MG/0.4 ML SYR SUBCUT SCH (20:13)
[2021-08-30] MEDS: Enoxaparin 40 MG/0.4 ML SYR SUBCUT SCH (21:15)
[2021-08-31] MEDS: Enoxaparin 40 MG/0.4 ML SYR SUBCUT SCH (19:47)
[2021-09-01] MEDS: Enoxaparin 40 MG/0.4 ML SYR SUBCUT SCH (22:00)
[2021-09-02] MEDS: Enoxaparin 40 MG/0.4 ML SYR SUBCUT SCH (21:11)
[2021-09-03 10:13] VITALS: BP 139/100
== END 2021-09-03 16:00 | DRG 137 ==
LOC: SUATTDRO 14:51 → MED 14:51
PROVIDERS: ADMIT Internal Medicine; ATTEND Internal Medicine